=== PATIENT | female | born 1975 | race Caucasian/White ===

== ENCOUNTER → 2020-07-08 10:23 | Outpatient (BNVA) | payer OTHER, SELFPAY | PROVIDERS: PCP Internal Medicine; Referring Provider Internal Medicine; Visit Provider Surgery | DX: E66.9 Obesity, unspecified (principal); Z68.39 Body mass index [BMI] 39.0-39.9, adult; Z71.3 Dietary counseling and surveillance | CPT/HCPCS: 99214 ==

== ENCOUNTER → 2020-08-16 10:55 | Outpatient (BNVA) | payer OTHER, SELFPAY | PROVIDERS: PCP Internal Medicine; Visit Provider Physician Assistant | DX: Z01.818 Encounter for other preprocedural examination (principal); E66.9 Obesity, unspecified; Z68.39 Body mass index [BMI] 39.0-39.9, adult | CPT/HCPCS: 99212 ==

== ENCOUNTER 2020-08-18 09:33 | Outpatient (REF) | payer OTHER, SELFPAY ==
--- NOTE | 2020-08-18 09:50 | ECG_ITS ---
Test Reason : SOB Blood Pressure : / mmHG Vent. Rate : 066 BPM Atrial Rate : 066 BPM P-R Int : 156 ms QRS Dur : 100 ms QT Int : 414 ms P-R-T Axes : 039 039 028 degrees QTc Int : 434 ms Normal sinus rhythm Normal ECG When compared with ECG of 29-JAN-2020 11:52, No significant change was found Referred By: Rose Craven Electronically Signed By:PIPPA ARREOLA MD
[2020-08-18 11:17] LABS: Albumin Level 3.7 g/dL (3.5-5.0); Anion Gap 12 (12-20); Blood Urea Nitrogen 13 mg/dL (9-16); Calcium 8.4 mg/dL (8.4-10.2); Carbon Dioxide 19 mmol/L (22-29); Chloride 112 mmol/L (96-108); Estimated Glomerular Filt Rate > 60; Glucose Random 107 mg/dL (60-115); Potassium 4.4 mmol/l (3.3-5.1); Sodium 139 mmol/L (135-145)
[2020-08-18 12:18] LABS: Glucose Urine UA NEG (NEG); Leukocyte Esterase Urine NEG (NEG); Nitrite Urine NEG (NEG); PH 5.5 (5.0-8.0); Specific Gravity - Urine >= 1.030 (1.005-1.025); Urine Blood NEG (NEG); Urine Ketones NEG (NEG); Urine Protein NEG (NEG-TRACE)
[2020-08-18 12:19] LABS: Appearance Urine HAZY; Color Urine YELLOW
== END 2020-08-18 09:34 | disposition home or self-care (01) ==
LOC: HO.LAB 09:33
PROVIDERS: PCP Internal Medicine; Visit Provider Surgery
DX: Z01.818 Encounter for other preprocedural examination (principal); R06.02 Shortness of breath
CPT/HCPCS: 80048; 81003; 82040; 93005

== ENCOUNTER 2020-08-20 12:43 | Outpatient (REF) | payer OTHER, SELFPAY ==
[2020-08-20 14:18] LABS: MANUAL DIFF FLAG NO
[2020-08-20 14:24] LABS: Basophils Percent Auto 0.5 % (0-2); Eosinophils Absolute Auto 0.3 X10*3/uL (0.0-0.4); Eosinophils Percent Auto 3.5 % (0-4); Hematocrit 42.7 % (37-47); Hemoglobin 14.2 g/dl (12.0-16.0); Imm Gran Abs Auto 0.02 X10*3/uL (0.00-0.03); Imm Gran Pct Auto 0.3 % (0.0-0.4); Lymphocytes Absolute Auto 2.3 X10*3/uL (1.2-4.9); Lymphocytes Percent Auto 29.1 % (20-40); Mean Corpuscular HGB Conc 33.3 g/dl (31.0-35.0); Mean Corpuscular Volume 96.2 fL (80-98); Mean Platelet Volume 10.5 fL (9.4-12.3); Monocytes Absolute Auto 0.8 X10*3/uL (0.1-1.2); Monocytes Percent Auto 9.5 % (2-11); Neutrophils Absolute Auto 4.5 X10*3/uL (2.0-8.3); Neutrophils Percent Auto 57.1 % (45-73); Platelet Count 246 X10*3/uL (160-400); Red Blood Count 4.44 X10*6/uL (4.20-5.50); Red Cell Distribution Width 12.2 % (11.0-16.0)
== END 2020-08-20 12:44 | disposition home or self-care (01) ==
LOC: HO.LAB 12:43
PROVIDERS: Absent Provider Surgery; PCP Internal Medicine; Visit Provider Physician Assistant
DX: Z01.818 Encounter for other preprocedural examination (principal); Z90.3 Acquired absence of stomach [part of]
CPT/HCPCS: 36415; 85025

== ENCOUNTER 2020-08-25 16:39 | Inpatient (IN) | payer OTHER, SELFPAY ==
[2020-08-19 09:57] VITALS: BMI 39.8
--- NOTE | 2020-08-20 13:49 | HO.ANESPROP2 ---
Documented by User: Laura Dawn 08/24/20 13:16 HPI - Anesthesia Eval Consult details Narrative: 45yo F for Gastrectomy Sleeve s/p c-spine fusion PMFSH Past Medical History Medical History (Updated 08/19/20 @ 10:07 by Raquel Soares) Anxiety Chronic back pain Crohn's disease DDD (degenerative disc disease) Depression Hypothyroidism Lab test negative for COVID-19 virus Obesity (BMI 30-39.9) Obstructive sleep apnea Type II diabetes mellitus Wears partial dentures Family History Family History Father No problems noted. Mother Diabetes mellitus Brother No problems noted. Brother No problems noted. Brother No problems noted. Brother No problems noted. Brother No problems noted. Sister Type I diabetes mellitus Sister No problems noted. Son No problems noted. Son No problems noted. Son No problems noted. Daughter No problems noted. Daughter No problems noted. Surgical History Surgical History (Updated 08/19/20 @ 10:02 by Raquel Soares) History of Achilles tendon repair History of bilateral tubal ligation History of section History of fusion of cervical spine History of laparoscopic cholecystectomy Other specified postprocedural states Social History Social History (Updated 08/19/20 @ 10:06 by Raquel Soares) Alcohol intake: never Smoking Status: Never smoker Meds Allergies Allergy/AdvReac Type Severity Reaction Status Date / Time codeine [CODEINE] Allergy Intermediate HIVES, rash Verified 08/19/20 10:08 hydrocodone [From VICODIN] Allergy Intermediate HIVES Verified 08/19/20 10:08 Home Medications Medication Instructions Recorded Confirmed Type buspirone 5 mg tablet 5 mg PO BID tab 07/08/20 08/19/20 History calcium carbonate 600 mg calcium 600 mg PO BID tab 07/08/20 07/08/20 History (1,500 mg) tablet clonazepam 1 mg tablet 1 mg PO BID tab 07/08/20 08/19/20 History infliximab 100 mg intravenous IV Q8W ea 07/08/20 07/08/20 History solution levothyroxine 75 mcg tablet 75 mcg PO DAILY 07/08/20 08/19/20 History trazodone 100 mg tablet 100 mg PO BEDTIME 08/16/20 08/19/20 History Exam Exam Date and Time: August 20, 2020 1349 Height,Weight and Vital Signs: Height 5 ft 4 in Weight 105.233 kg Pertinent Lab Results Pertinent Lab Results: Laboratory Tests 08/18/20 09:49 Blood Type A Positive Antibody Screen NEGATIVE Laboratory Tests 08/18/20 09:49 Sodium 139 Potassium 4.4 Chloride 112 H Carbon Dioxide 19 L BUN 13 Creatinine 0.71 Calcium 8.4 Albumin 3.7 Laboratory Tests 08/20/20 13:05 WBC 8.0 Hgb 14.2 Hct 42.7 Plt Count 246 Narrative Narrative: EKG 08/2020: NSR Assessment and Plan Assessment Anesthesia Assessment: Chart Reviewed Documented by User: Jazlyn Anti 08/25/20 13:25 PMF Past Medical History Medical History (Updated 08/19/20 @ 10:07 by Raquel Soares) Anxiety Chronic back pain Crohn's disease DDD (degenerative disc disease) Depression Hypothyroidism Lab test negative for COVID-19 virus Obesity (BMI 30-39.9) Obstructive sleep apnea Type II diabetes mellitus Wears partial dentures Family History Family History Father No problems noted. Mother Diabetes mellitus Brother No problems noted. Brother No problems noted. Brother No problems noted. Brother No problems noted. Brother No problems noted. Sister Type I diabetes mellitus Sister No problems noted. Son No problems noted. Son No problems noted. Son No problems noted. Daughter No problems noted. Daughter No problems noted. Surgical History Surgical History (Updated 08/19/20 @ 10:02 by Raquel Soares) History of Achilles tendon repair History of bilateral tubal ligation History of section History of fusion of cervical spine History of laparoscopic cholecystectomy Other specified postprocedural states Social History Social History (Updated 08/19/20 @ 10:06 by Raquel Soares) Alcohol intake: never Smoking Status: Never smoker Meds Allergies Allergy/AdvReac Type Severity Reaction Status Date / Time codeine [CODEINE] Allergy Intermediate HIVES, rash Verified 08/19/20 10:08 hydrocodone [From VICODIN] Allergy Intermediate HIVES Verified 08/19/20 10:08 Home Medications Medication Instructions Recorded Confirmed Type buspirone 5 mg tablet 5 mg PO BID tab 07/08/20 08/19/20 History calcium carbonate 600 mg calcium 600 mg PO BID tab 07/08/20 07/08/20 History (1,500 mg) tablet clonazepam 1 mg tablet 1 mg PO BID tab 07/08/20 08/19/20 History infliximab 100 mg intravenous IV Q8W ea 07/08/20 07/08/20 History solution levothyroxine 75 mcg tablet 75 mcg PO DAILY 07/08/20 08/19/20 History trazodone 100 mg tablet 100 mg PO BEDTIME 08/16/20 08/19/20 History Exam Airway Mallampati Class: I TM Dist: >3cm Neck ROM: Full Partial: Upper Loose/Missing/Broken Teeth: Yes, Upper and Lower Heart: RRR Lungs: CTA Assessment and Plan Assessment Anesthesia Assessment: Anesthesia Plan Discussed and Chart Reviewed Final Anesthetic Review NPO: Yes ASA Class: II Final Preanesthetic Review: Meds/Allgs Chart Reviewed, Consent Obtained/Reviewed and Anes Risks/Benef Reviewed Patient Risk: Low Procedure Risk: Intermediate Anesthetic Plan Anesthetic Plan: GA Disposition: Standard PACU
--- NOTE | 2020-08-24 17:24 | MHC.SHP ---
Pre-Procedural Eval Section B Chief Complaint: obesity Allergies: Allergies Allergy/AdvReac Type Severity Reaction Status Date / Time codeine [CODEINE] Allergy Intermediate HIVES, rash Verified 08/19/20 10:08 hydrocodone [From VICODIN] Allergy Intermediate HIVES Verified 08/19/20 10:08 Plan Patient has been examined and remains a candidate for the planned procedure
[2020-08-25] VITALS (13 sets, daily range): BP systolic 107–173; BP diastolic 69–89; PULSE 58–91; RESP 12–18; TEMP 36–36.8; O2SAT 86–100
[2020-08-25 10:54] LABS: COVID-19 Test Negative (Negative); IDNOW Serial# 9DD0AD1C
[2020-08-25] MEDS: Lactated Ringers 1,000 ML 125 ML IVCONT ×2 (11:02→19:52)
--- NOTE | 2020-08-25 13:32 | HO.ANESPROP2 ---
FORMERLY [facility] Past Medical History Medical History (Updated 08/19/20 @ 10:07 by Raquel Soares) Anxiety Chronic back pain Crohn's disease DDD (degenerative disc disease) Depression Hypothyroidism Lab test negative for COVID-19 virus Obesity (BMI 30-39.9) Obstructive sleep apnea Type II diabetes mellitus Wears partial dentures Family History Family History Father No problems noted. Mother Diabetes mellitus Brother No problems noted. Brother No problems noted. Brother No problems noted. Brother No problems noted. Brother No problems noted. Sister Type I diabetes mellitus Sister No problems noted. Son No problems noted. Son No problems noted. Son No problems noted. Daughter No problems noted. Daughter No problems noted. Surgical History Surgical History (Updated 08/19/20 @ 10:02 by Raquel Soares) History of Achilles tendon repair History of bilateral tubal ligation History of section History of fusion of cervical spine History of laparoscopic cholecystectomy Other specified postprocedural states Social History Social History (Updated 08/19/20 @ 10:06 by Raquel Soares) Alcohol intake: never Smoking Status: Never smoker Meds Allergies Allergy/AdvReac Type Severity Reaction Status Date / Time codeine [CODEINE] Allergy Intermediate HIVES, rash Verified 08/19/20 10:08 hydrocodone [From VICODIN] Allergy Intermediate HIVES Verified 08/19/20 10:08 Home Medications Medication Instructions Recorded Confirmed Type buspirone 5 mg tablet 5 mg PO BID tab 07/08/20 08/19/20 History calcium carbonate 600 mg calcium 600 mg PO BID tab 07/08/20 07/08/20 History (1,500 mg) tablet clonazepam 1 mg tablet 1 mg PO BID tab 07/08/20 08/19/20 History infliximab 100 mg intravenous IV Q8W ea 07/08/20 07/08/20 History solution levothyroxine 75 mcg tablet 75 mcg PO DAILY 07/08/20 08/19/20 History trazodone 100 mg tablet 100 mg PO BEDTIME 08/16/20 08/19/20 History Exam Exam Date and Time: August 25, 2020 1332 Height,Weight and Vital Signs: Height 5 ft 4 in Weight 105.233 kg Last Vital Signs Temp 97.9 F 08/25/20 10:42 Pulse 68 08/25/20 10:42 Resp 16 08/25/20 10:42 BP 107/70 08/25/20 10:42 Pulse Ox 95 08/25/20 10:42 Pertinent Lab Results Pertinent Lab Results: Laboratory Tests 08/18/20 08/25/20 09:49 10:30 COVID-19 (ADONAY) Negative COVID-19 Clin Com See Note Blood Type A Positive Antibody Screen NEGATIVE Assessment and Plan Assessment Anesthesia Assessment: Anesthesia Plan Discussed and Chart Reviewed Final Anesthetic Review NPO: Yes ASA Class: II Final Preanesthetic Review: No Changes in Pt Med Stat
--- NOTE | 2020-08-25 16:35 | W.PM.OPN ---
Operative Note Operative Note Date of Service: 08/25/20 Narrative: Patient was brought into the operating room and placed on the operating room table in the supine position. General anesthesia was induced. Normal DVT prophylaxis was instituted and the patient received 2 grams of cefotetan preoperatively. The abdomen was then prepped and draped in the normal sterile fashion. A safety time-out was performed. A mixture of 1% lidocaine with epinephrine and ??% Marcaine plain was used to anesthetize the planned incision site in the left upper quadrant. A #11 scalpel was used to make a 5 mm left upper quadrant transverse incision through which a veress needle was placed. Three pops were heard going through the fascia. A saline drop test was used to confirm that the veress needle was intraabdominal. An optiview technique was then used to place a 5mm port in the left upper quadrant. A 5 mm 30 degree laproscope was then placed through this port and the abdominal cavity was surveyed and was normal With the exception of some omental adhesions to the central abdominal wall. The patient was placed in reverse Trendelenburg positioning. A sarah liver retractor was then placed in the subxyphoid position and it was used to hold up the left lobe of the liver to the abdominal wall. This was secured to the bed using the liver retractor camacho. A NINI block was then performed for pain control on the right side of the abdomen. A 5 mm port was placed in the right upper quadrant near the falciform ligament. A 12 mm port was then placed in the mid epigastrium. One additional 5 mm port was placed in the left upper quadrant just to the left of the placement of the first port. I then performed a NINI block on the left side of the abdomen. I then removed the epigastric fat pad; there was no evidence of hiatal hernia. I then opened up the angle of His. We then gained entry into the lesser sac about 4-5 cm from the pylorus. I had anesthesia place a 34 Portuguese orogastric tube into the distal antrum to use as a sizing tool for gastric pouch size. I divided the short gastric vessels up to the angle of His. We then started the creation of the gastric pouch by firing a 60 mm purple load endostapler up the stomach about 4-5 cm from the pylorus. We completed the creation of the gastric pouch using a total of 4 firings of a 60 mm purple load stapler. We had anesthesia remove the orogastric tube, then we clamped across the distal antrum using a fired 60 mm endostapler. We flattened the patient and then instilled normal saline surrounding the newly created staple line. I then performed an on-table endoscopy. I passed the gastroscopy into the posterior oropharynx and down the esophagus evaluating the esophageal mucosa which was normal. There was no evidence of hiatal hernia. I passed the gastroscope into the gastric pouch and insufflated the gastric pouch. There was healthy pink mucosa and no evidence of active bleeding. There was no evidence of leak on laparoscopy. I desufflated the gastric pouch and removed the endoscope. I removed the endostapler from the abdomen and suctioned the fluid from the left upper quadrant. I then removed the partial gastrectomy specimen through the epigastric 12 mm port site. I reapproximated the 12 mm port using a 0 maxon suture with a laparoscopic suture passer. I instilled local anesthetic into the fascial closure site and tied the suture down at a pressure of 8-10 mm of Hg. There was no residual fascial defect. We removed the liver retractor and the left upper quadrant 5 mm ports under direct visualization. There was no evidence of any active bleeding. I desufflated the abdomen through the last remaining port and removed the laparoscope an d 5 mm port. We reapproximated all incisions with a 4-0 monocryl subcuticular stitch. We cleaned and dried the abdominal skin and applied dermabond skin glue. All count were correct at the end of the case. The patient was awake and in stable condition prior to extubation and transfer to the recovery room.
--- NOTE | 2020-08-25 16:36 | PM.OP ---
Brief Operative Note Date of Service: 08/25/20 Pre-op diagnosis: obesity BMI 39.6, sleep apnea, type 2 diabetes mellitus Post-op diagnosis: same Procedure: laparoscopic sleeve gastrectomy, brittny block, and intraoperative endoscopy Implants: none Surgeon: Rose Craven MD Anesthesia: GETA Fire Alarm Technician: Jeannie German Estimated blood loss (mL): 10 Pathology: other ( partial gastrectomy) Condition: stable Disposition: PACU
[2020-08-25 17:15] LABS: Glucose, Whole Blood 152 mg/dL (60-115)
[2020-08-25] MEDS: fentaNYL citrate/PF 100 MCG/2 ML VIAL 25 MCG IVPUSH ×2 (17:18→17:40)
[2020-08-25] MEDS: ondansetron HCL 4 MG/2 ML VIAL IVPUSH (17:26)
[2020-08-25] MEDS: oxyCODONE HCl Immed Release 5 MG TABLET 10 MG PO (18:58)
[2020-08-25] MEDS: Metoclopramide HCl 10 MG/2 ML VIAL IVPUSH (19:51)
[2020-08-25] MEDS: busPIRone HCl 5 MG TABLET PO (21:02)
[2020-08-25] MEDS: traZODone HCL 100 MG TABLET PO (21:02)
[2020-08-25] MEDS: clonazePAM 1 MG TABLET PO (21:02)
[2020-08-25] MEDS: Famotidine/PF 20 MG/2 ML VIAL IVPUSH (21:29)
[2020-08-26] MEDS: ondansetron HCL 4 MG/2 ML VIAL IVPUSH ×2 (00:48→08:52)
[2020-08-26] MEDS: 0.9 % Sodium Chloride Flush 3 ML SYRINGE IVFLUSH (00:48)
[2020-08-26 03:07] VITALS: BP 142/67; PULSE 65; RESP 16; TEMP 36.9; O2SAT 100
[2020-08-26] MEDS: HYDROmorphone HCl 0.5 MG/0.5 ML SYRINGE 0.25 MG IVPUSH ×2 (03:58→08:49)
[2020-08-26 04:25] LABS: Basophils Percent Auto 0.1 % (0-2); Eosinophils Percent Auto 0.1 % (0-4); Hematocrit 39.2 % (37-47); Hemoglobin 13.2 g/dl (12.0-16.0); Imm Gran Abs Auto 0.04 X10*3/uL (0.00-0.03); Imm Gran Pct Auto 0.3 % (0.0-0.4); Lymphocytes Absolute Auto 0.9 X10*3/uL (1.2-4.9); MANUAL DIFF FLAG NO; Mean Corpuscular HGB Conc 33.7 g/dl (31.0-35.0); Mean Corpuscular Volume 95.1 fL (80-98); Mean Platelet Volume 9.9 fL (9.4-12.3); Monocytes Absolute Auto 0.6 X10*3/uL (0.1-1.2); Neutrophils Absolute Auto 10.8 X10*3/uL (2.0-8.3); Neutrophils Percent Auto 87.5 % (45-73); Platelet Count 206 X10*3/uL (160-400); Red Blood Count 4.12 X10*6/uL (4.20-5.50); Red Cell Distribution Width 11.9 % (11.0-16.0); White Blood Count 12.3 X10*3/uL (4.8-10.8)
[2020-08-26 04:46] LABS: Anion Gap 14 (12-20); Blood Urea Nitrogen 8 mg/dL (9-16); Carbon Dioxide 20 mmol/L (22-29); Chloride 103 mmol/L (96-108); Estimated Glomerular Filt Rate > 60; Glucose Random 126 mg/dL (60-115); Potassium 4.1 mmol/l (3.3-5.1); Sodium 133 mmol/L (135-145)
[2020-08-26] MEDS: Lactated Ringers 1,000 ML 125 ML IVCONT (05:09)
[2020-08-26] MEDS: Levothyroxine Sodium 75 MCG TABLET PO (06:21)
[2020-08-26 07:59] VITALS: BP 124/65; PULSE 75; RESP 16; TEMP 37; O2SAT 100
[2020-08-26] MEDS: clonazePAM 1 MG TABLET PO (08:51)
[2020-08-26] MEDS: busPIRone HCl 5 MG TABLET PO (08:51)
[2020-08-26] MEDS: Famotidine/PF 20 MG/2 ML VIAL IVPUSH (08:52)
--- NOTE | 2020-08-26 09:50 | HO.POSTANES ---
Post Anesthesia Evaluation Post Anesthesia Evaluation Vital Signs: Vital Signs Temp Pulse Resp BP Pulse Ox 08/26/20 07:59 98.6 F 75 16 124/65 100 08/26/20 03:07 98.5 F 65 16 142/67 H 100 08/25/20 23:52 98.2 F 91 18 136/85 100 Anesthesia: General Endotracheal-GETA Mental Status: Awake Pain Control: Satisfactory Nausea/Vomiting: None Hydration: Adequate Anesthesia-Related Issues: No Anes. Related Issues
--- NOTE | 2020-08-26 10:23 | PM.PNGS ---
Subjective Subjective Date of Service: 08/26/20 Interval history: Pod #1 s/p lap sleeve gastrectomy. Doing well. Tolerating stage 3 diet, ambulating in hallway. Pain well controlled. Denies nausea or vomiting. Vitals and labs reviewed and are within limit for post op day 1. On exam, patient is well appearing, abdomen is soft, nd, mild appropriate incisional tenderness. Incisions c/d/I with dermabond in place. Plan: d/c home today. Follow up with me in 2 weeks. Physical Exam Vital Signs: Vital Signs: Last Vital Signs Temp 98.6 F 08/26/20 07:59 Pulse 75 08/26/20 07:59 Resp 16 08/26/20 07:59 BP 124/65 08/26/20 07:59 Pulse Ox 100 08/26/20 07:59 Body Mass Index 39.8 Const: General: cooperative, healthy appearing, comfortable, no acute distress and awake GI: Inspection: Yes incision (Clean dry intact with Dermabond in place) and Yes obesity Palpation (GI): Soft to palpation and Tenderness to palpation present (GI) (Mild appropriate incisional tenderness) Extrem: General: Yes normal to inspection, Yes no pedal edema and Yes no calf tenderness Progress Note: A&P Assessment and plan (1) History of sleeve gastrectomy: Status: Acute Assessment and Plan: Postoperative day 1. Status post laparoscopic sleeve gastrectomy doing well. Patient is tolerating stage III diet. She will be discharged home to follow up with me in 2 weeks time frame. Fall Risk Details Current Medications: Current Medications Generic Name Dose Route Start Last Admin Trade Name Freq PRN Reason Stop Dose Admin Albuterol Sulfate 2.5 mg 08/25/20 13:34 Albuterol Sulfate (0.083%) 2.5 Mg/3 Ml Vial.Neb INHALE ONCE PRN Wheezing Buspirone HCl 5 mg 08/25/20 21:00 08/26/20 08:51 Buspirone Hcl 5 Mg Tablet PO 5 mg BID NITA Administration Clonazepam 1 mg 08/25/20 21:00 08/26/20 08:51 Clonazepam 1 Mg Tablet PO 1 mg BID NITA Administration Famotidine 20 mg 08/25/20 21:00 08/26/20 08:52 Famotidine/Pf 20 Mg/2 Ml Vial IVPUSH 20 mg BID NITA Administration Hydromorphone HCl 0.25 mg 08/25/20 16:39 08/26/20 08:49 Hydromorphone Hcl 0.5 Mg/0.5 Ml Syringe IVPUSH 0.25 mg Q4H PRN Administration Pain, Moderate (Pain Scale 4-6 Lactated Ringer's 1,000 mls @ 125 mls/hr 08/25/20 10:30 08/26/20 05:09 Lr IVCONT 125 mls/hr .Q8H NITA Administration Acetaminophen 1,000 mg in 100 mls @ 16.7 mls/hr 08/25/20 21:00 08/26/20 08:51 Ofirmev IV 16.7 mls/hr .Q6H NITA Administration Levothyroxine Sodium 75 mcg 08/26/20 06:00 08/26/20 06:21 Levothyroxine Sodium 75 Mcg Tablet PO 75 mcg DAILY NITA Administration Metoclopramide HCl 10 mg 08/25/20 16:39 08/25/20 19:51 Metoclopramide Hcl 10 Mg/2 Ml Vial IVPUSH 10 mg Q6H PRN Administration Nausea Ondansetron HCl 4 mg 08/26/20 00:00 08/26/20 08:52 Ondansetron Hcl 4 Mg/2 Ml Vial IVPUSH 4 mg Q8H NITA Administration Sodium Chloride 3 ml 08/26/20 00:00 08/26/20 08:52 0.9 % Sodium Chloride Flush 3 Ml Syringe IVFLUSH Not Given QSHIFT NITA Trazodone HCl 100 mg 08/25/20 21:00 08/25/20 21:02 Trazodone Hcl 100 Mg Tablet PO 100 mg BEDTIME NITA Administration Time Spent With Patient Time: Total time spent is greater than 50% in coordination of care (as documented) at patient's floor/unit and/or counseling patient: Time with patient: less than 15 minutes
--- NOTE | 2020-08-26 10:45 | MHC.CM.PN ---
PT ADMITTED S/P GASTRIC SLEEVE, PLAN TO DISCHARGE HOME W/NO SERVICES, TO TRANSPORT.
--- NOTE | 2020-08-26 10:46 | MHC.CM.PN ---
WILL ASK CM OFFICE TO UPDATE PCP
[2020-08-26 12:00] VITALS: BP 134/80; PULSE 65; RESP 16; TEMP 36.3; O2SAT 100
--- NOTE | 2020-08-26 12:04 | MHC.CM.PN ---
DISCHARGE NOTE: PT TO DISCHARGE HOME/SELF CARE TODAY, RN AWARE
--- NOTE | 2020-09-08 15:59 | PM.DS ---
DS: Providers Provider Date of admission: 08/25/20 16:39 Primary care physician: Bryanna Ulloa MD DS: Diagnosis Discharge Diagnosis (1) History of sleeve gastrectomy: Status: Acute DS: Medications Discharge Medications Home Medications: Home Medications Medication Instructions Recorded Confirmed buspirone 5 mg tablet 5 mg PO BID tab 07/08/20 09/07/20 clonazepam 1 mg tablet 1 mg PO BID tab 07/08/20 09/07/20 infliximab 100 mg intravenous IV Q8W ea 07/08/20 09/07/20 solution levothyroxine 75 mcg tablet 75 mcg PO DAILY 07/08/20 09/07/20 oxycodone 10 mg PO BID PRN 08/25/20 09/07/20 pregabalin 50 mg PO TID 08/25/20 09/07/20 topiramate 50 mg PO BID 08/25/20 09/07/20 trazodone 150 mg PO BEDTIME 08/25/20 09/07/20 Previous Rx's Medication Instructions Recorded acetaminophen 500 mg tablet 1,000 mg PO Q6H PRN #30 tab 08/16/20 docusate sodium 100 mg capsule 100 mg PO BID #30 cap 08/16/20 famotidine 20 mg tablet 20 mg PO DAILY #30 tab 08/16/20 promethazine 12.5 mg tablet 12.5 mg PO BID PRN #14 tab 09/06/20 DS: Summary Time Spent with Patient Time attestation: Total time spent providing and/or coordinating discharge services: Physical Exam Vital Signs: Vital Signs: Last Vital Signs Temp 97.3 F 08/26/20 12:00 Pulse 65 08/26/20 12:00 Resp 16 08/26/20 12:00 BP 134/80 08/26/20 12:00 Pulse Ox 100 08/26/20 12:00 Body Mass Index 39.8 DS: Data Data Completed and Pending Completed studies during hospitalization [Text1]: Pending at discharge 08/25/20 16:22 Surgical [PTH] Routine Procedures Excision of Stomach, Percutaneous Endoscopic Approach, Vertical (08/25/20) Labs on day of discharge: 08/18/20 09:49 Type and Screen Routine 08/25/20 Breakfast NPO Diet 08/25/20 10:19 Acetaminophen [Ofirmev] 1,000 mg in 100 ml IV PREOP 08/25/20 10:20 cefoTEtan disod/Dextrose,Iso [Cefotan] 2 gm in 50 ml IV PREOP 08/25/20 10:30 COVID-19 ID NOW ([place]) Stat Lactated Ringers [Lr] 1,000 ml IVCONT 125 mls/hr 08/25/20 10:50 Acetaminophen [Ofirmev] 1,000 mg in 100 ml IV As directed cefoTEtan disodium [Cefotan] 2 gm .ROUTE .STK-MED ONE 08/25/20 13:34 Continuous pulse oximetry CONT Oxygen administration Simple Mask 6 lpm Vital Signs Q1H Vital Signs Q5MIN Albuterol Sulfate (0.083%) [Ventolin (0.083%)] 2.5 mg INHALE ONCE PRN fentaNYL citrate/PF [Sublimaze] 25 mcg IVPUSH Q5M PRN fentaNYL citrate/PF [Sublimaze] 50 mcg IVPUSH Q5M PRN oxyCODONE HCl Immed Release [Roxicodone] 10 mg PO ONCE PRN oxyCODONE HCl Immed Release [Roxicodone] 5 mg PO ONCE PRN 08/25/20 14:09 Ketamine HCl/NS 50 mg IVPUSH .STK-MED ONE Midazolam HCl/PF [Versed] 2 mg .ROUTE .STK-MED ONE fentaNYL citrate/PF [Sublimaze] 50 mcg .ROUTE .STK-MED ONE 08/25/20 14:10 Lidocaine HCl 2 % MPF [Xylocaine 2 % MPF] 5 ml .ROUTE .STK-MED ONE Rocuronium [place] [Zemuron] 100 mg IV .STK-MED ONE dexAMETHasone sod phosphate [Decadron] 4 mg .ROUTE .STK-MED ONE ondansetron HCL [Zofran] 4 mg .ROUTE .STK-MED ONE 08/25/20 14:29 Bupivacaine MPF 0.25 % [Sensorcaine-MPF 0.25% 10 ML] 10 ml .ROUTE .STK-MED ONE Lidocaine HCl 1%/Epi 1:100,000 [Xylocaine 1 %-Epi 1:100,000] 20 ml .ROUTE .STK-MED ONE 08/25/20 15:10 Transfer Order Routine 08/25/20 16:03 HYDROmorphone HCl [Dilaudid] 2 mg .ROUTE .STK-MED ONE 08/25/20 16:05 Sugammadex Sodium [Bridion] 200 mg IVPUSH .STK-MED ONE 08/25/20 16:22 Surgical [PTH] Routine 08/25/20 16:39 Ambulate Q4H WHILE AWAKE Compression Therapy QSHIFT Head of bed elevation DIRECTED Incentive Spirometry Q1HR WHILE AWAKE Intake and Output Q4HR Up ad mark anthony .Continous Code Status Routine HYDROmorphone HCl [Dilaudid] 0.25 mg IVPUSH Q4H PRN Metoclopramide HCl [Reglan] 10 mg IVPUSH Q6H PRN 08/25/20 16:40 Vital Signs Q4H 08/25/20 17:01 Glucose, Whole Blood Routine 08/25/20 17:08 fentaNYL citrate/PF [Sublimaze] 100 mcg .ROUTE .STK-MED ONE 08/25/20 17:15 ondansetron HCL [Zofran] 4 mg .ROUTE .STK-MED ONE 08/25/20 17:23 ondansetron HCL [Zofran] 4 mg IVPUSH ONCE ONE 08/25/20 17:24 ondansetron HCL [Zofran] 4 mg IVPUSH ONCE ONE 08/25/20 18:00 ondansetron HCL [Zofran] 4 mg IVPUSH Q8H 08/25/20 Dinner Bariatric Phase 2 Diet 08/25/20 21:00 Acetaminophen [Ofirmev] 1,000 mg in 100 ml IV 16.7 mls/hr Famotidine/PF [Pepcid/PF] 20 mg IVPUSH BID busPIRone HCl [BuSpar] 5 mg PO BID clonazePAM [KlonoPIN] 1 mg PO BID traZODone HCL [Desyrel] 100 mg PO BEDTIME 08/26/20 00:00 0.9 % Sodium Chloride Flush [NS Flush] 3 ml IVFLUSH QSHIFT ondansetron HCL [Zofran] 4 mg IVPUSH Q8H 08/26/20 03:00 cefoTEtan disodium [Cefotan] 2 gm 0.9 % Sodium Chloride [Ns] 100 ml IV POSTOP@0300 08/26/20 03:04 cefoTEtan disodium [Cefotan] 2 gm .ROUTE .STK-MED ONE 08/26/20 04:12 Basic Metabolic Panel DAILY@0500 08/26/20 04:13 Complete Blood Count Auto Diff DAILY@05008/26/20 06:00 Levothyroxine Sodium [Synthroid] 75 mcg PO DAILY Laboratory Last Values WBC 12.3 X10*3/uL (4.8-10.8) H 08/26/20 04:13 RBC 4.12 X10*6/uL (4.20-5.50) L 08/26/20 04:13 Hgb 13.2 g/dl (12.0-16.0) 08/26/20 04:13 Hct 39.2 % (37-47) 08/26/20 04:13 MCV 95.1 fL (80-98) 08/26/20 04:13 MCH 32.0 pg (27.0-33.0) 08/26/20 04:13 MCHC 33.7 g/dl (31.0-35.0) 08/26/20 04:13 RDW 11.9 % (11.0-16.0) 08/26/20 04:13 Plt Count 206 X10*3/uL (160-400) 08/26/20 04:13 MPV 9.9 fL (9.4-12.3) 08/26/20 04:13 Immature Gran % (Auto) 0.3 % (0.0-0.4) 08/26/20 04:13 Neut % (Auto) 87.5 % (45-73) H 08/26/20 04:13 Lymph % (Auto) 7.0 % (20-40) L 08/26/20 04:13 [place] % (Auto) 5.0 % (2-11) 08/26/20 04:13 Eos % (Auto) 0.1 % (0-4) 08/26/20 04:13 Baso % (Auto) 0.1 % (0-2) 08/26/20 04:13 Lymph # (Auto) 0.9 X10*3/uL (1.2-4.9) L 08/26/20 04:13 [place] # (Auto) 0.6 X10*3/uL (0.1-1.2) 08/26/20 04:13 Eos # (Auto) 0.0 X10*3/uL (0.0-0.4) 08/26/20 04:13 Baso # (Auto) 0.0 X10*3/uL (0.0-0.2) 08/26/20 04:13 Abs Immat Gran (auto) 0.04 X10*3/uL (0.00-0.03) H 08/26/20 04:13 Absolute Neuts (auto) 10.8 X10*3/uL (2.0-8.3) H 08/26/20 04:13 Absolute Nucleated RBC 0.000 X10*3/uL (0.0-0.012) 08/26/20 04:13 Nucleated RBC % (auto) 0.0 /100WBC (0.0-0.2) 08/26/20 04:13 Sodium 133 mmol/L (135-145) L 08/26/20 04:12 Potassium 4.1 mmol/l (3.3-5.1) 08/26/20 04:12 Chloride 103 mmol/L (96-108) 08/26/20 04:12 Carbon Dioxide 20 mmol/L (22-29) L 08/26/20 04:12 Anion Gap 14 (-20) 08/26/20 04:12 BUN 8 mg/dL (9-16) L 08/26/20 04:12 Creatinine 0.80 mg/dL (0.5-1.4) 08/26/20 04:12 Estim Creat Clear Calc 105.0 08/26/20 04:12 Estimated GFR > 60 08/26/20 04:12 POC Glucose 152 mg/dL (60-115) H 08/25/20 17:01 Random Glucose 126 mg/dL (60-115) H 08/26/20 04:12 Calcium 8.0 mg/dL (8.4-10.2) L 08/26/20 04:12 COVID-19 ([facility]ONAY) Negative (Negative) 08/25/20 10:30 COVID-19 Clin Com See Note 08/25/20 10:30 Blood Type A Positive 08/18/20 09:49 Antibody Screen NEGATIVE 08/18/20 09:49 Discharge Plan Discharge Anticipated Discharge Date/Time: 08/26/20 11:11 Patient Disposition: Home, Self-Care Referrals: Beauzile,Thevenin C, MD [Primary Care Provider] - Discharge Medications: Continued trazodone 100 mg tablet 150 mg PO BEDTIME RF: 0 topiramate 50 mg tablet 50 mg PO BID RF: 0 pregabalin 50 mg capsule 50 mg PO TID RF: 0 oxycodone 10 mg tablet 10 mg PO BID PRN (Reason: pain) RF: 0 levothyroxine 75 mcg tablet 75 mcg PO DAILY RF: 0 buspirone 5 mg tablet 5 mg PO BID RF: 0 clonazepam 1 mg tablet 1 mg PO BID RF: 0 acetaminophen [Tylenol Extra Strength] 500 mg tablet 1,000 mg PO Q6H PRN (Reason: pain) Qty: 30 RF: 1 famotidine [Pepcid AC] 20 mg tablet 20 mg PO DAILY Qty: 30 RF: 1 docusate sodium [Colace] 100 mg capsule 100 mg PO BID Qty: 30 RF: 1 Held Remicade 100 mg recon soln IV Q8W RF: 0 Hold Instructions: Resume on 09/22/20. Discuss timing of first dose with Dr Craven Discontinued calcium carbonate [Calcium 600] 600 mg calcium (1,500 mg) tablet 600 mg PO BID RF: 0 No Action promethazine 12.5 mg tablet 12.5 mg PO BID PRN (Reason: nausea and vomiting) Qty: 14 RF: 0 Discharge Orders: Discharge Order (Routine); Ordered 08/26/20 Ordered By: Rose Craven Activity on Discharge: No heavy lifting Discharge Date/Time: 08/26/20 14:23 Activity Restrictions/Additional Instructions: No tub baths, sex or returning to work until discussed at first post op appointment. No exercise, alcohol, tobacco or illegal drug use. Continue to use incentive spirometer hourly while awake. Walk in home for 5- 10 minutes every 2 hours during the first week. Continue phase 3 diet until first post op appointment. Follow all instructions in the bariatric handbook and call with any questions.Discharge Instructions 1. Please call your doctor or come back to the emergency room should any new symptoms arise. 2. You will receive a courtesy call from [facility] 24-48 hours after discharge. 3. Activity: abstain from alcohol, practice limited stair climbing, no bending, no driving, no exercise, no illicit substances, no lifting, no sex, no tub bath, no work. 4. Diet: continue stage 3 protein shakes until your [address] Craven. 5. Dressing Change/Wound Care: Your incision is covered by surgical glue. If the area is tender, you may apply an ice pack for short intervals (no more than 20 minutes on, followed by at least 20 minutes off). Do not apply heat. Do not use creams, lotions, or topical antibiotics unless instructed to do so by your surgeon. These can cause infection or allergic reaction. 6. Call your doctor if: - Your temperature exceeds 101.5 F - You experience excessive pain or swelling - You have an unexpected reaction to medication - You have excessive bleeding - You experience continued vomiting/nausea - Your incision begins to separate - Your incision shows signs of infection such as increased redness, swelling, excessive pain, heat, or drainage (light blood or clear fluid is normal) 7. General instructions: No lifting greater than 5 lbs for the next 4 [address] within 24 hours of taking narcotic pain medications. If you do not move your bowels in the next 2 days, please take milk of magnesia over the counter. Please follow the post op diet and do not advance your diet until you are seen in the office in about 2 weeks. Please walk around your home every hour or two to prevent blood clots from forming in your legs. You do not need to wake from sleeping to walk. Please sleep in a bed or couch to prevent kinking at the hips and knees. Please take your incentive spirometer (your lung voltage tester) home with you and use it for the next few days to prevent pneumonias. You may shower, no hot tubs, baths or swimming pools. Please call the office with any questions or concerns such as increasing abdominal pain, fever, chills, shortness of breath, chest pain, leg pain or swelling, or redness or drainage from your incisions. Please stay on stage 3 diet which includes sugar free clear liquids such as ice pops and jello and broth and crystal light. Avoid all carbonation. Please drink 3 protein shakes with at least 25-30 grams of protein daily or 3 of the Celebrate 4:1 shakes which can be purchased in our office. The Celebrate shakes have all of the bariatric vitamins you need if you consume these shakes. If you are drinking other protein shakes, you will need to purchase the Celebrate multivitamins and calcium that we provide in the office (they will provide all the vitamins you need). Please make sure you are consuming at least 40-60 ounces of water in addition to your 3 protein shakes daily. Do not hesitate to contact the office with any questions at . DATE OF SERVICE: August 25, 2020 ADMITTING DIAGNOSES:obesity DISCHARGE DIAGNOSES: same, s/p sleeve gastrectomy PROCEDURE PERFORMED: laparoscopic sleeve gastectomy DISCHARGE MEDICATIONS: 1. Simethicone 80mg q4h prn gas 2. Ondansetron 4mg po tid prn nausea 3. Famotidine 20mg po bid 4. Docusate sodium 100mg po bid DISCHARGE INSTRUCTIONS: The patient should continue on the stage III bariatric diet, which includes 3 protein shakes of at least 20- 30g of protein on a daily basis. The patient was encouraged to avoid drinking liquids with her protein shakes. She should wait 30-45 minutes in between her meals and drinking water. She should drink at least 40-60 ounces of water on a daily basis. She should ambulate while at home to avoid any blood clots in her lower extremities. She should call with any questions or concerns such as increase in abdominal pain, persistent nausea, vomiting, redness and drainage from her incisions, fever, chills, shortness of breast, or chest pain beyond what is normal for her. The patient should avoid all heavy lifting greater than 5 pounds for the next 4 weeks. The patient is already scheduled to follow up with me in 2 weeks' time, but should call the office with any questions prior to that follow up appointment. The patient should not advance her diet until she is seen in the office for the 2 week appointment. HOSPITAL COURSE: The patient was admitted after undergoing laparoscopic sleeve gastrectomy. She was started on stage II diet and was tolerating well without nausea or vomiting. Her pain was controlled on IV Dilaudid. All labs were within normal limits. On post-operative day #2 she was feeling better, nausea and epigastric pain improved and she was tolerating stage III bariatric diet well. She was discharged home. DISCHARGE DISPOSITION: Home. Visit Report Forms: Patient Portal Discharge page Care Plan Goals: weight loss Health Concerns: obesity Plan of Treatment: see discharge instructions
--- NOTE | 2020-09-14 11:12 | PM.DS ---
DS: Providers Provider Date of admission: 08/25/20 16:39 Primary care physician: Bryanna Ulloa MD DS: Diagnosis Discharge Diagnosis (1) History of sleeve gastrectomy: Status: Acute DS: Medications Discharge Medications Home Medications: Home Medications Medication Instructions Recorded Confirmed buspirone 5 mg tablet 5 mg PO BID tab 07/08/20 09/09/20 clonazepam 1 mg tablet 1 mg PO BID tab 07/08/20 09/09/20 infliximab 100 mg intravenous IV Q8W ea 07/08/20 09/09/20 solution levothyroxine 75 mcg tablet 75 mcg PO DAILY 07/08/20 09/09/20 oxycodone 10 mg PO BID PRN 08/25/20 09/09/20 pregabalin 50 mg PO TID 08/25/20 09/09/20 topiramate 50 mg PO BID 08/25/20 09/09/20 trazodone 150 mg PO BEDTIME 08/25/20 09/09/20 Previous Rx's Medication Instructions Recorded acetaminophen 500 mg tablet 1,000 mg PO Q6H PRN #30 tab 08/16/20 docusate sodium 100 mg capsule 100 mg PO BID #30 cap 08/16/20 famotidine 20 mg tablet 20 mg PO DAILY #30 tab 08/16/20 promethazine 12.5 mg tablet 12.5 mg PO BID PRN #14 tab 09/06/20 DS: Summary Time Spent with Patient Time attestation: DATE OF SERVICE: August 25, 2020 ADMITTING DIAGNOSES: morbid obesity DISCHARGE DIAGNOSES: same, s/p sleeve gastrectomy PROCEDURE PERFORMED:laparoscopic sleeve gastrectomy DISCHARGE MEDICATIONS: 1. Simethicone 80mg q4h prn gas 2. Ondansetron 4mg po tid prn nausea 3. Famotidine 20mg po bid 4. Docusate sodium 100mg po bid DISCHARGE INSTRUCTIONS: The patient should continue on the stage III bariatric diet, which includes 3 protein shakes of at least 20- 30g of protein on a daily basis. The patient was encouraged to avoid drinking liquids with her protein shakes. She should wait 30-45 minutes in between her meals and drinking water. She should drink at least 40-60 ounces of water on a daily basis. She should ambulate while at home to avoid any blood clots in her lower extremities. She should call with any questions or concerns such as increase in abdominal pain, persistent nausea, vomiting, redness and drainage from her incisions, fever, chills, shortness of breast, or chest pain beyond what is normal for her. The patient should avoid all heavy lifting greater than 5 pounds for the next 4 weeks. The patient is already scheduled to follow up with me in 2 weeks' time, but should call the office with any questions prior to that follow up appointment. The patient should not advance her diet until she is seen in the office for the 2 week appointment. HOSPITAL COURSE: The patient was admitted after undergoing laparoscopic sleeve gastrectomy. She was started on stage II diet and was tolerating well without nausea or vomiting. Her pain was controlled on IV Dilaudid. All labs were within normal limits. On post-operative day #2 she was feeling better, nausea and epigastric pain improved and she was tolerating stage III bariatric diet well. She was discharged home. DISCHARGE DISPOSITION: Home.Total time spent providing and/or coordinating discharge services:30 minutes Physical Exam Vital Signs: Vital Signs: Last Vital Signs Temp 97.3 F 08/26/20 12:00 Pulse 65 08/26/20 12:00 Resp 16 08/26/20 12:00 BP 134/80 08/26/20 12:00 Pulse Ox 100 08/26/20 12:00 Body Mass Index 39.8 DS: Data Data Completed and Pending Completed studies during hospitalization [Text1]: Pending at discharge 08/25/20 16:22 Surgical [PTH] Routine Procedures Excision of Stomach, Percutaneous Endoscopic Approach, Vertical (08/25/20) Labs on day of discharge: 08/18/20 09:49 Type and Screen Routine 08/25/20 Breakfast NPO Diet 08/25/20 10:19 Acetaminophen [Ofirmev] 1,000 mg in 100 ml IV PREOP 08/25/20 10:20 cefoTEtan disod/Dextrose,Iso [Cefotan] 2 gm in 50 ml IV PREOP 08/25/20 10:30 COVID-19 ID NOW ([place]) Stat Lactated Ringers [Lr] 1,000 ml IVCONT 125 mls/hr 08/25/20 10:50 Acetaminophen [Ofirmev] 1,000 mg in 100 ml IV As directed cefoTEtan disodium [Cefotan] 2 gm .ROUTE .RUST-MED ONE 08/25/20 13:34 Continuous pulse oximetry CONT Oxygen administration Simple Mask 6 lpm Vital Signs Q1H Vital Signs Q5MIN Albuterol Sulfate (0.083%) [Ventolin (0.083%)] 2.5 mg INHALE ONCE PRN fentaNYL citrate/PF [Sublimaze] 25 mcg IVPUSH Q5M PRN fentaNYL citrate/PF [Sublimaze] 50 mcg IVPUSH Q5M PRN oxyCODONE HCl Immed Release [Roxicodone] 10 mg PO ONCE PRN oxyCODONE HCl Immed Release [Roxicodone] 5 mg PO ONCE PRN 08/25/20 14:09 Ketamine HCl/NS 50 mg IVPUSH .STK-MED ONE Midazolam HCl/PF [Versed] 2 mg .ROUTE .STK-MED ONE fentaNYL citrate/PF [Sublimaze] 50 mcg .ROUTE .STK-MED ONE 08/25/20 14:10 Lidocaine HCl 2 % MPF [Xylocaine 2 % MPF] 5 ml .ROUTE .STK-MED ONE Rocuronium [place] [Zemuron] 100 mg IV .STK-MED ONE dexAMETHasone sod phosphate [Decadron] 4 mg .ROUTE .STK-MED ONE ondansetron HCL [Zofran] 4 mg .ROUTE .STK-MED ONE 08/25/20 14:29 Bupivacaine MPF 0.25 % [Sensorcaine-MPF 0.25% 10 ML] 10 ml .ROUTE .STK-MED ONE Lidocaine HCl 1%/Epi 1:100,000 [Xylocaine 1 %-Epi 1:100,000] 20 ml .ROUTE .STK-MED ONE 08/25/20 15:10 Transfer Order Routine 08/25/20 16:03 HYDROmorphone HCl [Dilaudid] 2 mg .ROUTE .STK-MED ONE 08/25/20 16:05 Sugammadex Sodium [Bridion] 200 mg IVPUSH .STK-MED ONE 08/25/20 16:22 Surgical [PTH] Routine 08/25/20 16:39 Ambulate Q4H WHILE AWAKE Compression Therapy QSHIFT Head of bed elevation DIRECTED Incentive Spirometry Q1HR WHILE AWAKE Intake and Output Q4HR Up ad mark anthony .Continous Code Status Routine HYDROmorphone HCl [Dilaudid] 0.25 mg IVPUSH Q4H PRN Metoclopramide HCl [Reglan] 10 mg IVPUSH Q6H PRN 08/25/20 16:40 Vital Signs Q4H 08/25/20 17:01 Glucose, Whole Blood Routine 08/25/20 17:08 fentaNYL citrate/PF [Sublimaze] 100 mcg .ROUTE .STK-MED ONE 08/25/20 17:15 ondansetron HCL [Zofran] 4 mg .ROUTE .STK-MED ONE 08/25/20 17:23 ondansetron HCL [Zofran] 4 mg IVPUSH ONCE ONE 08/25/20 17:24 ondansetron HCL [Zofran] 4 mg IVPUSH ONCE ONE 08/25/20 18:00 ondansetron HCL [Zofran] 4 mg IVPUSH Q8H 08/25/20 Dinner Bariatric Phase 2 Diet 08/25/20 21:00 Acetaminophen [Ofirmev] 1,000 mg in 100 ml IV 16.7 mls/hr Famotidine/PF [Pepcid/PF] 20 mg IVPUSH BID busPIRone HCl [BuSpar] 5 mg PO BID clonazePAM [KlonoPIN] 1 mg PO BID traZODone HCL [Desyrel] 100 mg PO BEDTIME 08/26/20 00:00 0.9 % Sodium Chloride Flush [NS Flush] 3 ml IVFLUSH QSHIFT ondansetron HCL [Zofran] 4 mg IVPUSH Q8H 08/26/20 03:00 cefoTEtan disodium [Cefotan] 2 gm 0.9 % Sodium Chloride [Ns] 100 ml IV POSTOP@0300 08/26/20 03:04 cefoTEtan disodium [Cefotan] 2 gm .ROUTE .STK-MED ONE 08/26/20 04:12 Basic Metabolic Panel DAILY@0500 08/26/20 04:13 Complete Blood Count Auto Diff DAILY@0500 08/26/20 06:00 Levothyroxine Sodium [Synthroid] 75 mcg PO DAILY Laboratory Last Values WBC 12.3 X10*3/uL (4.8-10.8) H 08/26/20 04:13 RBC 4.12 X10*6/uL (4.20-5.50) L 08/26/20 04:13 Hgb 13.2 g/dl (12.0-16.0) 08/26/20 04:13 Hct 39.2 % (37-47) 08/26/20 04:13 MCV 95.1 fL (80-98) 08/26/20 04:13 MCH 32.0 pg (27.0-33.0) 08/26/20 04:13 MCHC 33.7 g/dl (31.0-35.0) 08/26/20 04:13 RDW 11.9 % (11.0-16.0) 08/26/20 04:13 Plt Count 206 X10*3/uL (160-400) 08/26/20 04:13 MPV 9.9 fL (9.4-12.3) 08/26/20 04:13 Immature Gran % (Auto) 0.3 % (0.0-0.4) 08/26/20 04:13 Neut % (Auto) 87.5 % (45-73) H 08/26/20 04:13 Lymph % (Auto) 7.0 % (20-40) L 08/26/20 04:13 [place] % (Auto) 5.0 % (2-11) 08/26/20 04:13 Eos % (Auto) 0.1 % (0-4) 08/26/20 04:13 Baso % (Auto) 0.1 % (0-2) 08/26/20 04:13 Lymph # (Auto) 0.9 X10*3/uL (1.2-4.9) L 08/26/20 04:13 [place] # (Auto) 0.6 X10*3/uL (0.1-1.2) 08/26/20 04:13 Eos # (Auto) 0.0 X10*3/uL (0.0-0.4) 08/26/20 04:13 Baso # (Auto) 0.0 X10*3/uL (0.0-0.2) 08/26/20 04:13 Abs Immat Gran (auto) 0.04 X10*3/uL (0.00-0.03) H 08/26/20 04:13 Absolute Neuts (auto) 10.8 X10*3/uL (2.0-8.3) H 08/26/20 04:13 Absolute Nucleated RBC 0.000 X10*3/uL (0.0-0.012) 08/26/20 04:13 Nucleated RBC % (auto) 0.0 /100WBC (0.0-0.2) 08/26/20 04:13 Sodium 133 mmol/L (135-145) L 08/26/20 04:12 Potassium 4.1 mmol/l (3.3-5.1) 08/26/20 04:12 Chloride 103 mmol/L (96-108) 08/26/20 04:12 Carbon Dioxide 20 mmol/L (22-29) L 08/26/20 04:12 Anion Gap 14 (-20) 08/26/20 04:12 BUN 8 mg/dL (9-16) L 08/26/20 04:12 Creatinine 0.80 mg/dL (0.5-1.4) 08/26/20 04:12 Estim Creat Clear Calc 105.0 08/26/20 04:12 Estimated GFR > 60 08/26/20 04:12 POC Glucose 152 mg/dL (60-115) H 08/25/20 17:01 Random Glucose 126 mg/dL (60-115) H 08/26/20 04:12 Calcium 8.0 mg/dL (8.4-10.2) L 08/26/20 04:12 COVID-19 ([facility]) Negative (Negative) 08/25/20 10:30 COVID-19 Clin Com See Note 08/25/20 10:30 Blood Type A Positive 08/18/20 09:49 Antibody Screen NEGATIVE 08/18/20 09:49 Discharge Plan Discharge Anticipated Discharge Date/Time: 08/26/20 11:11 Patient Disposition: Home, Self-Care Referrals: Bryanna Ulloa MD [Primary Care Provider] - Discharge Medications: Continued trazodone 100 mg tablet 150 mg PO BEDTIME RF: 0 topiramate 50 mg tablet 50 mg PO BID RF: 0 pregabalin 50 mg capsule 50 mg PO TID RF: 0 oxycodone 10 mg tablet 10 mg PO BID PRN (Reason: pain) RF: 0 levothyroxine 75 mcg tablet 75 mcg PO DAILY RF: 0 buspirone 5 mg tablet 5 mg PO BID RF: 0 clonazepam 1 mg tablet 1 mg PO BID RF: 0 acetaminophen [Tylenol Extra Strength] 500 mg tablet 1,000 mg PO Q6H PRN (Reason: pain) Qty: 30 RF: 1 famotidine [Pepcid AC] 20 mg tablet 20 mg PO DAILY Qty: 30 RF: 1 docusate sodium [Colace] 100 mg capsule 100 mg PO BID Qty: 30 RF: 1 Held Remicade 100 mg recon soln IV Q8W RF: 0 Hold Instructions: Resume on 09/22/20. Discuss timing of first dose with Dr Craven Discontinued calcium carbonate [Calcium 600] 600 mg calcium (1,500 mg) tablet 600 mg PO BID RF: 0 No Action promethazine 12.5 mg tablet 12.5 mg PO BID PRN (Reason: nausea and vomiting) Qty: 14 RF: 0 Discharge Orders: Discharge Order (Routine); Ordered 08/26/20 Ordered By: Rose Craven Activity on Discharge: No heavy lifting Discharge Date/Time: 08/26/20 14:23 Activity Restrictions/Additional Instructions: No tub baths, sex or returning to work until discussed at first post op appointment. No exercise, alcohol, tobacco or illegal drug use. Continue to use incentive spirometer hourly while awake. Walk in home for 5- 10 minutes every 2 hours during the first week. Continue phase 3 diet until first post op appointment. Follow all instructions in the bariatric handbook and call with any questions.Discharge Instructions 1. Please call your doctor or come back to the emergency room should any new symptoms arise. 2. You will receive a courtesy call from [facility] 24-48 hours after discharge. 3. Activity: abstain from alcohol, practice limited stair climbing, no bending, no driving, no exercise, no illicit substances, no lifting, no sex, no tub bath, no work. 4. Diet: continue stage 3 protein shakes until your [address] Craven. 5. Dressing Change/Wound Care: Your incision is covered by surgical glue. If the area is tender, you may apply an ice pack for short intervals (no more than 20 minutes on, followed by at least 20 minutes off). Do not apply heat. Do not use creams, lotions, or topical antibiotics unless instructed to do so by your surgeon. These can cause infection or allergic reaction. 6. Call your doctor if: - Your temperature exceeds 101.5 F - You experience excessive pain or swelling - You have an unexpected reaction to medication - You have excessive bleeding - You experience continued vomiting/nausea - Your incision begins to separate - Your incision shows signs of infection such as increased redness, swelling, excessive pain, heat, or drainage (light blood or clear fluid is normal) 7. General instructions: No lifting greater than 5 lbs for the next 4 [address] within 24 hours of taking narcotic pain medications. If you do not move your bowels in the next 2 days, please take milk of magnesia over the counter. Please follow the post op diet and do not advance your diet until you are seen in the office in about 2 weeks. Please walk around your home every hour or two to prevent blood clots from forming in your legs. You do not need to wake from sleeping to walk. Please sleep in a bed or couch to prevent kinking at the hips and knees. Please take your incentive spirometer (your lung nurse staff industrial) home with you and use it for the next few days to prevent pneumonias. You may shower, no hot tubs, baths or swimming pools. Please call the office with any questions or concerns such as increasing abdominal pain, fever, chills, shortness of breath, chest pain, leg pain or swelling, or redness or drainage from your incisions. Please stay on stage 3 diet which includes sugar free clear liquids such as ice pops and jello and broth and crystal light. Avoid all carbonation. Please drink 3 protein shakes with at least 25-30 grams of protein daily or 3 of the Celebrate 4:1 shakes which can be purchased in our office. The Celebrate shakes have all of the bariatric vitamins you need if you consume these shakes. If you are drinking other protein shakes, you will need to purchase the Celebrate multivitamins and calcium that we provide in the office (they will provide all the vitamins you need). Please make sure you are consuming at least 40-60 ounces of water in addition to your 3 protein shakes daily. Do not hesitate to contact the office with any questions at . DATE OF SERVICE: August 25, 2020 ADMITTING DIAGNOSES:obesity DISCHARGE DIAGNOSES: same, s/p sleeve gastrectomy PROCEDURE PERFORMED: laparoscopic sleeve gastectomy DISCHARGE MEDICATIONS: 1. Simethicone 80mg q4h prn gas 2. Ondansetron 4mg po tid prn nausea 3. Famotidine 20mg po bid 4. Docusate sodium 100mg po bid DISCHARGE INSTRUCTIONS: The patient should continue on the stage III bariatric diet, which includes 3 protein shakes of at least 20- 30g of protein on a daily basis. The patient was encouraged to avoid drinking liquids with her protein shakes. She should wait 30-45 minutes in between her meals and drinking water. She should drink at least 40-60 ounces of water on a daily basis. She should ambulate while at home to avoid any blood clots in her lower extremities. She should call with any questions or concerns such as increase in abdominal pain, persistent nausea, vomiting, redness and drainage from her incisions, fever, chills, shortness of breast, or chest pain beyond what is normal for her. The patient should avoid all heavy lifting greater than 5 pounds for the next 4 weeks. The patient is already scheduled to follow up with me in 2 weeks' time, but should call the office with any questions prior to that follow up appointment. The patient should not advance her diet until she is seen in the office for the 2 week appointment. HOSPITAL COURSE: The patient was admitted after undergoing laparoscopic sleeve gastrectomy. She was started on stage II diet and was tolerating well without nausea or vomiting. Her pain was controlled on IV Dilaudid. All labs were within normal limits. On post-operative day #2 she was feeling better, nausea and epigastric pain improved and she was tolerating stage III bariatric diet well. She was discharged home. DISCHARGE DISPOSITION: Home. Visit Report Forms: Patient Portal Discharge page Care Plan Goals: weight loss Health Concerns: obesity Plan of Treatment: see discharge instructions
== END 2020-08-26 14:23 | disposition home or self-care (01) | DRG 403 ==
PROVIDERS: Nurse Practitioner; Physician Assistant; Admitting Provider Surgery; PCP Internal Medicine; Visit Provider Surgery
PROC: 0DB64Z3 Excision of Stomach, Percutaneous Endoscopic Approach, Vertical (ICD-10-PCS; CPT 43845; principal; 2020-08-25 11:40)
DX: E66.9 Obesity, unspecified (principal); E03.9 Hypothyroidism, unspecified; E11.9 Type 2 diabetes mellitus without complications; Z20.828 Contact with and (suspected) exposure to other viral communicable diseases; Z68.39 Body mass index [BMI] 39.0-39.9, adult; Z88.6 Allergy status to analgesic agent; Z79.899 Other long term (current) drug therapy
CPT/HCPCS: 36415; 80048; 82947; 85025; 86850; 86900; 86901; 87635; 88307; 88342; 99024; C1776; J0131; J1100; J1170; J2250; J2405; J2765; J3010

== ENCOUNTER → 2020-09-07 09:35 | Outpatient (BNVA) | payer OTHER, SELFPAY | PROVIDERS: PCP Internal Medicine; Visit Provider Physician Assistant | DX: E66.9 Obesity, unspecified (principal); Z68.36 Body mass index [BMI] 36.0-36.9, adult; K91.2 Postsurgical malabsorption, not elsewhere classified; Z98.84 Bariatric surgery status | CPT/HCPCS: 99212 ==

== ENCOUNTER → 2020-09-09 10:09 | Outpatient (BNVA) | payer OTHER, SELFPAY | PROVIDERS: PCP Internal Medicine; Visit Provider Surgery | DX: E66.9 Obesity, unspecified (principal); Z68.36 Body mass index [BMI] 36.0-36.9, adult; Z90.3 Acquired absence of stomach [part of] | CPT/HCPCS: 99212 ==

== ENCOUNTER → 2020-09-14 08:24 | Outpatient (BNVA) | payer OTHER, SELFPAY | PROVIDERS: PCP Internal Medicine; Visit Provider Physician Assistant | DX: E66.9 Obesity, unspecified (principal); Z68.36 Body mass index [BMI] 36.0-36.9, adult; Z90.3 Acquired absence of stomach [part of] | CPT/HCPCS: 99212 ==

== ENCOUNTER → 2020-09-16 08:24 | Outpatient (BNVA) | payer OTHER, SELFPAY | PROVIDERS: PCP Internal Medicine; Visit Provider Dietitian, Registered | DX: Z76.89 Persons encountering health services in other specified circumstances (principal) ==

== ENCOUNTER → 2020-09-23 10:52 | Outpatient (BNVA) | payer OTHER, SELFPAY | PROVIDERS: PCP Internal Medicine; Visit Provider Physician Assistant | DX: E66.9 Obesity, unspecified (principal); Z90.3 Acquired absence of stomach [part of]; Z68.36 Body mass index [BMI] 36.0-36.9, adult | CPT/HCPCS: 99212 ==

== ENCOUNTER → 2020-10-28 10:54 | Outpatient (BNVA) | payer OTHER, SELFPAY | PROVIDERS: PCP Internal Medicine; Visit Provider Dietitian, Registered ==

== ENCOUNTER → 2020-11-18 13:54 | Outpatient (BNVA) | payer OTHER, SELFPAY | PROVIDERS: PCP Internal Medicine; Visit Provider Surgery | DX: E66.9 Obesity, unspecified (principal); Z68.33 Body mass index [BMI] 33.0-33.9, adult | CPT/HCPCS: 99212 ==

== ENCOUNTER 2020-12-13 13:18 | Outpatient (REF) | payer OTHER, SELFPAY ==
[2020-12-13 14:22] LABS: MANUAL DIFF FLAG NO
[2020-12-13 14:27] LABS: Basophils Percent Auto 0.7 % (0-2); Eosinophils Absolute Auto 0.3 X10*3/uL (0.0-0.4); Eosinophils Percent Auto 4.7 % (0-4); Hematocrit 41.2 % (37-47); Hemoglobin 13.5 g/dl (12.0-16.0); Imm Gran Abs Auto 0.01 X10*3/uL (0.00-0.03); Imm Gran Pct Auto 0.2 % (0.0-0.4); Lymphocytes Absolute Auto 2.6 X10*3/uL (1.2-4.9); Lymphocytes Percent Auto 46.8 % (20-40); Mean Corpuscular HGB Conc 32.8 g/dl (31.0-35.0); Mean Corpuscular Hemoglobin 31.2 pg (27.0-33.0); Mean Corpuscular Volume 95.2 fL (80-98); Monocytes Absolute Auto 0.5 X10*3/uL (0.1-1.2); Monocytes Percent Auto 8.3 % (2-11); Neutrophils Absolute Auto 2.2 X10*3/uL (2.0-8.3); Neutrophils Percent Auto 39.3 % (45-73); Platelet Count 198 X10*3/uL (160-400); Red Blood Count 4.33 X10*6/uL (4.20-5.50); Red Cell Distribution Width 11.7 % (11.0-16.0); White Blood Count 5.5 X10*3/uL (4.8-10.8)
[2020-12-13 14:47] LABS: Alanine Aminotransferase 46 U/L (0-31); Albumin Level 4.1 g/dL (3.5-5.0); Alkaline Phosphatase 83 U/L (39-117); Anion Gap 16 (12-20); Aspartate Amino Transferase 50 U/L (5-31); Bilirubin Total 0.7 mg/dL (0.0-1.0); Blood Urea Nitrogen 14 mg/dL (9-16); C Reactive Protein 0.05 mg/dL (< or = 0.50); Calcium 9.2 mg/dL (8.4-10.2); Carbon Dioxide 22 mmol/L (22-29); Chloride 107 mmol/L (96-108); Cholesterol 187 mg/dL; Estimated Glomerular Filt Rate > 60; Glucose Random 81 mg/dL (60-115); HDL Cholesterol 53 mg/dL; LDL Cholesterol Calculated 113 mg/dl; Potassium 3.8 mmol/L (3.3-5.1); Sodium 141 mmol/L (135-145); Triglycerides 107 mg/dL
[2020-12-13 15:04] LABS: Estimated Average Glucose 85 mg/dL; Hemoglobin A1c % 4.6 %
[2020-12-13 15:08] LABS: Ferritin 159 ng/mL (10-250); TSH reflex Free T4 0.76 uIU/mL (0.32-4.0); Vitamin D 25-OH Total 23.3 ng/mL (>30)
[2020-12-13 15:23] LABS: Folate 13.2 ng/mL (> or = 4.0); Vitamin B12 745 pg/mL (200-900)
[2020-12-14 17:37] LABS: Calcium (PTHI) 9.3 mg/dL (8.6-10.2); PTHI 49 pg/mL (14-64)
[2020-12-15 00:47] LABS: Insulin Level Total 1.4 uIU/mL
[2020-12-16 01:01] LABS: Zinc 81 mcg/dL (60-130)
[2020-12-17 07:02] LABS: Vitamin B1 24 nmol/L (8-30)
[2020-12-17 14:41] LABS: Vitamin A 25 mcg/dL (38-98)
== END 2020-12-13 13:19 | disposition home or self-care (01) ==
LOC: HO.LAB 13:18
PROVIDERS: PCP Internal Medicine; Visit Provider Physician Assistant
DX: R20.2 Paresthesia of skin (principal); Z90.3 Acquired absence of stomach [part of]
CPT/HCPCS: 36415; 80053; 80061; 82306; 82607; 82728; 82746; 83036; 83525; 83970; 84425; 84443; 84590; 84630; 85025; 86140

== ENCOUNTER → 2020-12-16 10:58 | Outpatient (BNVA) | payer OTHER, SELFPAY | PROVIDERS: PCP Internal Medicine; Visit Provider Physician Assistant ==

== ENCOUNTER 2020-12-16 11:48 | Emergency (ER) | payer OTHER, SELFPAY ==
--- NOTE | ~2020-12-16 | CT_ITS ---
EXAMINATION: CT HEAD WITHOUT CONTRAST CLINICAL INFORMATION: Feeling off balance, headaches, confusion, paresthesias. COMPARISON: None. TECHNIQUE: Contiguous axial imaging was performed from the skull base to vertex without intravenous contrast. This CT examination was performed using dose optimization techniques as appropriate, variously including the following: * Automated exposure control * Adjustment of mA and/or kV according to patient size (this includes techniques or standardized protocols for targeted exams where dose is matched to indication/reason for exam; i.e. extremities or head) Use of iterative reconstruction technique DLP: 624 mGy-cm. FINDINGS: There is no evidence of acute intracranial hemorrhage or territorial infarction. No abnormal mass effect or midline shift is seen. Ulna to white matter differentiation is well preserved. No extra-axial fluid collections are identified. No hydrocephalus. No significant volume loss. There is no abnormal attenuation within the brain parenchyma. The osseous structures and soft tissues are normal. Moderate opacification of the right maxillary sinus with air-fluid level and aerosolized secretions. Minimal opacification of the right sphenoid sinus. The mastoid air cells and visualized portions of the paranasal sinuses are otherwise well aerated. CT/CT head/brain wo con IMPRESSION: No acute intracranial pathology. Paranasal opacification as above.
--- NOTE | ~2020-12-16 | XR_ITS ---
EXAMINATION: XR CHEST CLINICAL INFORMATION: Feeling off balance. Headache, confusion, paresthesias. COMPARISON: 01/29/2020 TECHNIQUE: 2 views of the chest were obtained. FINDINGS: Spinal stimulator wiring noted. Partially visualized cervical hardware. The lungs are well expanded. There is no focal consolidation, edema, or effusion. No pneumothorax. The cardiomediastinal silhouette is within normal limits. No acute osseous abnormality. XR/XR chest 2V IMPRESSION: Clear lungs.
[2020-12-16 11:52] VITALS: BP 130/80; PULSE 62; RESP 18; TEMP 36.8; O2SAT 99; BMI 32.5
--- NOTE | 2020-12-16 11:59 | PC.NURSE ---
unable to update med/surg history because provider from bariatric dept where patient was prior to coming to the ED is in the account.
--- NOTE | 2020-12-16 13:44 | ECG_ITS ---
Test Reason : GENERAL Blood Pressure : / mmHG Vent. Rate : 054 BPM Atrial Rate : 054 BPM P-R Int : 152 ms QRS Dur : 108 ms QT Int : 452 ms P-R-T Axes : 027 013 029 degrees QTc Int : 428 ms Sinus bradycardia Otherwise normal ECG When compared with ECG of 18-AUG-2020 10:04, No significant change was found Referred By: Aleja Khalil Electronically Signed By:PIPPA ARREOLA MD
[2020-12-16 14:35] LABS: MANUAL DIFF FLAG NO
[2020-12-16 14:40] LABS: Glucose Urine UA NEG (NEG); Leukocyte Esterase Urine TRACE (NEG); Nitrite Urine NEG (NEG); PH 5.5 (5.0-8.0); Specific Gravity - Urine >= 1.030 (1.005-1.025); UACC Culture Trigger YES; Urine Blood NEG (NEG); Urine Ketones 5 MG/DL (NEG); Urine Protein NEG (NEG-TRACE)
[2020-12-16 14:42] LABS: INTERNATIONAL NORM RATIO 1.1 (0.9-1.1); Prothrombin Time 13.4 SEC (10.8-13.0)
[2020-12-16 14:44] LABS: Basophils Percent Auto 0.7 % (0-2); Eosinophils Absolute Auto 0.3 X10*3/uL (0.0-0.4); Eosinophils Percent Auto 4.5 % (0-4); Hematocrit 41.8 % (37-47); Hemoglobin 13.8 g/dl (12.0-16.0); Imm Gran Abs Auto 0.01 X10*3/uL (0.00-0.03); Imm Gran Pct Auto 0.2 % (0.0-0.4); Lymphocytes Absolute Auto 2.3 X10*3/uL (1.2-4.9); Mean Corpuscular Hemoglobin 31.4 pg (27.0-33.0); Mean Corpuscular Volume 95.2 fL (80-98); Mean Platelet Volume 10.8 fL (9.4-12.3); Monocytes Absolute Auto 0.6 X10*3/uL (0.1-1.2); Monocytes Percent Auto 9.9 % (2-11); Neutrophils Absolute Auto 2.4 X10*3/uL (2.0-8.3); Neutrophils Percent Auto 42.7 % (45-73); Platelet Count 186 X10*3/uL (160-400); Red Blood Count 4.39 X10*6/uL (4.20-5.50); Red Cell Distribution Width 11.8 % (11.0-16.0); White Blood Count 5.5 X10*3/uL (4.8-10.8)
[2020-12-16 14:46] LABS: Appearance Urine CLOUDY; Color Urine YELLOW
[2020-12-16 14:57] LABS: Bacteria Urine TRACE /LPF; Mucus Urine 1+ /LPF; RBC Urine 0-2 /HPF (0); Squamous Epithelial Cell Urine 2+ /LPF
[2020-12-16 15:04] LABS: Alanine Aminotransferase 42 U/L (0-31); Albumin Level 4.1 g/dL (3.5-5.0); Alkaline Phosphatase 83 U/L (39-117); Anion Gap 11 (12-20); Aspartate Amino Transferase 41 U/L (5-31); Bilirubin Direct 0.3 mg/dL (0.0-0.5); Bilirubin Total 0.8 mg/dL (0.0-1.0); Blood Urea Nitrogen 15 mg/dL (9-16); C Reactive Protein 0.06 mg/dL (< or = 0.50); Calcium 9.2 mg/dL (8.4-10.2); Carbon Dioxide 27 mmol/L (22-29); Chloride 108 mmol/L (96-108); Creatinine Clr Calc Pharmacy 106.3; Estimated Glomerular Filt Rate > 60; Glucose Random 79 mg/dL (60-115); Magnesium 2.3 mg/dL (1.6-2.6); Potassium 4.2 mmol/L (3.3-5.1); Sodium 142 mmol/L (135-145)
[2020-12-16 15:09] LABS: Troponin-I High Sensitivity < 3.5 ng/L (<3.5-17.0)
[2020-12-16 15:25] LABS: HCG Quantitative < 2 mIU/mL; Thyroid Stimulating Hormone 0.83 uIU/mL (0.32-4.0)
--- NOTE | 2020-12-16 15:49 | ED.GENADULT ---
HPI - General Adult General Chief complaint: General Medical Stated complaint: neurological symptoms Time Seen by Provider: 12/16/20 12:23 Source: patient Mode of arrival: ambulatory Limitations: no limitations History of Present Illness HPI narrative: 45-year-old female with a past medical history of obesity status post sleeve gastrectomy on August 2020, and a pain stimulator to her back presenting to the ED with multiple complaints which include feeling off balance, headaches, confusion, forgetfulness, blurry vision, nausea, low-grade fevers 99.6-99.9 and bilateral hand and feet tingling over the past week. Reports she just followed up with her bariatric surgeon and they ordered tubes of blood and they reported that everything came back normal therefore they instructed her to come here for further evaluation treatment. Patient denies any other symptoms complaints or concerns at this time. Related Data Home Medications Medication Instructions Recorded Confirmed buspirone 5 mg tablet 5 mg PO BID tab 07/08/20 11/18/20 clonazepam 1 mg tablet 1 mg PO BID tab 07/08/20 11/18/20 infliximab 100 mg intravenous IV Q8W ea 07/08/20 11/18/20 solution levothyroxine 75 mcg tablet 75 mcg PO DAILY 07/08/20 11/18/20 oxycodone 10 mg PO BID PRN 08/25/20 11/18/20 calcium citrate 1,000 mg tablet 1,000 mg PO DAILY 11/18/20 11/18/20 [id number] 45 mg-folic cap PO DAILY cap 11/18/20 11/18/20 acid 800 mcg-vit K 120 mcg capsule trazodone 100 mg tablet 150 mg PO BEDTIME PRN 11/18/20 11/18/20 Previous Rx's Medication Instructions Recorded cholecalciferol (vitamin D3) 50 50 mcg PO DAILY #30 cap 12/15/20 mcg (2,000 unit) capsule Allergies Allergy/AdvReac Type Severity Reaction Status Date / Time codeine [CODEINE] Allergy Intermediate HIVES, rash Verified 12/16/20 11:21 hydrocodone [From VICODIN] Allergy Intermediate HIVES Verified 12/16/20 11:21 shellfish derived Allergy Intermediate swollen Verified 12/16/20 11:21 Review of Systems Review of Systems: Constitutional : + Fever, No Chills, No Night Sweats, No Fatigue, No Malaise ENT/Mouth : No Ear Pain, No Nasal Congestion, No Sinus Pain, No sore throat, No Rhinorrhea Eyes: No Eye Pain, No Swelling, No Redness, No Foreign Body, No Discharge, + Vision Changes Cardiovascular : No Chest Pain, No SOB, No Dyspnea on Exertion, No Orthopnea, No Palpitations Respiratory : No Cough, No Sputum, No Wheezing, No Dyspnea Gastrointestinal : + Nausea, No Vomiting, No Diarrhea, No Constipation, No abdominal Pain, No Hematochezia, No Melena Genitourinary : No Dysuria, No Urinary Frequency, No Urinary Incontinence, No Urgency, No Flank Pain Musculoskeletal : No joint pain, No Myalgias Skin : No lacerations Neuro : No Focal weakness, No Numbness, + Paresthesias, No Loss of Consciousness, No Dizziness, + Headache Yes all other systems are reviewed and are negative [facility] Past Medical History Attestation statement: The following information was validated with the patient. Medical History Anxiety Chronic back pain Crohn's disease DDD (degenerative disc disease) Depression Hypothyroidism Intestinal malabsorption following gastrectomy Lab test negative for COVID-19 virus Obesity (BMI 30-39.9) Obstructive sleep apnea Shortness of breath Type II diabetes mellitus Wears partial dentures Surgical History History of Achilles tendon repair History of bilateral tubal ligation History of section History of fusion of cervical spine History of laparoscopic cholecystectomy History of sleeve gastrectomy Other specified postprocedural states Family History Family History Father No problems noted. Mother Diabetes mellitus Brother No problems noted. Brother No problems noted. Brother No problems noted. Brother No problems noted. Brother No problems noted. Sister Type I diabetes mellitus Sister No problems noted. Son No problems noted. Son No problems noted. Son No problems noted. Daughter No problems noted. Daughter No problems noted. Social History Social History Household Members: Spouse and Family Housing: Apartment Alcohol intake: never Smoking Status: Never smoker Use of substances other than those prescribed or required for medical reasons: No Advance Directives: No Advance Directives Information Provided: No service: No Current occupational status: employed Physical Exam Vital Signs: Vital Signs: Last Vital Signs Temp 98.3 F 12/16/20 11:52 Pulse 62 12/16/20 11:52 Resp 18 12/16/20 11:52 BP 130/80 12/16/20 11:52 Pulse Ox 99 12/16/20 11:52 Body Mass Index 32.5 Vital signs have been reviewed as normal and appeared to be correct. Blood pressure normal. Heart rate normal. Respiration rate normal. Temperature normal. Oxygen saturation normal. Appearance: Alert. Oriented X3. No acute distress. Head: Normal external exam. Normocephalic. Atraumatic. Able to rotate head bilaterally. Eyes: PERRLA. EOMI. No nystagmus noted. Conjunctiva and sclera normal. Eyelids normal. Corneal reflex normal. ENT: EAC normal. TM's Normal. Hearing normal. Pharynx normal. Uvula midline. tongue midline. Moist mucous membranes. No trismus noted. No drooling noted. No muffled voice noted. No nystagmus noted. Neck: Normal inspection. Neck supple. FROM. No adenopathy. Trachea midline. Thyroid Normal. No meningeal signs. No neck mass noted. CVS: Normal heart rate and rhythm. Heart sound normal. No murmurs noted. Pulses normal throughout. Respiratory: No respiratory distress. Painless inspiration. Breath sounds normal. No wheezes/rales/rhonchi noted. Chest nontender. No accessory muscle usage noted or decreased air movement noted. Abdomen: Soft and nontender. Bowel sounds normal in all 4 quadrants. No distention noted. No organomegaly noted. No visible injury noted. Back: No CVA tenderness. Full range of motion noted. Skin: Skin warm and dry. Normal skin color. Normal skin turgor. No rashes/lesions/lacerations noted. Extremities: No lower extremity edema. Extremities exhibit normal range of motion. Extremities nontender. Able to shrug shoulders bilaterally and keep up against resistance. Neuro: Oriented X 3. No motor deficit. No sensory deficit. Reflexes normal. Moving all extremities. No focal motor deficits. Cranial nerves II-XI intact bilaterally. Facial strength normal. Normal cognition. Speech normal. Gait normal. Strength 5/5 throughout. No pronator drift. No tremor noted. No fasciculations noted. No rigidity noted. Muscle tone normal throughout. No asterixis noted. [id number] test normal. Heel to peterson test normal. Tandem gait normal. Does not sway with eyes open. Romberg test negative. Rapid alternating movement upper extremity normal. Rapid alternating movement lower extremity normal. Hand drop from overhead Misses face. NIHSS score 0. Course Course Course Narrative: 45-year-old female presenting with multiple complaints. No focal neuro deficits are noted. Patient is neuro intact. Normal steady gait. - labs obtained and all within normal limits. UA within normal limits no evidence of UTI. CT scan of brain within normal limits no acute processes noted. Chest x-ray within normal limits no acute processes noted. EKG is sinus bradycardia with ventricular rate of 54 with a normal AR interval normal QRS duration normal QT/QTC interval. No acute ischemic changes are noted. - I have no explanation for all the patient's multiple complaints. I explained this to the patient and I explained to her that she needs to follow up with her primary care provider and I will refer her to a neurologist along with instructions to return if any new or worsening symptoms to follow up with primary care provider as well and to continue taking her medications as prescribed. Patient understands agrees with this plan. Medical Decision Making Medical Records Medical records reviewed: Yes I reviewed the patient's medical records. Lab Data Lab results reviewed: Yes I reviewed the patient's lab results. Result diagrams: 12/16/20 14:26 12/16/20 14:26 Labs: Lab Results 12/16/20 12/16/20 12/16/20 Range/Units 14:26 14:26 14:26 WBC 5.5 (4.8-10.8) X10*3/uL RBC 4.39 (4.20-5.50) X10*6/uL Hgb 13.8 (12.0-16.0) g/dl Hct 41.8 (37-47) % MCV 95.2 (80-98) fL MCH 31.4 (27.0-33.0) pg MCHC 33.0 (31.0-35.0) g/dl RDW 11.8 (11.0-16.0) % Plt Count 186 (160-400) X10*3/uL MPV 10.8 (9.4-12.3) fL Immature Gran % (Auto) 0.2 (0.0-0.4) % Neut % (Auto) 42.7 L (45-73) % Lymph % (Auto) 42.0 H (20-40) % [place] % (Auto) 9.9 (2-11) % Eos % (Auto) 4.5 H (0-4) % Baso % (Auto) 0.7 (0-2) % Lymph # (Auto) 2.3 (1.2-4.9) X10*3/uL [place] # (Auto) 0.6 (0.1-1.2) X10*3/uL Eos # (Auto) 0.3 (0.0-0.4) X10*3/uL Baso # (Auto) 0.0 (0.0-0.2) X10*3/uL Abs Immat Gran (auto) 0.01 (0.00-0.03) X10*3/uL Absolute Neuts (auto) 2.4 (2.0-8.3) X10*3/uL Absolute Nucleated RBC 0.000 (0.0-0.012) X10*3/uL Nucleated RBC % (auto) 0.0 (0.0-0.2) /100WBC PT 13.4 H (10.8-13.0) SEC INR 1.1 (0.9-1.1) Sodium 142 (135-145) mmol/L Potassium 4.2 (3.3-5.1) mmol/L Chloride 108 (96-108) mmol/L Carbon Dioxide 27 (22-29) mmol/L Anion Gap 11 L (12-20) BUN 15 (9-16) mg/dL Creatinine 0.71 (0.5-1.4) mg/dL Estim Creat Clear Calc 106.3 Estimated GFR > 60 Random Glucose 79 (60-115) mg/dL Calcium 9.2 (8.4-10.2) mg/dL Magnesium 2.3 (1.6-2.6) mg/dL Total Bilirubin 0.8 (0.0-1.0) mg/dL Direct Bilirubin 0.3 (0.0-0.5) mg/dL AST 41 H (5-31) U/L ALT 42 H (0-31) U/L Alkaline Phosphatase 83 (39-117) U/L Troponin I High Sens (<3.5-17.0) ng/L C-Reactive Protein 0.06 (< or = 0.50) mg/dL Total Protein 7.0 (6.5-8.0) g/dL Albumin 4.1 (3.5-5.0) g/dL TSH (0.32-4.0) uIU/mL Beta HCG, Quant mIU/mL Urine Color Urine Appearance Urine pH (5.0-8.0) Ur Specific [place] (1.005-1.025) Urine Protein (NEG-TRACE) MG/DL Urine Glucose (UA) (NEG) MG/DL Urine Ketones (NEG) MG/DL Urine Blood (NEG) Urine Nitrite (NEG) Ur Leukocyte Esterase (NEG) Urine RBC (0) /HPF Urine WBC (0-4) /HPF Ur Squamous Epith Cells /LPF Urine Bacteria /LPF Urine Mucus /LPF 12/16/20 12/16/20 12/16/20 Range/Units 14:26 14:26 14:26 WBC (4.8-10.8) X10*3/uL RBC (4.20-5.50) X10*6/uL Hgb (12.0-16.0) g/dl Hct (37-47) % MCV (80-98) fL MCH (27.0-33.0) pg MCHC (31.0-35.0) g/dl RDW (11.0-16.0) % Plt Count (160-400) X10*3/uL MPV (9.4-12.3) fL Immature Gran % (Auto) (0.0-0.4) % Neut % (Auto) (45-73) % Lymph % (Auto) (20-40) % [place] % (Auto) (2-11) % Eos % (Auto) (0-4) % Baso % (Auto) (0-2) % Lymph # (Auto) (1.2-4.9) X10*3/uL [place] # (Auto) (0.1-1.2) X10*3/uL Eos # (Auto) (0.0-0.4) X10*3/uL Baso # (Auto) (0.0-0.2) X10*3/uL Abs Immat Gran (auto) (0.00-0.03) X10*3/uL Absolute Neuts (auto) (2.0-8.3) X10*3/uL Absolute Nucleated RBC (0.0-0.012) X10*3/uL Nucleated RBC % (auto) (0.0-0.2) /100WBC PT (10.8-13.0) SEC INR (0.9-1.1) Sodium (135-145) mmol/L Potassium (3.3-5.1) mmol/L Chloride (96-108) mmol/L Carbon Dioxide (22-29) mmol/L Anion Gap (12-20) BUN (9-16) mg/dL Creatinine (0.5-1.4) mg/dL Estim Creat Clear Calc Estimated GFR Random Glucose (60-115) mg/dL Calcium (8.4-10.2) mg/dL Magnesium (1.6-2.6) mg/dL Total Bilirubin (0.0-1.0) mg/dL Direct Bilirubin (0.0-0.5) mg/dL AST (5-31) U/L ALT (0-31) U/L Alkaline Phosphatase (39-117) U/L Troponin I High Sens < 3.5 (<3.5-17.0) ng/L C-Reactive Protein (< or = 0.50) mg/dL Total Protein (6.5-8.0) g/dL Albumin (3.5-5.0) g/dL TSH 0.83 (0.32-4.0) uIU/mL Beta HCG, Quant < 2 mIU/mL Urine Color YELLOW Urine Appearance CLOUDY Urine pH 5.5 (5.0-8.0) Ur Specific [place] >= 1.030 H (1.005-1.025) Urine Protein NEG (NEG-TRACE) MG/DL Urine Glucose (UA) NEG (NEG) MG/DL Urine Ketones 5 (NEG) MG/DL Urine Blood NEG (NEG) Urine Nitrite NEG (NEG) Ur Leukocyte Esterase TRACE H (NEG) Urine RBC 0-2 (0) /HPF Urine WBC 1-4 (0-4) /HPF Ur Squamous Epith Cells 2+ /LPF Urine Bacteria TRACE /LPF Urine Mucus 1+ /LPF Imaging Data Chest x-ray: Attestation: I personally reviewed and interpreted this imaging study as follows: Radiologist's impression: FINDINGS: Spinal stimulator wiring noted. Partially visualized cervical hardware. The lungs are well expanded. There is no focal consolidation, edema, or effusion. No pneumothorax. The cardiomediastinal silhouette is within normal limits. No acute osseous abnormality. XR/XR chest 2V IMPRESSION: Clear lungs. CT scan - head: Attestation: I personally reviewed and interpreted this imaging study as follows: Radiologist's impression: FINDINGS: There is no evidence of acute intracranial hemorrhage or territorial infarction. No abnormal mass effect or midline shift is seen. [place] to white matter differentiation is well preserved. No extra-axial fluid collections are identified. No hydrocephalus. No significant volume loss. There is no abnormal attenuation within the brain parenchyma. The osseous structures and soft tissues are normal. Moderate opacification of the right maxillary sinus with air-fluid level and aerosolized secretions. Minimal opacification of the right sphenoid sinus. The mastoid air cells and visualized portions of the paranasal sinuses are otherwise well aerated. CT/CT head/brain wo con IMPRESSION: No acute intracranial pathology. Paranasal opacification as above. ECG Data Attestation: I personally reviewed and interpreted this ECG as follows: Interpretation: EKG is sinus bradycardia with ventricular rate of 54 with a normal AR interval normal QRS duration normal QT/QTC interval. No acute ischemic changes are noted. 08/18/2020 Discharge Plan Discharge Clinical Impression: Tingling in extremities, Frequent headaches, Imbalance Patient Disposition: Home, Self-Care Instructions: Paresthesia (ED), General Headache (ED) Prescriptions: No Action cholecalciferol (vitamin D3) 50 mcg (2,000 unit) capsule 50 mcg PO DAILY Qty: 30 RF: 5 oxycodone 10 mg tablet 10 mg PO BID PRN (Reason: pain) RF: 0 trazodone 100 mg tablet 150 mg PO BEDTIME PRNRF: 0 levothyroxine 75 mcg tablet 75 mcg PO DAILY RF: 0 buspirone 5 mg tablet 5 mg PO BID RF: 0 clonazepam 1 mg tablet 1 mg PO BID RF: 0 Remicade 100 mg recon soln IV Q8W RF: 0 Hold Instructions: Resume on 09/22/20. Discuss timing of first dose with Dr Craven calcium citrate 1,000 mg tablet 1,000 mg PO DAILY RF: 0 Bariatric Multivitamins 45 mg iron- 800 mcg-120 mcg capsule PO DAILY RF: 0 Referrals: Krystina Boswell MD [Physician] - 1 week Print Language: Spanish
[2020-12-16 16:02] LABS: Erythrocyte Sedimentation Rate 6 MM/HR (0-20)
[2020-12-16 17:35] LABS: UPreg QC Valid YES; Urine Pregnancy NEGATIVE (NEGATIVE)
== END 2020-12-16 16:03 | disposition home or self-care (01) ==
PROVIDERS: Physician Assistant Medical; Emergency Provider Emergency Medicine Emergency Medical Services; PCP Internal Medicine
DX: R20.2 Paresthesia of skin (principal); R51.9 Headache, unspecified; R26.89 Other abnormalities of gait and mobility; E11.9 Type 2 diabetes mellitus without complications
CPT/HCPCS: 36415; 70450; 71046; 80048; 80076; 81001; 81003; 81025; 83735; 84443; 84484; 84702; 85025; 85610; 85652; 86140; 87086; 93005; 99212; 99284

== ENCOUNTER → 2021-02-23 13:09 | Outpatient (BNVA) | payer OTHER, SELFPAY | PROVIDERS: PCP Internal Medicine; Referring Provider Internal Medicine; Visit Provider Surgery | DX: E55.9 Vitamin D deficiency, unspecified (principal); Z68.31 Body mass index [BMI] 31.0-31.9, adult | CPT/HCPCS: 99212 ==

== ENCOUNTER → 2021-04-22 10:56 | Outpatient (BNVA) | payer OTHER, SELFPAY | PROVIDERS: PCP Internal Medicine; Visit Provider Dietitian, Registered | DX: E66.9 Obesity, unspecified (principal); Z68.30 Body mass index [BMI] 30.0-30.9, adult | CPT/HCPCS: 97803 ==

== ENCOUNTER → 2021-05-26 08:53 | Outpatient (BNVA) | payer OTHER, SELFPAY | PROVIDERS: PCP Internal Medicine; Visit Provider Surgery | DX: E66.9 Obesity, unspecified (principal); Z90.3 Acquired absence of stomach [part of]; Z68.30 Body mass index [BMI] 30.0-30.9, adult | CPT/HCPCS: 99212 ==

== ENCOUNTER → 2021-08-16 15:44 | Outpatient (BNVA) | payer OTHER, SELFPAY | PROVIDERS: PCP Internal Medicine; Visit Provider Physician Assistant Surgical | DX: E66.9 Obesity, unspecified (principal); E50.9 Vitamin A deficiency, unspecified; K91.2 Postsurgical malabsorption, not elsewhere classified; L98.7 Excessive and redundant skin and subcutaneous tissue; Z90.3 Acquired absence of stomach [part of]; Z68.30 Body mass index [BMI] 30.0-30.9, adult | CPT/HCPCS: 99212 ==

== ENCOUNTER → 2021-09-07 08:06 | Outpatient (BNVA) | payer OTHER, SELFPAY | PROVIDERS: PCP Internal Medicine; Visit Provider Dietitian, Registered | DX: E66.9 Obesity, unspecified (principal); Z68.30 Body mass index [BMI] 30.0-30.9, adult | CPT/HCPCS: 97803 ==

== ENCOUNTER 2021-09-26 15:39 | Outpatient (REF) | payer OTHER, SELFPAY ==
[2021-09-26 16:02] LABS: MANUAL DIFF FLAG NO
[2021-09-26 16:21] LABS: Basophils Percent Auto 0.3 % (0-2); Eosinophils Absolute Auto 0.3 X10*3/uL (0.0-0.4); Eosinophils Percent Auto 4.4 % (0-4); Hematocrit 41.9 % (37.0-47.0); Hemoglobin 13.7 g/dl (12.0-16.0); Imm Gran Abs Auto 0.02 X10*3/uL (0.00-0.03); Imm Gran Pct Auto 0.3 % (0.0-0.4); Lymphocytes Percent Auto 32.6 % (20-40); Mean Corpuscular HGB Conc 32.7 g/dl (31.0-35.0); Mean Corpuscular Hemoglobin 31.9 pg (27.0-33.0); Mean Corpuscular Volume 97.4 fL (80.0-98.0); Mean Platelet Volume 10.2 fL (9.4-12.3); Monocytes Absolute Auto 0.6 X10*3/uL (0.1-1.2); Monocytes Percent Auto 9.7 % (2-11); Neutrophils Absolute Auto 3.2 x10*3/uL (2.0-8.3); Neutrophils Percent Auto 52.7 % (45-73); Platelet Count 222 X10*3/uL (160-400); Red Cell Distribution Width 11.9 % (11.0-16.0); White Blood Count 6.2 X10*3/uL (4.8-10.8)
[2021-09-26 16:29] LABS: Estimated Average Glucose 85 mg/dL; Hemoglobin A1c % 4.6 %
[2021-09-26 16:43] LABS: Anion Gap 10 (12-20); Blood Urea Nitrogen 17 mg/dL (9-16); C Reactive Protein 0.12 mg/dL (< or = 0.50); Calcium 9.6 mg/dL (8.4-10.2); Carbon Dioxide 26 mmol/L (22-29); Chloride 106 mmol/L (96-108); Cholesterol 213 mg/dL; Estimated Glomerular Filt Rate > 60; Glucose Random 84 mg/dL (60-115); HDL Cholesterol 65 mg/dL; Iron 96 mcg/dL (30-160); LDL Cholesterol Calculated 129 mg/dl; Percent Iron Saturation 27 % (15-50); Sodium 138 mmol/L (135-145); Total Iron Binding Capacity 355 mcg/dL (228-428); Triglycerides 96 mg/dL; Unsaturated Iron Binding 259 ug/dL
[2021-09-26 17:06] LABS: Ferritin 149 ng/mL (10-250); TSH reflex Free T4 0.86 uIU/mL (0.32-4.0); Vitamin D 25-OH Total 18.2 ng/mL (>30)
[2021-09-26 17:16] LABS: Folate 18.3 ng/mL (> or = 4.0); Vitamin B12 888 pg/mL (200-900)
[2021-09-30 03:07] LABS: Zinc 69 mcg/dL (60-130)
[2021-09-30 10:12] LABS: Vitamin B1 24 nmol/L (8-30)
[2021-09-30 12:47] LABS: Vitamin A 33 mcg/dL (38-98)
== END 2021-09-26 15:40 | disposition home or self-care (01) ==
LOC: HO.LAB 15:39
PROVIDERS: Visit Provider Physician Assistant Surgical
DX: E50.9 Vitamin A deficiency, unspecified (principal); K91.2 Postsurgical malabsorption, not elsewhere classified; E66.9 Obesity, unspecified; Z68.30 Body mass index [BMI] 30.0-30.9, adult; Z90.3 Acquired absence of stomach [part of]
CPT/HCPCS: 36415; 80048; 80061; 82306; 82607; 82728; 82746; 83036; 83540; 84425; 84443; 84590; 84630; 85025; 86140

== ENCOUNTER → 2021-09-29 08:17 | Outpatient (BNVA) | payer OTHER, SELFPAY | PROVIDERS: PCP Internal Medicine; Visit Provider Physician Assistant Surgical | DX: Z68.30 Body mass index [BMI] 30.0-30.9, adult (principal); E66.9 Obesity, unspecified; E50.9 Vitamin A deficiency, unspecified; K91.2 Postsurgical malabsorption, not elsewhere classified; Z90.3 Acquired absence of stomach [part of] ==

== ENCOUNTER → 2021-12-08 08:44 | Outpatient (BNVA) | payer OTHER, SELFPAY | PROVIDERS: PCP Internal Medicine; Visit Provider Physician Assistant Surgical | DX: E66.3 Overweight (principal); L98.7 Excessive and redundant skin and subcutaneous tissue; Z68.29 Body mass index [BMI] 29.0-29.9, adult | CPT/HCPCS: 99212 ==

== ENCOUNTER → 2022-01-24 09:50 | Outpatient (BNVA) | payer OTHER, SELFPAY | PROVIDERS: PCP Internal Medicine; Referring Provider Internal Medicine; Visit Provider Physician Assistant Surgical | DX: E66.3 Overweight (principal); Z68.29 Body mass index [BMI] 29.0-29.9, adult | CPT/HCPCS: 99212 ==

== ENCOUNTER → 2022-04-20 15:31 | Outpatient (BNVA) | payer OTHER, SELFPAY | PROVIDERS: PCP Internal Medicine; Referring Provider Physician Assistant Surgical; Visit Provider Physician Assistant Surgical | DX: E66.3 Overweight (principal); L98.7 Excessive and redundant skin and subcutaneous tissue; Z90.3 Acquired absence of stomach [part of] | CPT/HCPCS: 99212 ==

== ENCOUNTER → 2022-06-29 09:23 | Outpatient (BNVA) | payer OTHER, SELFPAY | PROVIDERS: PCP Internal Medicine; Visit Provider Physician Assistant Surgical | DX: E66.3 Overweight (principal); L98.7 Excessive and redundant skin and subcutaneous tissue; Z90.3 Acquired absence of stomach [part of] | CPT/HCPCS: 99212 ==

== ENCOUNTER → 2022-08-29 08:55 | Outpatient (BNVA) | payer OTHER, SELFPAY | PROVIDERS: PCP Internal Medicine; Visit Provider Physician Assistant Surgical | DX: E66.3 Overweight (principal); L98.7 Excessive and redundant skin and subcutaneous tissue; Z90.3 Acquired absence of stomach [part of]; Z68.29 Body mass index [BMI] 29.0-29.9, adult | CPT/HCPCS: 99212 ==

== ENCOUNTER 2022-09-13 16:04 | Outpatient (REF) | payer OTHER, SELFPAY ==
[2022-09-13 17:17] LABS: Estimated Average Glucose 82 mg/dL; Hemoglobin A1c % 4.5 %
[2022-09-13 17:44] LABS: Alanine Aminotransferase 28 U/L (0-31); Albumin Level 3.7 g/dL (3.5-5.0); Alkaline Phosphatase 58 U/L (39-117); Anion Gap 11 (12-20); Aspartate Amino Transferase 30 U/L (5-31); Bilirubin Total 0.3 mg/dL (0.0-1.0); Blood Urea Nitrogen 21 mg/dL (9-16); Calcium 9.2 mg/dL (8.4-10.2); Carbon Dioxide 24 mmol/L (22-29); Chloride 107 mmol/L (96-108); Cholesterol 163 mg/dL; Estimated Glomerular Filt Rate > 60; Ferritin 32 ng/mL (10-250); Glucose Random 88 mg/dL (60-115); HDL Cholesterol 53 mg/dL; Insulin 12 uU/mL (2-29); LDL Cholesterol Calculated 93 mg/dl; Sodium 138 mmol/L (135-145); Total Protein 6.5 g/dL (6.5-8.0); Triglycerides 87 mg/dL; Vitamin D 25-OH Total 20.9 ng/mL (>30)
[2022-09-14 17:53] LABS: Calcium (PTHI) 9.3 mg/dL (8.6-10.2); PTHI 29 pg/mL (16-77)
[2022-09-16 10:38] LABS: Vitamin B1 24 nmol/L (8-30)
[2022-09-16 19:24] LABS: Zinc 56 mcg/dL (60-130)
[2022-09-18 17:17] LABS: Vitamin A 35 mcg/dL (38-98)
== END 2022-09-13 16:05 | disposition home or self-care (01) ==
LOC: HO.LAB 16:04
PROVIDERS: Visit Provider Physician Assistant Surgical
DX: Z90.3 Acquired absence of stomach [part of] (principal)
CPT/HCPCS: 36415; 80053; 80061; 82306; 82728; 83036; 83525; 83970; 84425; 84439; 84443; 84590; 84630

== ENCOUNTER → 2022-10-31 10:44 | Outpatient (BNVA) | payer OTHER, SELFPAY | PROVIDERS: PCP Internal Medicine; Visit Provider Physician Assistant Surgical | DX: E66.3 Overweight (principal); L98.7 Excessive and redundant skin and subcutaneous tissue; Z90.3 Acquired absence of stomach [part of]; Z68.28 Body mass index [BMI] 28.0-28.9, adult | CPT/HCPCS: 99212 ==

== ENCOUNTER → 2022-11-24 15:44 | Outpatient (BNVA) | payer OTHER, SELFPAY | PROVIDERS: PCP Internal Medicine; Visit Provider Physician Assistant ==

== ENCOUNTER → 2022-11-27 09:57 | Outpatient (BNVA) | payer OTHER, SELFPAY | PROVIDERS: PCP Internal Medicine; Visit Provider Surgery | DX: L03.90 Cellulitis, unspecified (principal); K91.2 Postsurgical malabsorption, not elsewhere classified; Z90.3 Acquired absence of stomach [part of] ==

== ENCOUNTER → 2022-11-29 15:21 | Outpatient (BNVA) | payer OTHER, SELFPAY | PROVIDERS: PCP Internal Medicine; Visit Provider Physician Assistant Surgical ==

== ENCOUNTER 2022-12-05 09:03 | Outpatient (REF) | payer OTHER, SELFPAY ==
[2022-12-05 09:30] LABS: MANUAL DIFF FLAG NO
[2022-12-05 09:38] LABS: Basophils Absolute Auto 0.1 X10*3/uL (0.0-0.2); Basophils Percent Auto 0.9 % (0-2); Eosinophils Absolute Auto 0.3 X10*3/uL (0.0-0.4); Eosinophils Percent Auto 6.2 % (0-4); Hematocrit 41.8 % (37.0-47.0); Lymphocytes Absolute Auto 2.2 X10*3/uL (1.2-4.9); Lymphocytes Percent Auto 40.7 % (20-40); Mean Corpuscular HGB Conc 33.5 g/dl (31.0-35.0); Mean Corpuscular Hemoglobin 31.9 pg (27.0-33.0); Mean Corpuscular Volume 95.2 fL (80.0-98.0); Monocytes Absolute Auto 0.5 X10*3/uL (0.1-1.2); Monocytes Percent Auto 9.6 % (2-11); Neutrophils Absolute Auto 2.3 x10*3/uL (2.0-8.3); Neutrophils Percent Auto 42.6 % (45-73); Platelet Count 188 X10*3/uL (160-400); Red Blood Count 4.39 X10*6/uL (4.20-5.50); Red Cell Distribution Width 11.9 % (11.0-16.0); White Blood Count 5.5 X10*3/uL (4.8-10.8)
[2022-12-05 09:43] LABS: INTERNATIONAL NORM RATIO 1.1 (0.9-1.1); Prothrombin Time 12.5 SEC (10.0-13.1)
[2022-12-05 10:34] LABS: Alanine Aminotransferase 20 U/L (0-31); Albumin Level 3.5 g/dL (3.5-5.0); Alkaline Phosphatase 58 U/L (39-117); Anion Gap 9 (12-20); Aspartate Amino Transferase 25 U/L (5-31); Bilirubin Total 0.9 mg/dL (0.0-1.0); Blood Urea Nitrogen 15 mg/dL (9-16); Carbon Dioxide 22 mmol/L (22-29); Chloride 112 mmol/L (96-108); Estimated Glomerular Filt Rate > 60; Glucose Random 78 mg/dL (60-115); Potassium 4.4 mmol/L (3.3-5.1); Sodium 139 mmol/L (135-145); Total Protein 6.5 g/dL (6.5-8.0)
== END 2022-12-05 09:04 | disposition home or self-care (01) ==
LOC: HO.LAB 09:03
PROVIDERS: PCP Internal Medicine; Visit Provider Surgery
DX: K91.2 Postsurgical malabsorption, not elsewhere classified (principal); Z90.3 Acquired absence of stomach [part of]
CPT/HCPCS: 36415; 80053; 85025; 85610; 85730; 86850; 86900; 86901

== ENCOUNTER 2022-12-12 08:04 | Day surgery (SDC) | payer OTHER, SELFPAY ==
[2022-11-30 12:33] VITALS: BMI 28.8
--- NOTE | 2022-12-08 18:28 | MHC.SHP ---
Pre-Procedural Eval Section A Date of Service: 12/08/22 The patient is an INPATIENT: No The History & Physical has been completed within 30 days and I have reviewed it.: Yes Section B Chief Complaint: Excessive and redundant skin and subcutaneous tiss Relevant Family History (Specify if Yes): No Relevant Social History: None Present Medications: None Medical History: No relevant PMH History of Previous Operations: Relevant previous surgery/procedure and date(s) (laparoscopic sleeve gastrectomy) Allergies: Allergies Allergy/AdvReac Type Severity Reaction Status Date / Time codeine [CODEINE] Allergy Intermediate HIVES, rash Verified 11/27/22 14:41 hydrocodone [From VICODIN] Allergy Intermediate HIVES Verified 11/27/22 14:41 shellfish derived Allergy Intermediate swollen Verified 11/27/22 14:41 Review of Systems Sugical H&P ROS: Negative: Constitution, Cardiovascular, Respiratory, Neurological, Psychiatric, Hem-Onc, Allergic/Immunologic, Gastrointestinal, Genitourinary, Musculoskeletal, Integumentary, Endocrine and Eyes/Ears/Nose/Throat Exam Surgical H&P Exam: Normal: HEENT, Normal: Heart, Normal: Lungs, Normal: Extremities, Normal: Abdomen, Normal: Skin and Normal: Neurological Plan Diagnosis/Plan: Unchanged I have reviewed the history and physical and performed a pertinent physical examination on my patient. No changes have occurred unless specified. Time Spent With Patient Time: Total time managing care of this patient today ____ minutes.
--- NOTE | 2022-12-11 10:46 | HO.ANESPROP2 ---
Documented by User: Laura Dawn NP 12/11/22 10:57 HPI - Anesthesia Eval Consult details Narrative: 47yo F for Panniculectomy s/p gastric sleeve 2020 with GA-ETT 7 s/p c-spine fusion spinal stim in situ PMFSH Active Problems Active Problems: All Active Problems (Updated 11/30/22 @ 12:40 by Radha Alvarado, RN) Preoperative examination (Acute) Body mass index (BMI) of 36.0 to 36.9 in adult (Acute) BMI 33.0-33.9,adult (Acute) Obesity (Acute) Tingling in extremities (Acute) Vitamin D deficiency (Acute) Vitamin A deficiency (Acute) BMI 31.0-31.9,adult (Acute) BMI 30.0-30.9,adult (Acute) Excess skin (Acute) Overweight (Acute) Intestinal malabsorption following gastrectomy (Acute) History of sleeve gastrectomy (Acute) Past Medical History Medical History Anxiety Chronic back pain Crohn's disease DDD (degenerative disc disease) Depression Hypothyroidism Intestinal malabsorption following gastrectomy Lab test negative for COVID-19 virus Obesity (BMI 30-39.9) Obstructive sleep apnea Shortness of breath Type II diabetes mellitus Wears partial dentures Family History Family History Father No problems noted. Mother Diabetes mellitus Brother No problems noted. Brother No problems noted. Brother No problems noted. Brother No problems noted. Brother No problems noted. Sister Type I diabetes mellitus Sister No problems noted. Son No problems noted. Son No problems noted. Son No problems noted. Daughter No problems noted. Daughter No problems noted. Surgical History Surgical History History of Achilles tendon repair History of bilateral tubal ligation History of section History of fusion of cervical spine History of laparoscopic cholecystectomy History of sleeve gastrectomy Other specified postprocedural states S/P placement of nerve stimulator Social History Social History (Updated 11/30/22 @ 12:41 by Radha Alvaardo, RN) Household Members: Significant Other Housing: House Are you a primary resident caregiver to a significant other at home: No Do you presently have visiting nurse or other home services: No Alcohol intake: never Patient Tobacco Use Status: Never used Tobacco Use of substances other than those prescribed or required for medical reasons: No Have you been hit, kicked, punched, or otherwise hurt by someone within the past year? If so, by whom?: No Are you DNR?: No Advance Directives: Yes Advance Directives Information Provided: No Advance Directives on File: Yes Advance Directives Date on File: 08/15/16 Recently lost weight without trying: No Nutrition Risks: Gastrointestinal Malabsorption Patient : No FDLMP: 11/06/2022 : No Poor oral hygiene: No service: No Current occupational status: employed Meds Allergies Allergy/AdvReac Type Severity Reaction Status Date / Time codeine [CODEINE] Allergy Intermediate HIVES, rash Verified 12/12/22 08:36 hydrocodone [From VICODIN] Allergy Intermediate HIVES Verified 12/12/22 08:36 shellfish derived Allergy Intermediate swollen Verified 12/12/22 08:36 Home Medications Medication Instructions Recorded Confirmed Last Taken Type buspirone 5 mg tablet 5 mg PO BID 07/08/20 11/30/22 Unknown History clonazepam 1 mg tablet 1 mg PO BID 07/08/20 11/30/22 Unknown History infliximab 100 mg intravenous IV Q8W 07/08/20 11/27/22 Unknown History solution (Remicade) levothyroxine 75 mcg tablet 75 mcg PO DAILY 07/08/20 11/30/22 Unknown History oxycodone 10 mg tablet 10 mg PO BID PRN pain 08/25/20 11/30/22 Unknown History zhlkhezf-qnjxrakp-mcey 45 mg-folic 1 cap PO DAILY 11/18/20 11/27/22 Unknown History acid 800 mcg-vit K 120 mcg capsule (Bariatric Multivitamins) clotrimazole 1 % topical cream 1 appl topical BID PRN Rash 11/30/22 11/30/22 Unknown History (Antifungal (clotrimazole)) trazodone 100 mg tablet 1 tab PO BEDTIME 11/30/22 11/30/22 Unknown History Exam Exam Date and Time: December 11, 2022 1046 Height,Weight and Vital Signs: Height 5 ft 4 in Weight 76.204 kg Pertinent Lab Results Pertinent Lab Results: Laboratory Tests 12/05/22 09:17 Blood Type A Positive Antibody Screen NEGATIVE Laboratory Tests 12/05/22 12/05/22 09:28 09:28 WBC 5.5 Hgb 14.0 Hct 41.8 Plt Count 188 Sodium 139 Potassium 4.4 Chloride 112 H Carbon Dioxide 22 BUN 15 Creatinine 0.68 Assessment and Plan Assessment Anesthesia Assessment: Chart Reviewed Documented by User: Drake Carl MD 12/12/22 16:45 [facility] Past Medical History Medical History Anxiety Chronic back pain Crohn's disease DDD (degenerative disc disease) Depression Hypothyroidism Intestinal malabsorption following gastrectomy Lab test negative for COVID-19 virus Obesity (BMI 30-39.9) Obstructive sleep apnea Shortness of breath Type II diabetes mellitus Wears partial dentures Functional capacity: independent ambulation Family History Family History Father No problems noted. Mother Diabetes mellitus Brother No problems noted. Brother No problems noted. Brother No problems noted. Brother No problems noted. Brother No problems noted. Sister Type I diabetes mellitus Sister No problems noted. Son No problems noted. Son No problems noted. Son No problems noted. Daughter No problems noted. Daughter No problems noted. Family history of problems with anesthesia: No Surgical History Surgical History History of Achilles tendon repair History of bilateral tubal ligation History of section History of fusion of cervical spine History of laparoscopic cholecystectomy History of sleeve gastrectomy Other specified postprocedural states S/P placement of nerve stimulator History of Problems with Anesthesia: No Social History Social History (Updated 11/30/22 @ 12:41 by Radha Alvarado RN) Household Members: Significant Other Housing: House Are you a primary resident caregiver to a significant other at home: No Do you presently have visiting nurse or other home services: No Alcohol intake: never Patient Tobacco Use Status: Never used Tobacco Use of substances other than those prescribed or required for medical reasons: No Have you been hit, kicked, punched, or otherwise hurt by someone within the past year? If so, by whom?: No Are you DNR?: No Advance Directives: Yes Advance Directives Information Provided: No Advance Directives on File: Yes Advance Directives Date on File: 08/15/16 Recently lost weight without trying: No Nutrition Risks: Gastrointestinal Malabsorption Patient : No FDLMP: 11/06/2022 : No Poor oral hygiene: No service: No Current occupational status: employed Meds Allergies Allergy/AdvReac Type Severity Reaction Status Date / Time codeine [CODEINE] Allergy Intermediate HIVES, rash Verified 12/12/22 08:36 hydrocodone [From VICODIN] Allergy Intermediate HIVES Verified 12/12/22 08:36 shellfish derived Allergy Intermediate swollen Verified 12/12/22 08:36 Home Medications Medication Instructions Recorded Confirmed Last Taken Type buspirone 5 mg tablet 5 mg PO BID 07/08/20 11/30/22 Unknown History clonazepam 1 mg tablet 1 mg PO BID 07/08/20 11/30/22 Unknown History infliximab 100 mg intravenous IV Q8W 07/08/20 11/27/22 Unknown History solution (Remicade) levothyroxine 75 mcg tablet 75 mcg PO DAILY 07/08/20 11/30/22 Unknown History oxycodone 10 mg tablet 10 mg PO BID PRN pain 08/25/20 11/30/22 Unknown History aurhaacj-upccqufx-wvpq 45 mg-folic 1 cap PO DAILY 11/18/20 11/27/22 Unknown History acid 800 mcg-vit K 120 mcg capsule (Bariatric Multivitamins) clotrimazole 1 % topical cream 1 appl topical BID PRN Rash 11/30/22 11/30/22 Unknown History (Antifungal (clotrimazole)) trazodone 100 mg tablet 1 tab PO BEDTIME 11/30/22 11/30/22 Unknown History Exam Airway Mallampati Class: III TM Dist: >3cm Neck ROM: Full Partial: Upper Loose/Missing/Broken Teeth: Yes (prtial ) Heart: S1,S2 Lungs: b/l breath sounds Assessment and Plan Assessment Anesthesia Assessment: Anesthesia Plan Discussed Final Anesthetic Review Family History of Problems with Anesthesia: No History of Problems with Anesthesia: No NPO: Yes ASA Class: II Final Preanesthetic Review: Meds/Allgs Chart Reviewed, Consent Obtained/Reviewed and Anes Risks/Benef Reviewed Patient Risk: Intermediate Procedure Risk: Intermediate Assessment/Block/Sedation in SS: Assess/Block/Sedation-SS Anesthetic Plan Anesthetic Plan: GA and Agree w/ Assess. and Plan Disposition: Standard PACU
[2022-12-11 13:08] LABS: IDNOW Serial# 08D9AD1C
[2022-12-11 13:09] LABS: COVID-19 Test Negative (Negative)
[2022-12-12] VITALS (12 sets, daily range): BP systolic 100–115; BP diastolic 54–69; PULSE 50–63; RESP 14–23; TEMP 36.5–36.6; O2SAT 98–100
[2022-12-12] MEDS: Lactated Ringers 1,000 ML 100 ML IVCONT (09:12)
--- NOTE | 2022-12-12 10:26 | P.BOP_ITS ---
Brief Operative Note Date of Service: 12/12/22 Pre-op diagnosis: Excess skin Post-op diagnosis: same Procedure: PROCEDURE: Panniculectomy with umbilical transposition and bilateral subcutaneous fat flaps INDICATION: This a 47 year old female who underwent laparoscopic sleeve gastrectomy on 08/25/2020. She had an excellent result achieving a BMI of 28.9 kg/m2 with a total weight loss of 82.6lbs, or 33% of her TBWL. As a result, she has developed panniculitis which has not resolved despite continuous use of clotrimazole ointment as well as skin irritation. On exam she has extreme skin laxity due to massive weight loss, with the abdominal pannus completely hanging 4cm below the pubis. Panniculectomy was recommended. We discussed the two options for the panniculectomy of using a combined vertical and horizontal incisions or just a horizontal (bikini) incision. It was my recommendation to do only horizontal incision based on her body habitus and skin laxity. The patient agreed with this. Risks and complications were discussed with the patient including bleeding, infection, umbilical loss, flap necrosis, asymmetry, dehiscence, seroma, VTE. The patient understood the risks and was in agreement to proceed with surgery. PROCEDURE: The incisions were appropriately marked at the preop area with the patient standing and laying down. After induction of general anesthesia a Rivero catheter and pneumatic compression devices were placed. The patient was prepped and draped in the usual sterile manner and the incisions were marked again and confirmed. The skin was infiltrated with lidocaine and epinephrine. The #10 blade scalpel was used for the large incisions and the #15 blade scalpel for the umbilicus. Cautery was used to divide the subcutaneous tissues until the fascia was identified. Then I used the Thunderbeat (Olympus) to separate the pannus from the fascia. The inferior incision was made initially and I mobilized the flap for a several centimeters cephalad to the umbilicus. The umbilicus was incised circumferentially and detached from the surrounding tissues all the way to the fascia while its stalk was preserved. With the patient in reflex position I confirmed that the skin flaps were appropriate and would allow for the tissues to come together with reasonable tension. At that point a horizontal incision was made 4 cm above the umbilicus. #10 blade was used for the skin, cautery for the dermis and the Thunderbeat for the remaining tissues. A subcutaneous fat flap was raised from the upper skin flap in order to fill the space under the skin and support the closure of the two flaps. In addition the inferior flap was mobilized caudally for a few centimeters to create a space for the subcutaneous fat flap as well as relieve tension from the closure. A circumferential incision was made at the area where the umbilicus would be re-implanted. The umbilicus was appropriately oriented and was delivered through the defect and was secured in place with a Linwood. No bleeding was noted anywhere. One SUZIE drain was placed from the left corner of the horizontal incision across the wound and was secured in place with a silk suture. A total of 14ml of Zynrelef was applied on top of the fascia and under the lopez bcutaneous fat flaps. The subcutaneous fat flap was secured under the inferior flap with several interrupted 3.0 Monocryl sutures. The two flaps were brought together and were attached at the midline of the horizontal incision with a #3.0 Monocryl suture. At that point the umbilicus was properly oriented and was re-approximated to the skin with 8 interrupted 3.0 Monocryl sutures. In a similar fashion the skin flaps were re-approximated with multiple 3.0 Monocryl sutures. The skin was closed in all incisions and umbilicus with 4.0 Monocryl sutures. Steri-strips, xeroform gauzes and gauzes were used to cover the incisions. An abdominal binder was also placed. The was awaken and was transferred to the recover room in a stable condition. I was present and performed the entire procedure. Ms. German was the customer assistant. Pillo Philippe MD, PhD, FACS Surgeon: Mynor Philippe MD Surgeon: Mynor Philippe MD Anesthesia: GETA, local and other (& 14ml Zynrelef) Was an Rougher Merchant Mill used for this Procedure?: Yes Rougher Merchant Mill: Jeannie German Estimated blood loss (mL): 10 IV fluids (mL): 2,600 Urine output (mL): 0 (No Rivero to record output) Pathology: other (Abdominal pannus) Condition: stable Disposition: PACU
--- NOTE | 2022-12-12 10:43 | P.F2F_ITS ---
Service Date Service Date: 12/12/22 Encounter Date of encounter: 12/12/22 Reasons for Services Signs and symptoms assessed: S/p panniculecotmy with kelsie drain Reason for assisted: wound care (daily dressing changes for 2 weeks.) and other (KELSIE drain care for 2 weeks) Homebound: Leaving the home is medically contraindicated at this time without the asist of a device and/or another person due th the listed conditions above and below. Reason homebound: bedbound/chairbound Certification: Based on the above findings, I certify that this patient is confined to the home and needs intermittent assisted care, physical therapy and/or speech therapy, or continues to need occupational therapy. The patient is under my care, and I have initiated the establishment of the plan of care. The patient will be followed by a physician who will periodically review the plan of care. Time Spent With Patient Time: Total time managing care of this patient today 15 minutes.
[2022-12-12] MEDS: fentaNYL citrate/PF 100 MCG/2 ML VIAL 25 MCG IVPUSH ×2 (16:25→16:35)
== END 2022-12-12 18:19 | disposition home or self-care (01) ==
PROVIDERS: Physician Assistant Surgical; PCP Internal Medicine; Visit Provider Surgery
PROC: 0JB80ZZ Excision of Abdomen Subcutaneous Tissue and Fascia, Open Approach (ICD-10-PCS; CPT 15830; principal; 2022-12-12 10:10)
DX: L98.7 Excessive and redundant skin and subcutaneous tissue (principal); K91.2 Postsurgical malabsorption, not elsewhere classified; Z98.84 Bariatric surgery status; Z90.3 Acquired absence of stomach [part of]; G47.33 Obstructive sleep apnea (adult) (pediatric); F41.1 Generalized anxiety disorder; F32.A Depression, unspecified; K50.90 Crohn's disease, unspecified, without complications; E11.9 Type 2 diabetes mellitus without complications; Z79.4 Long term (current) use of insulin; Z79.899 Other long term (current) drug therapy; Z88.8 Allergy status to other drugs, medicaments and biological substances; Z90.49 Acquired absence of other specified parts of digestive tract; Z98.51 Tubal ligation status; Z20.822 Contact with and (suspected) exposure to COVID-19; K43.0 Incisional hernia with obstruction, without gangrene
CPT/HCPCS: 15830; 15847; 49594; 86850; 86900; 86901; 87635; 88302; 88304; C9088; J0131; J0690; J1170; J2250; J2370; J2405; J3010; J3370

== ENCOUNTER 2022-12-13 12:41 | Outpatient (REF) | payer OTHER, SELFPAY ==
[2022-12-13 13:07] VITALS: BP 118/75; PULSE 65; RESP 16; TEMP 36.6; O2SAT 98
[2022-12-13 13:09] VITALS: BMI 28.8
--- NOTE | 2022-12-13 14:19 | P.BOP_ITS ---
Brief Operative Note Date of Service: 12/13/22 Pre-op diagnosis: Wound dehiscence (umbilicus) Post-op diagnosis: same Procedure: Under local anesthesia with 2% lidocaine and 1% epinephrine the umbilicus was closed in two layers. A dermal layer with 12 interrupted 3.0 Monocryl sutures and the skin was closed with 4.0 Monocryl subcuticlar suture in a running fashion. Steri strips, xeroform gauze and dressings were all replaced. Patient tolerated the procedure well and willbe discharged home. Surgeon: Mynor Philippe MD Anesthesia: local Was an Lidar Analyst used for this Procedure?: No Estimated blood loss (mL): 0 IV fluids (mL): 0 Urine output (mL): 0 Pathology: none sent Condition: stable Disposition: same day
[2022-12-13 14:20] VITALS: BP 130/62; PULSE 65; RESP 16; O2SAT 100
== END 2022-12-13 12:42 | disposition home or self-care (01) ==
LOC: HO.MS 12:41
PROVIDERS: PCP Internal Medicine; Visit Provider Surgery
PROC: (CPT 17999; principal; 2022-12-13 13:00)
DX: T81.31XA Disruption of external operation (surgical) wound, not elsewhere classified, initial encounter (principal); Y83.8 Other surgical procedures as the cause of abnormal reaction of the patient, or of later complication, without mention of misadventure at the time of the procedure; Y92.9 Unspecified place or not applicable
CPT/HCPCS: 17999

== ENCOUNTER → 2022-12-15 08:57 | Outpatient (BNVA) | payer OTHER, SELFPAY | PROVIDERS: PCP Internal Medicine; Visit Provider Physician Assistant Surgical | DX: Z98.890 Other specified postprocedural states (principal) | CPT/HCPCS: 99212 ==

== ENCOUNTER → 2022-12-22 10:54 | Outpatient (BNVA) | payer OTHER, SELFPAY | PROVIDERS: PCP Internal Medicine; Visit Provider Physician Assistant Surgical | DX: Z48.89 Encounter for other specified surgical aftercare (principal) | CPT/HCPCS: 99212 ==

== ENCOUNTER → 2022-12-29 09:27 | Outpatient (BNVA) | payer OTHER, SELFPAY | PROVIDERS: PCP Internal Medicine; Visit Provider Physician Assistant Surgical | DX: Z48.89 Encounter for other specified surgical aftercare (principal) | CPT/HCPCS: 99212 ==

== ENCOUNTER → 2023-01-05 11:30 | Outpatient (BNVA) | payer OTHER, SELFPAY | PROVIDERS: PCP Internal Medicine; Visit Provider Physician Assistant Surgical | DX: R50.9 Fever, unspecified (principal); R10.32 Left lower quadrant pain; E66.9 Obesity, unspecified; K90.49 Malabsorption due to intolerance, not elsewhere classified; Z68.28 Body mass index [BMI] 28.0-28.9, adult; Z98.890 Other specified postprocedural states; Z90.49 Acquired absence of other specified parts of digestive tract; Z90.3 Acquired absence of stomach [part of]; Z79.891 Long term (current) use of opiate analgesic; Z79.899 Other long term (current) drug therapy | CPT/HCPCS: 99212 ==

== ENCOUNTER 2023-01-05 12:56 | Outpatient (REF) | payer OTHER, SELFPAY ==
--- NOTE | ~2023-01-05 | CT_ITS ---
EXAMINATION: CT ABDOMEN AND PELVIS WITHOUT CONTRAST CLINICAL INFORMATION: Fever COMPARISON: Previous CT of the abdomen and pelvis October 2017 TECHNIQUE: Multidetector volumetric imaging was performed from the superior aspect of the liver through the pubic symphysis. Sagittal and coronal reformatted images were obtained on the technologist's workstation. This CT examination was performed using dose optimization techniques as appropriate, variously including the following: *Automated exposure control *Adjustment of mA and/or kV according to patient size (this includes techniques or standardized protocols for targeted exams where dose is matched to indication/reason for exam; i.e. extremities or head) *Use of iterative reconstruction technique DLP: 499 mGy-cm FINDINGS: LUNG BASES: The visualized lung bases are unremarkable. LIVER, GALLBLADDER, AND BILIARY TREE: The liver is normal in size, shape, and attenuation. No focal hepatic lesion or biliary ductal dilatation is present. The gallbladder has been removed. PANCREAS: Unremarkable. SPLEEN: Unremarkable. ADRENAL GLANDS: Unremarkable. KIDNEYS AND URETERS: The kidneys are normal in size, shape, and attenuation. No hydronephrosis, hydroureter, or calculi seen. No perinephric stranding. BLADDER: Not optimally distended but appears unremarkable. GASTROINTESTINAL TRACT: The small and large bowel are unremarkable. The appendix is unremarkable. Postsurgical changes following gastric sleeve. ABDOMINAL WALL: There is a drain adjacent to the lower anterior abdominal wall. No appreciable fluid collection. There is diffuse skin thickening and stranding of the subcutaneous fat of the lower anterior abdominal wall. There are postsurgical changes to the anterior abdominal wall. No hernia. LYMPH NODES: Normal. VASCULAR: Unremarkable. PELVIC VISCERA: Unremarkable. OSSEOUS STRUCTURES: 2 leads in the lower thoracic spinal canal. Mild CT/CT abdomen pelvis wo IV con degenerative changes of the spine. IMPRESSION: Surgical drain adjacent to the lower anterior abdominal wall. Skin thickening and stranding of the subcutaneous fat. No focal fluid collection or hernia. Fleischner guidelines were followed.
[2023-01-05 13:27] LABS: MANUAL DIFF FLAG NO
[2023-01-05 13:58] LABS: Basophils Absolute Auto 0.1 X10*3/uL (0.0-0.2); Basophils Percent Auto 0.6 % (0-2); Eosinophils Absolute Auto 0.5 X10*3/uL (0.0-0.4); Eosinophils Percent Auto 5.4 % (0-4); Hematocrit 36.9 % (37.0-47.0); Hemoglobin 12.2 g/dl (12.0-16.0); Imm Gran Abs Auto 0.03 X10*3/uL (0.00-0.03); Imm Gran Pct Auto 0.3 % (0.0-0.4); Lymphocytes Absolute Auto 2.4 X10*3/uL (1.2-4.9); Mean Corpuscular HGB Conc 33.1 g/dl (31.0-35.0); Mean Corpuscular Hemoglobin 31.4 pg (27.0-33.0); Mean Corpuscular Volume 95.1 fL (80.0-98.0); Mean Platelet Volume 10.2 fL (9.4-12.3); Monocytes Absolute Auto 0.9 X10*3/uL (0.1-1.2); Monocytes Percent Auto 10.5 % (2-11); Neutrophils Absolute Auto 4.8 x10*3/uL (2.0-8.3); Neutrophils Percent Auto 55.2 % (45-73); Platelet Count 222 X10*3/uL (160-400); Red Blood Count 3.88 X10*6/uL (4.20-5.50); Red Cell Distribution Width 11.9 % (11.0-16.0); White Blood Count 8.7 X10*3/uL (4.8-10.8)
[2023-01-05 14:08] LABS: Anion Gap 10 (12-20); Blood Urea Nitrogen 16 mg/dL (9-16); Calcium 8.7 mg/dL (8.4-10.2); Carbon Dioxide 27 mmol/L (22-29); Chloride 110 mmol/L (96-108); Estimated Glomerular Filt Rate > 60; Glucose Random 78 mg/dL (60-115); Potassium 4.6 mmol/L (3.3-5.1); Sodium 142 mmol/L (135-145)
== END 2023-01-05 12:57 | disposition home or self-care (01) ==
LOC: HO.CT 12:56
PROVIDERS: PCP Internal Medicine; Visit Provider Physician Assistant Surgical
DX: R10.32 Left lower quadrant pain (principal); R50.9 Fever, unspecified; Z98.890 Other specified postprocedural states
CPT/HCPCS: 36415; 74176; 80048; 85025; 99212

== ENCOUNTER → 2023-01-10 08:46 | Outpatient (BNVA) | payer OTHER, SELFPAY | PROVIDERS: PCP Internal Medicine; Visit Provider Physician Assistant Surgical | DX: T81.31XA Disruption of external operation (surgical) wound, not elsewhere classified, initial encounter (principal) | CPT/HCPCS: 99212 ==

== ENCOUNTER 2023-01-11 14:18 | Day surgery (SDC) | payer OTHER, SELFPAY ==
--- NOTE | 2023-01-10 20:06 | MHC.SHP ---
Pre-Procedural Eval Section A Date of Service: 01/10/23 The patient is an INPATIENT: No The History & Physical has been completed within 30 days and I have reviewed it.: Yes Section B Chief Complaint: Disruption of external operation (surgical) wound, Relevant Family History (Specify if Yes): No Relevant Social History: None Present Medications: None Medical History: No relevant PMH History of Previous Operations: Relevant previous surgery/procedure and date(s) (Panniculectomy) Allergies: Allergies Allergy/AdvReac Type Severity Reaction Status Date / Time codeine [CODEINE] Allergy Intermediate HIVES, rash Verified 01/10/23 08:51 hydrocodone [From VICODIN] Allergy Intermediate HIVES Verified 01/10/23 08:51 shellfish derived Allergy Intermediate swollen Verified 01/10/23 08:51 Review of Systems Sugical H&P ROS: Negative: Constitution, Cardiovascular, Respiratory, Neurological, Psychiatric, Hem-Onc, Allergic/Immunologic, Genitourinary, Musculoskeletal, Integumentary, Endocrine and Eyes/Ears/Nose/Throat and Yes, Specify: Gastrointestinal (umbilical dehiscence ) Exam Surgical H&P Exam: Normal: HEENT, Normal: Heart, Normal: Lungs, Normal: Extremities, Normal: Skin and Normal: Neurological and Significant Findings: Abdomen (umbilical dehiscence) Plan Diagnosis/Plan: Unchanged (We discussed the possibility of removing the umbilicus completely and close the skin or try to re-suture the umbilicus with more permanent sutures. Possibility of infection and wound breakdown was discussed. The patient is in agreement with the plan.) I have reviewed the history and physical and performed a pertinent physical examination on my patient. No changes have occurred unless specified. Time Spent With Patient Time: Total time managing care of this patient today ____ minutes.
[2023-01-11] VITALS (11 sets, daily range): BP systolic 104–125; BP diastolic 41–64; PULSE 55–72; RESP 12–18; TEMP 36.1–36.6; O2SAT 99–100; BMI 28.5
[2023-01-11] MEDS: Lactated Ringers 1,000 ML 80 ML IVCONT (14:33)
--- NOTE | 2023-01-11 16:01 | P.BOP_ITS ---
Brief Operative Note Date of Service: 01/11/23 Pre-op diagnosis: Umbilical dehiscence Post-op diagnosis: same Procedure: This patient underwent a panniculectomy on 01/12/23. The patient developed umbilical dehiscence the first postoperative day on 12/13/22 and underwent under local anesthesia re-suturing of the umbilicus with absorbable sutures. The patient did well for 23 days but last Sunday developed a minor dehiscence at the 6pm position which over the weekend evolved to a complete dehiscence of the umbilicus which was confirned at her office appointment yesterday. The patient returns to the OR today for either re-suturing of the umbilicus with permanent sutures if it is viable and without significant tension, or excision of the umbilicus with skin closure. The patient is in agreement with the plan. The possibility of recurrence of the umbilical dehiscence, if preserved, was explained to the patient as well as the possibility of infection. Under LMA and local anesthesia with 2% 10ml lidocaine and 10 ml Ropivacaine the umbilicus was easily identified. The skin was completely viable and it could be easily deliver to the skin without tension. There was no evidence of infection and the skin edges of the umbilicus and the superior flap defect (where the umbilicus was reimplanted) were viable without ischemia or necrosis. There was no need for any debridement. The drain that was placed at the original operation was identifed and repositioned around the umbilicus. After we made sure that the umbilical stalk was not twisted, the skin edges were approximated with several interrupted 3.0 Nylon sutures in a vertical mattress fashion. At that point we made sure that the drain was functioning and could hold negative pressure. Once this was confirmed, Xeroform gauze and dressings were all replaced. Patient tolerated the procedure well and willbe discharged home. Mynor Philippe MD Surgeon: Mynor Philippe MD Anesthesia: GLMA Was an Computational Biologist used for this Procedure?: No Computational Biologist: Velasquez Raymond Estimated blood loss (mL): 0 IV fluids (mL): 700 Urine output (mL): 0 (No fuentes to record output) Pathology: none sent Condition: stable Disposition: PACU
--- NOTE | 2023-01-11 16:09 | HO.ANESPROP2 ---
HPI - Anesthesia Eval Consult details Narrative: 47yo F for wound closure , patient with umblical wound dehiscence s/p r Panniculectomy s/p gastric sleeve 2020 with GA-ETT 7 s/p c-spine fusion spinal stim in situ PMFSH Active Problems Active Problems: All Active Problems (Updated 01/10/23 @ 09:32 by TYLER Rogers) External incisional dehiscence (Acute) LLQ abdominal pain (Acute) Fever (Acute) S/P panniculectomy (Acute) Preoperative examination (Acute) Body mass index (BMI) of 36.0 to 36.9 in adult (Acute) BMI 33.0-33.9,adult (Acute) Obesity (Acute) Tingling in extremities (Acute) Vitamin D deficiency (Acute) Vitamin A deficiency (Acute) BMI 31.0-31.9,adult (Acute) BMI 30.0-30.9,adult (Acute) Excess skin (Acute) Overweight (Acute) Intestinal malabsorption following gastrectomy (Acute) History of sleeve gastrectomy (Acute) Past Medical History Medical History Anxiety Chronic back pain Crohn's disease DDD (degenerative disc disease) Depression Hypothyroidism Intestinal malabsorption following gastrectomy Lab test negative for COVID-19 virus Obesity (BMI 30-39.9) Obstructive sleep apnea Shortness of breath Type II diabetes mellitus Wears partial dentures Functional capacity: independent ambulation Family History Family History Father No problems noted. Mother Diabetes mellitus Brother No problems noted. Brother No problems noted. Brother No problems noted. Brother No problems noted. Brother No problems noted. Sister Type I diabetes mellitus Sister No problems noted. Son No problems noted. Son No problems noted. Son No problems noted. Daughter No problems noted. Daughter No problems noted. Family history of problems with anesthesia: No Surgical History Surgical History History of Achilles tendon repair History of bilateral tubal ligation History of section History of fusion of cervical spine History of laparoscopic cholecystectomy History of sleeve gastrectomy Other specified postprocedural states S/P placement of nerve stimulator History of Problems with Anesthesia: No Social History Social History Household Members: Significant Other Housing: House Are you a primary continuum of care manager to a significant other at home: No Do you presently have visiting nurse or other home services: No Alcohol intake: never Patient Tobacco Use Status: Never used Tobacco Advance Directives Date on File: 08/15/16 service: No Current occupational status: employed Meds Allergies Allergy/AdvReac Type Severity Reaction Status Date / Time codeine [CODEINE] Allergy Intermediate HIVES, rash Verified 01/11/23 14:09 hydrocodone [From VICODIN] Allergy Intermediate HIVES Verified 01/11/23 14:09 shellfish derived Allergy Intermediate swollen Verified 01/11/23 14:09 Active Medications: Current Medications Lactated Ringer's (Lr) 1,000 mls @ 80 mls/hr IVCONT .[id number] NITA Last Admin: 01/11/23 14:33 Dose: 80 mls/hr Home Medications Medication Instructions Recorded Confirmed Last Taken Type buspirone 5 mg tablet 5 mg PO BID 07/08/20 01/11/23 Unknown History clonazepam 1 mg tablet 1 mg PO BID 07/08/20 01/11/23 01/11/23 History infliximab 100 mg intravenous IV Q8W 07/08/20 01/05/23 Unknown History solution (Remicade) levothyroxine 75 mcg tablet 75 mcg PO DAILY 07/08/20 01/11/23 Unknown History oxycodone 10 mg tablet 10 mg PO BID PRN pain 08/25/20 01/11/23 Unknown History ovqhavvo-mchadcwp-wzpa 45 mg-folic 1 cap PO DAILY 11/18/20 01/11/23 Unknown History acid 800 mcg-vit K 120 mcg capsule (Bariatric Multivitamins) clotrimazole 1 % topical cream 1 appl topical BID PRN Rash 11/30/22 01/11/23 Unknown History (Antifungal (clotrimazole)) trazodone 100 mg tablet 1 tab PO BEDTIME 11/30/22 01/11/23 Unknown History Exam Exam Date and Time: January 11, 2023 1609 Height,Weight and Vital Signs: Height 5 ft 4 in Weight 75.296 kg Last Vital Signs Temp 97.8 F 01/11/23 14:39 Pulse 72 01/11/23 14:39 Resp 18 01/11/23 14:39 BP 104/64 01/11/23 14:39 Pulse Ox 99 01/11/23 14:39 O2 Del Method Room Air 01/11/23 14:39 Airway Mallampati Class: IV TM Dist: >3cm Neck ROM: Full Partial: Upper Loose/Missing/Broken Teeth: Yes (Upper partial glued in ) Assessment and Plan Assessment Anesthesia Assessment: Anesthesia Plan Discussed and Chart Reviewed Final Anesthetic Review Family History of Problems with Anesthesia: No History of Problems with Anesthesia: No NPO: Yes Final Preanesthetic Review: Meds/Allgs Chart Reviewed, Consent Obtained/Reviewed and Anes Risks/Benef Reviewed Patient Risk: Intermediate Procedure Risk: Intermediate Anesthetic Plan Anesthetic Plan: GA Disposition: Standard PACU
[2023-01-11] MEDS: Acetaminophen 1,000 MG/100 ML PIGGYBACK 400 MG IV (17:53)
[2023-01-11] MEDS: fentaNYL citrate/PF 100 MCG/2 ML VIAL 25 MCG IVPUSH ×2 (17:54→18:06)
[2023-01-11] MEDS: Ketorolac Tromethamine 15 MG/ML VIAL IVPUSH (19:28)
== END 2023-01-11 19:30 | disposition home or self-care (01) ==
PROVIDERS: PCP Internal Medicine; Visit Provider Surgery
PROC: (CPT 12020; principal; 2023-01-11 15:30)
DX: T81.31XA Disruption of external operation (surgical) wound, not elsewhere classified, initial encounter (principal); L76.82 Other postprocedural complications of skin and subcutaneous tissue; Z98.84 Bariatric surgery status; Y83.8 Other surgical procedures as the cause of abnormal reaction of the patient, or of later complication, without mention of misadventure at the time of the procedure; Y82.8 Other medical devices associated with adverse incidents; Y92.9 Unspecified place or not applicable; Z88.8 Allergy status to other drugs, medicaments and biological substances
CPT/HCPCS: 12020; J0131; J0690; J1885; J2250; J2405; J2795; J3010

== ENCOUNTER → 2023-01-12 11:40 | Outpatient (BNVA) | payer OTHER, SELFPAY | PROVIDERS: PCP Internal Medicine; Visit Provider Physician Assistant Surgical | DX: T81.31XA Disruption of external operation (surgical) wound, not elsewhere classified, initial encounter (principal) | CPT/HCPCS: 99212 ==

== ENCOUNTER → 2023-01-15 12:28 | Outpatient (BNVA) | payer OTHER, SELFPAY | PROVIDERS: PCP Internal Medicine; Visit Provider Physician Assistant Surgical | DX: T81.31XA Disruption of external operation (surgical) wound, not elsewhere classified, initial encounter (principal) | CPT/HCPCS: 99212 ==

== ENCOUNTER → 2023-01-19 10:29 | Outpatient (BNVA) | payer OTHER, SELFPAY | PROVIDERS: PCP Internal Medicine; Visit Provider Surgery | DX: Z48.89 Encounter for other specified surgical aftercare (principal) | CPT/HCPCS: 99212 ==

== ENCOUNTER → 2023-01-26 10:33 | Outpatient (BNVA) | payer OTHER, SELFPAY | PROVIDERS: PCP Internal Medicine; Visit Provider Physician Assistant Surgical | DX: Z48.89 Encounter for other specified surgical aftercare (principal) | CPT/HCPCS: 99212 ==

== ENCOUNTER → 2023-02-05 09:04 | Outpatient (BNVA) | payer OTHER, SELFPAY | PROVIDERS: PCP Internal Medicine; Visit Provider Surgery | DX: Z48.89 Encounter for other specified surgical aftercare (principal) | CPT/HCPCS: 99212 ==

== ENCOUNTER → 2023-02-13 11:19 | Outpatient (BNVA) | payer OTHER, SELFPAY | PROVIDERS: PCP Internal Medicine; Visit Provider Physician Assistant Surgical | DX: Z48.89 Encounter for other specified surgical aftercare (principal) | CPT/HCPCS: 99212 ==

== ENCOUNTER → 2023-02-22 10:58 | Outpatient (BNVA) | payer OTHER, SELFPAY | PROVIDERS: PCP Internal Medicine; Visit Provider Physician Assistant Surgical | DX: Z98.890 Other specified postprocedural states (principal) | CPT/HCPCS: 99212 ==

== ENCOUNTER 2023-04-06 15:28 | Outpatient (AMB) | payer OTHER, SELFPAY ==
--- NOTE | 2023-04-06 15:35 | A.OFFVIS_ITS ---
Intake VS Expanded 04/06/23 15:39 Height 5 ft 4 in Weight 174 lb 12.8 oz BMI 30.0 BP 121/73 Blood Pressure Location Rt brachial Blood Pressure Position Sitting Pulse 70 Pulse Source Pulse Oximeter Temp 97.4 F Temperature Source Temporal Artery Scan Pulse Oximetry 98 Oxygen Delivery Method Room Air Body Fat 57.6 Body Fat Percentage 33.0 Free Fat Mass 117.0 Muscle Mass 111.2 Visceral Mass 7.0 Water Mass 83.4 BMR 1,580 Intake Visit Reasons: OV PO Panniculectomy 12/12/22 Rehabilitation Therapist Required: No Allergies codeine [CODEINE] Allergy (Intermediate, Verified 04/06/23 15:41) HIVES, rash hydrocodone [From VICODIN] Allergy (Intermediate, Verified 04/06/23 15:41) HIVES shellfish derived Allergy (Intermediate, Verified 04/06/23 15:41) swollen Medication List - Last Reconciled 04/06/23 by TYLER Rogers buspirone 5 mg PO BID clonazepam 1 mg PO BID clotrimazole 1% (Antifungal (clotrimazole)) 1 appl topical BID PRN docusate sodium (Colace) 100 mg PO BID infliximab (Remicade) IV Q8W inulin 2 grams PO DAILY levothyroxine 75 mcg PO DAILY mirtazapine (Remeron) 15 mg PO BEDTIME PRN rtktchbxsrix-wsz-omjd-FA-vit K 45 mg iron- 800 mcg-120 mcg (Bariatric Multivitamins) 1 cap PO DAILY oxycodone 10 mg PO BID PRN HPI HPI Comments History of Present Illness Details 47 yo female s/p panniculectomy on 12/12/22. She c/o constipation. last BM 5 days ago. C/O cramping. No nausea. Pos flatus. Meal, plan: slim fast RTD or GNC or quest bar 1/2-3/4 c tuna and veg 1/2 c cottage cheese 4 forks protein and 7 forks veg drinking 48 oz daily exercise plan treadmill 1/2 hr, squats PFS Medical History Anxiety Chronic back pain Crohn's disease DDD (degenerative disc disease) Depression Hypothyroidism Intestinal malabsorption following gastrectomy Lab test negative for COVID-19 virus Obesity (BMI 30-39.9) Obstructive sleep apnea Shortness of breath Type II diabetes mellitus Wears partial dentures Surgical History History of Achilles tendon repair History of bilateral tubal ligation History of section History of fusion of cervical spine History of laparoscopic cholecystectomy History of sleeve gastrectomy Other specified postprocedural states S/P placement of nerve stimulator Family History Father No problems noted. Mother Diabetes mellitus Brother No problems noted. Brother No problems noted. Brother No problems noted. Brother No problems noted. Brother No problems noted. Sister Type I diabetes mellitus Sister No problems noted. Son No problems noted. Son No problems noted. Son No problems noted. Daughter No problems noted. Daughter No problems noted. Social History Household Members: Significant Other Housing: House Are you a primary director of career resources to a significant other at home: No Do you presently have visiting nurse or other home services: No Alcohol intake: never Patient Tobacco Use Status: Never used Tobacco Advance Directives Date on File: 08/15/16 service: No Current occupational status: employed Physical Exam Vital Signs: Last Vital Signs Temp 97.4 F 04/06/23 15:39 Pulse 70 04/06/23 15:39 BP 121/73 04/06/23 15:39 Pulse Ox 98 04/06/23 15:39 Oxygen Delivery Method Room Air 04/06/23 15:39 BMI result Body Mass Index 30.0 GI Other: well healed incisions transverse abdomen, umbilicus Palpation (GI): Soft to palpation and nontender Assessment & Plan Assessment & Plan (1) Constipation: Code(s): K59.00 - Constipation, unspecified Plan: add dulcolax, additional water, senna fiber gummies once normal BMs (2) S/P panniculectomy: Code(s): Z98.890 - Other specified postprocedural states Plan: well healed no restrictions on exercie Medications: New sennosides (senna) 17.2 mg (2 x 8.6 mg) PO BEDTIME 90 days PRN 180 tabs 0RF constipation bisacodyl (Dulcolax (bisacodyl)) 10 mg [place] DAILY PRN 12 ea 0RF constipation Coding Level of Care Code Tele Est Pt Level 3 (35350) Diagnoses Constipation K59.00 S/P panniculectomy Z98.890
[2023-04-06 15:39] VITALS: BP 121/73; PULSE 70; TEMP 36.3; O2SAT 98
== END 2023-04-06 16:20 | disposition home or self-care (01) ==
PROVIDERS: PCP Internal Medicine; Visit Provider Physician Assistant Surgical
DX: K59.00 Constipation, unspecified (principal); Z98.890 Other specified postprocedural states
CPT/HCPCS: 99213

== ENCOUNTER → 2023-04-06 15:28 | Outpatient (BNVA) | payer OTHER, SELFPAY | PROVIDERS: PCP Internal Medicine; Visit Provider Physician Assistant Surgical | DX: K59.00 Constipation, unspecified (principal); Z98.890 Other specified postprocedural states | CPT/HCPCS: 99212 ==

== ENCOUNTER 2023-09-07 15:41 | Outpatient (AMB) | payer OTHER, SELFPAY ==
--- NOTE | 2023-09-07 08:23 | MHC.OFFVISWM ---
Intake VS Expanded 09/07/23 08:24 Height 5 ft 4 in Weight 184 lb 4 oz BMI 31.6 Intake Visit Reasons: tv PO Panniculectomy 12/12/22 Director Of Psychiatry Required: No Allergies codeine [CODEINE] Allergy (Intermediate, Verified 04/06/23 15:41) HIVES, rash hydrocodone [From VICODIN] Allergy (Intermediate, Verified 04/06/23 15:41) HIVES shellfish derived Allergy (Intermediate, Verified 04/06/23 15:41) swollen Medication List - Last Reconciled 09/07/23 by TYLER Rogers bisacodyl (Dulcolax (bisacodyl)) 10 mg [place] DAILY PRN buspirone 5 mg PO BID clonazepam 1 mg PO BID clotrimazole 1% (Antifungal (clotrimazole)) 1 appl topical BID PRN docusate sodium (Colace) 100 mg PO .prn infliximab (Remicade) IV Q8W inulin 2 grams PO DAILY levothyroxine 75 mcg PO DAILY mirtazapine (Remeron) 15 mg PO BEDTIME PRN cdahkaxbario-xcf-obnw-FA-vit K 45 mg iron- 800 mcg-120 mcg (Bariatric Multivitamins) 1 cap PO DAILY oxycodone 10 mg PO BID PRN sennosides (senna) 17.2 mg (2 x 8.6 mg) PO BEDTIME PRN 90 days HPI HPI Comments History of Present Illness Details Patient is a pleasant 48-year-old female who returns to the office today in follow-up. She is status post panniculectomy on 12/12/2022 and sleeve gastrectomy on 08/25/2020. The panniculectomy was performed by Dr. Philippe and the sleeve gastrectomy was performed by Dr. Freeman. She states that her weight today is 184.4 lb corresponding to a BMI of 31.6. Doing bariatric fusion multi vitamin Also complaining of excess skin of bilateral thighs, causing rubbing and discomfort with clothing. She has had intermittent rash in the groin that improves with clotrimazole cream although she is now out of it however recurs. Scheduled for laminoplasty surgery 10/26/23- spine surgery - dr geovanni TIER[place], Any post op complications: none MUNA: dx but never got the machine. DM: resolved HTN: never Hyperlipidemia: never GERD:?0-5 scale ??0 = no symptoms ??1 = symptoms noticeable but not bothersome 2 =symptoms bothersome but not daily ? 3 = symptoms bothersome and daily 4 = symptoms affect daily activities 5 = symptoms are incapacitating, unable to do daily activities ? How bad is the heartburn: 0 ? Heartburn while lying down: 0 ? Heartburn when standing up: 0 ? Heartburn after meals: 0 ? Does heartburn change your diet: 0 ? Does heartburn wake you up from sleep: 0 ? Do you have difficulty swallowin ? Do you have pain with swallowin ? If you take medicine for your reflux, does this affect your daily life: 0 Satisfaction with present condition - satisfied or not satisfied: not satisifed-gained 10 pounds in last 5 months Meal plan: (previously doing premier protein RTD 30 gm/ GNC 25 gm) herbalife protein coffee -15 gm 2 built puff bar-17 gm protein meal not measuring protein or salad, rare pasta 2 x per week cake Drinking 50 oz of water daily. Exercise plan: no gym in the last month [facility] Medical History Intestinal malabsorption following gastrectomy Wears partial dentures Lab test negative for COVID-19 virus Shortness of breath Obesity (BMI 30-39.9) Obstructive sleep apnea Chronic back pain DDD (degenerative disc disease) Hypothyroidism Depression Anxiety Crohn's disease Type II diabetes mellitus Surgical History S/P placement of nerve stimulator History of sleeve gastrectomy History of bilateral tubal ligation History of fusion of cervical spine Other specified postprocedural states History of Achilles tendon repair History of section History of laparoscopic cholecystectomy Family History Father No problems noted. Mother Diabetes mellitus Brother No problems noted. Brother No problems noted. Brother No problems noted. Brother No problems noted. Brother No problems noted. Sister Type I diabetes mellitus Sister No problems noted. Son No problems noted. Son No problems noted. Son No problems noted. Daughter No problems noted. Daughter No problems noted. Social History Household Members: Significant Other Housing: House Are you a primary childcare worker to a significant other at home: No Do you presently have visiting nurse or other home services: No Alcohol intake: never Comment: sleeping Patient Tobacco Use Status: Never used Tobacco Advance Directives Date on File: 08/15/16 service: No Current occupational status: employed Assessment & Plan Assessment & Plan (1) Obesity: Code(s): E66.9 - Obesity, unspecified Plan: She states that she is in need of further plans and guidance Meal plan: Using Premier protein ready to drink shakes, 7-9 half the pre mere protein shake mixed with 6 oz of unsweetened almond milk 11-1 built bar 2-4 the other half of the shake 6pm, meal with 6 for S of protein in 6 for excess of vegetables. She will call her orthopedic surgeon to determine what she is allowed to do for exercise and text me with the answers. She has additionally been encouraged to get a body composition scale and text me her weight weekly. (2) Excess skin: Code(s): L98.7 - Excessive and redundant skin and subcutaneous tissue Plan: Discussion for thigh plasty however she certainly needs to achieve a healthy weight and maintain it for 6 months prior to consideration. I will renew the clotrimazole prescription (3) History of sleeve gastrectomy: Code(s): Z90.3 - Acquired absence of stomach [part of] Plan: As above Additionally check 3 year follow-up labs Orders: Orders Hemoglobin A1c Today E50.9 - Vitamin A deficiency, unspecified, E55.9 - Vitamin D deficiency, unspecified, E66.9 - Obesity, unspecified, Z90.3 - Acquired absence of stomach [part of] Comprehensive Met. Panel Today E50.9 - Vitamin A deficiency, unspecified, E55.9 - Vitamin D deficiency, unspecified, E66.9 - Obesity, unspecified, Z90.3 - Acquired absence of stomach [part of] Vitamin B12 and Folate Today E50.9 - Vitamin A deficiency, unspecified, E55.9 - Vitamin D deficiency, unspecified, E66.9 - Obesity, unspecified, Z90.3 - Acquired absence of stomach [part of] Vitamin B1 Today E50.9 - Vitamin A deficiency, unspecified, E55.9 - Vitamin D deficiency, unspecified, E66.9 - Obesity, unspecified, Z90.3 - Acquired absence of stomach [part of] Vitamin A Today E50.9 - Vitamin A deficiency, unspecified, E55.9 - Vitamin D deficiency, unspecified, E66.9 - Obesity, unspecified, Z90.3 - Acquired absence of stomach [part of] TSH reflex Free T4 Today E50.9 - Vitamin A deficiency, unspecified, E55.9 - Vitamin D deficiency, unspecified, E66.9 - Obesity, unspecified, Z90.3 - Acquired absence of stomach [part of] Ferritin Today E50.9 - Vitamin A deficiency, unspecified, E55.9 - Vitamin D deficiency, unspecified, E66.9 - Obesity, unspecified, Z90.3 - Acquired absence of stomach [part of] Insulin Today E50.9 - Vitamin A deficiency, unspecified, E55.9 - Vitamin D deficiency, unspecified, E66.9 - Obesity, unspecified, Z90.3 - Acquired absence of stomach [part of] Complete Blood Count Auto Diff Today E50.9 - Vitamin A deficiency, unspecified, E55.9 - Vitamin D deficiency, unspecified, E66.9 - Obesity, unspecified, Z90.3 - Acquired absence of stomach [part of] Lipid Panel Today E50.9 - Vitamin A deficiency, unspecified, E55.9 - Vitamin D deficiency, unspecified, E66.9 - Obesity, unspecified, Z90.3 - Acquired absence of stomach [part of] IRON PROFILE Today E50.9 - Vitamin A deficiency, unspecified, E55.9 - Vitamin D deficiency, unspecified, E66.9 - Obesity, unspecified, Z90.3 - Acquired absence of stomach [part of] Zinc Today E50.9 - Vitamin A deficiency, unspecified, E55.9 - Vitamin D deficiency, unspecified, E66.9 - Obesity, unspecified, Z90.3 - Acquired absence of stomach [part of] C Reactive Protein Today E50.9 - Vitamin A deficiency, unspecified, E55.9 - Vitamin D deficiency, unspecified, E66.9 - Obesity, unspecified, Z90.3 - Acquired absence of stomach [part of] Vitamin D 25-OH Total Today E50.9 - Vitamin A deficiency, unspecified, E55.9 - Vitamin D deficiency, unspecified, E66.9 - Obesity, unspecified, Z90.3 - Acquired absence of stomach [part of] Medications: Changed From clotrimazole 1% (Antifungal (clotrimazole)) 1 appl topical BID PRN Rash To clotrimazole 1% (Antifungal (clotrimazole)) apply sparingly bid x 7 days if rash 1 appl topical BID PRN 45 grams 2RF Rash Telehealth Telehealth Location of provider rendering services: practice address Location of patient: address on file Patient Identification confirmed using: Name, : Yes Telehealth method: voice only Patient verbally consented to treatment: Yes Patient verbally consented to billing insurance company: Yes Patient informed of any privacy concerns related to visit: Yes Minutes spent on Phone/Video with Pt.: 25 Coding Level of Care Code Tele Est Pt Level 4 (11928) Diagnoses Obesity E66.9 Excess skin L98.7 History of sleeve gastrectomy Z90.3 Time Spent (min) 35
[2023-09-07 08:24] VITALS: BMI 31.6
== END 2023-09-07 16:14 | disposition home or self-care (01) ==
LOC: HO.HBS 15:41
PROVIDERS: PCP Internal Medicine; Visit Provider Physician Assistant Surgical
DX: E66.9 Obesity, unspecified (principal); L98.7 Excessive and redundant skin and subcutaneous tissue; Z90.3 Acquired absence of stomach [part of]
CPT/HCPCS: 99214

== ENCOUNTER → 2023-09-07 15:41 | Outpatient (BNVA) | payer OTHER, SELFPAY | PROVIDERS: PCP Internal Medicine; Visit Provider Physician Assistant Surgical ==

== ENCOUNTER 2023-10-23 09:32 | Outpatient (REF) | payer OTHER, SELFPAY ==
[2023-10-23 09:56] LABS: MANUAL DIFF FLAG NO
[2023-10-23 10:34] LABS: Basophils Absolute Auto 0.1 X10*3/uL (0.0-0.2); Basophils Percent Auto 1.3 % (0-2); Eosinophils Absolute Auto 0.4 X10*3/uL (0.0-0.4); Eosinophils Percent Auto 7.8 % (0-4); Hematocrit 42.1 % (37.0-47.0); Hemoglobin 13.7 g/dl (12.0-16.0); Imm Gran Abs Auto 0.01 X10*3/uL (0.00-0.03); Imm Gran Pct Auto 0.2 % (0.0-0.4); Lymphocytes Absolute Auto 1.9 X10*3/uL (1.2-4.9); Lymphocytes Percent Auto 40.8 % (20-40); Mean Corpuscular HGB Conc 32.5 g/dl (31.0-35.0); Mean Corpuscular Hemoglobin 29.2 pg (27.0-33.0); Mean Corpuscular Volume 89.8 fL (80.0-98.0); Mean Platelet Volume 9.9 fL (9.4-12.3); Monocytes Absolute Auto 0.5 X10*3/uL (0.1-1.2); Monocytes Percent Auto 10.9 % (2-11); Neutrophils Absolute Auto 1.9 x10*3/uL (2.0-8.3); Platelet Count 224 X10*3/uL (160-400); Red Blood Count 4.69 X10*6/uL (4.20-5.50); Red Cell Distribution Width 12.8 % (11.0-16.0); White Blood Count 4.8 X10*3/uL (4.8-10.8)
[2023-10-23 10:44] LABS: Estimated Average Glucose 97 mg/dL
[2023-10-23 11:23] LABS: Alanine Aminotransferase 33 U/L (0-31); Alkaline Phosphatase 99 U/L (39-117); Anion Gap 11 (12-20); Aspartate Amino Transferase 34 U/L (5-31); Bilirubin Total 0.6 mg/dL (0.0-1.0); Blood Urea Nitrogen 14 mg/dL (9-16); C Reactive Protein < 0.10 mg/dL (< or = 0.50); Calcium 9.5 mg/dL (8.4-10.2); Carbon Dioxide 28 mmol/L (22-29); Chloride 107 mmol/L (96-108); Cholesterol 232 mg/dL (<200); Estimated Glomerular Filt Rate > 60; Glucose Random 86 mg/dL (60-115); HDL Cholesterol 71 mg/dL (>40); Iron 264 mcg/dL (30-160); LDL Cholesterol Calculated 143 mg/dL (<100); Percent Iron Saturation 60 % (15-50); Potassium 4.2 mmol/L (3.3-5.1); Sodium 142 mmol/L (135-145); Total Iron Binding Capacity 442 mcg/dL (228-428); Total Protein 7.8 g/dL (6.5-8.0); Triglycerides 91 mg/dL (<150); Unsaturated Iron Binding 178 ug/dL
[2023-10-23 11:43] LABS: Folate 11.3 ng/mL (> or = 4.0); Vitamin B12 858 pg/mL (200-900)
[2023-10-23 11:50] LABS: Ferritin 17 ng/mL (10-250); Insulin 11 uU/mL (2-29); TSH reflex Free T4 1.01 uIU/mL (0.32-4.0); Vitamin D 25-OH Total 24.9 ng/mL (>30)
[2023-10-26 12:29] LABS: Zinc 101 mcg/dL (60-130)
[2023-10-27 01:43] LABS: Vitamin A 36 mcg/dL (38-98)
[2023-10-27 16:09] LABS: Vitamin B1 25 nmol/L (8-30)
== END 2023-10-23 09:33 | disposition home or self-care (01) ==
LOC: HO.LAB 09:32
PROVIDERS: PCP Internal Medicine; Visit Provider Physician Assistant Surgical
DX: E66.9 Obesity, unspecified (principal); E55.9 Vitamin D deficiency, unspecified; E50.9 Vitamin A deficiency, unspecified; Z90.3 Acquired absence of stomach [part of]
CPT/HCPCS: 36415; 80053; 80061; 82306; 82607; 82728; 82746; 83036; 83525; 83540; 84425; 84443; 84590; 84630; 85025; 86140

== ENCOUNTER 2023-10-23 10:48 | Outpatient (AMB) | payer OTHER, SELFPAY ==
[2023-10-23 09:42] VITALS: BMI 32.1
--- NOTE | 2023-10-23 09:42 | A.OFFVIS_ITS ---
Intake VS Expanded 10/23/23 09:42 Height 5 ft 4 in Weight 187 lb 3.2 oz BMI 32.1 Body Fat % 41 Body Fat Mass 76.7 Fat Free Mass 110.4 Visceral Fat Rating 14 Body Water % 40.5 Body Water Mass 75.8 Muscle Mass/Score 103.8 Basal Metabolic Rate/Score 1,451 Intake Visit Reasons: (TV) PO LSG 08/25/20 Grocery Checker Required: No Allergies codeine [CODEINE] Allergy (Intermediate, Verified 04/06/23 15:41) HIVES, rash hydrocodone [From VICODIN] Allergy (Intermediate, Verified 04/06/23 15:41) HIVES shellfish derived Allergy (Intermediate, Verified 04/06/23 15:41) swollen HPI HPI Comments History of Present Illness Details Patient is a pleasant 48-year-old female who returns to the office today in follow-up. She is status post panniculectomy on 12/12/2022 and sleeve gastrectomy on 08/25/2020. The panniculectomy was performed by Dr. Philippe and the sleeve gastrectomy was performed by Dr. Freeman. She states that her weight today is 187.2 lb corresponding to a BMI of 32.1. Doing bariatric fusion multi vitamin Also complaining of excess skin of bilateral thighs, causing rubbing and discomfort with clothing. She has had intermittent rash in the groin that improves with clotrimazole cream. She has been having intermittent constipation and is followed by gastroenterology for her underlying Crohn's disease. Scheduled for laminoplasty surgery 11/02/23- spine surgery - dr geovanni TIERNEY, She states she has been using premier protein powder 1 scoop in 8 oz water 2 shakes, one bar and a meal Meal plan: Using Premier protein ready to drink shakes, 7-9 half the premier protein shake mixed with 6 oz of unsweetened almond milk 11-1 built bar 2-4 the other half of the shake 6pm, meal with 6 forks of protein and 6 forks of vegetables. Drinking 62 oz of water daily. Exercise plan: stationary bike 45 min 3 x week, 400 calories [facility] Medical History Intestinal malabsorption following gastrectomy Wears partial dentures Lab test negative for COVID-19 virus Shortness of breath Obesity (BMI 30-39.9) Obstructive sleep apnea Chronic back pain DDD (degenerative disc disease) Hypothyroidism Depression Anxiety Crohn's disease Type II diabetes mellitus Surgical History S/P placement of nerve stimulator History of sleeve gastrectomy History of bilateral tubal ligation History of fusion of cervical spine Other specified postprocedural states History of Achilles tendon repair History of section History of laparoscopic cholecystectomy Family History Father No problems noted. Mother Diabetes mellitus Brother No problems noted. Brother No problems noted. Brother No problems noted. Brother No problems noted. Brother No problems noted. Sister Type I diabetes mellitus Sister No problems noted. Son No problems noted. Son No problems noted. Son No problems noted. Daughter No problems noted. Daughter No problems noted. Social History Household Members: Significant Other Housing: House Are you a primary health care legal assistant to a significant other at home: No Do you presently have visiting nurse or other home services: No Alcohol intake: never Comment: sleeping Patient Tobacco Use Status: Never used Tobacco Advance Directives Date on File: 08/15/16 service: No Current occupational status: employed Assessment & Plan Assessment & Plan (1) Obesity: Code(s): E66.9 - Obesity, unspecified Plan: Patient has AG and C protein ready to drink shake, 30 g per serving. She was split this into 2 portions. She will additionally remove the built bar and have 2 small meals consisting of 5 forks of protein and 5 forks of vegetables. She will continue with her current bowel regimen, avoiding multivitamin with iron for a regular multivitamin. Encouraged to have green leafy vegetables. She will follow up in the office in approximately 6 weeks. Telehealth Telehealth Location of provider rendering services: practice address Location of patient: other Patient Identification confirmed using: Name, : Yes Telehealth method: voice only Patient verbally consented to treatment: Yes Patient verbally consented to billing insurance company: Yes Patient informed of any privacy concerns related to visit: Yes Minutes spent on Phone/Video with Pt.: 12 Coding Level of Care Code Tele Est Pt Level 3 (97943) Diagnoses Obesity E66.9 Time Spent (min) 20
== END 2023-10-23 10:54 | disposition home or self-care (01) ==
LOC: HO.HBS 10:49
PROVIDERS: PCP Internal Medicine; Visit Provider Physician Assistant Surgical
DX: E66.9 Obesity, unspecified (principal)
CPT/HCPCS: 99213

== ENCOUNTER 2023-12-04 11:40 | Outpatient (AMB) | payer OTHER, SELFPAY ==
[2023-12-04 08:58] VITALS: BMI 31.9
--- NOTE | 2023-12-04 08:58 | A.OFFVIS_ITS ---
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 Allergies codeine [CODEINE] Allergy (Intermediate, Verified 04/06/23 15:41) HIVES, rash hydrocodone [From VICODIN] Allergy (Intermediate, Verified 04/06/23 15:41) HIVES shellfish derived Allergy (Intermediate, Verified 04/06/23 15:41) swollen Medication List - Last Reconciled 12/04/23 by TYLER Rogers bisacodyl (Dulcolax (bisacodyl)) 10 mg [place] DAILY PRN buspirone 5 mg PO BID clonazepam 1 mg PO BID clotrimazole 1% (Antifungal (clotrimazole)) 1 appl topical BID PRN docusate sodium (Colace) 100 mg PO .prn infliximab (Remicade) IV Q8W inulin 2 grams PO DAILY levothyroxine 75 mcg PO DAILY mirtazapine (Remeron) 15 mg PO BEDTIME PRN othtmkwrveth-xvk-msud-FA-vit K 45 mg iron- 800 mcg-120 mcg (Bariatric Multivitamins) 1 cap PO DAILY oxycodone 10 mg PO BID PRN sennosides (senna) 17.2 mg (2 x 8.6 mg) PO BEDTIME PRN 90 days HPI HPI Comments History of Present Illness Details Patient is a pleasant 48-year-old female who returns to the office today in follow-up. She is status post panniculectomy on 12/12/2022 and sleeve gastrectomy on 08/25/2020. The panniculectomy was performed by Dr. Philippe and the sleeve gastrectomy was performed by Dr. Freeman. She states that her weight today is 186 lb corresponding to a BMI of 31.9. Doing bariatric fusion multi vitamin Also complaining of excess skin of bilateral thighs, causing rubbing and discomfort with clothing. She has had intermittent rash in the groin that improves with clotrimazole cream. She has been having intermittent constipation and is followed by gastroenterology for her underlying Crohn's disease. Had laminoplasty surgery 11/02/23- spine surgery - dr geovanni [place], still sore and not back to work or able to exercise. F/U 12/13/23 She states she has been using premier protein powder 1 scoop in 8 oz water 2 shakes, one bar and a meal Meal plan: Using Premier protein ready to drink shakes, 7-9 half the premier protein shake mixed with 6 oz of unsweetened almond milk 11-1 built bar 2-4 the other half of the shake 6pm, meal with 6 forks of protein and 6 forks of vegetables. Drinking 32 oz of water daily. Exercise plan: none now. [facility] Medical History Intestinal malabsorption following gastrectomy Wears partial dentures Lab test negative for COVID-19 virus Shortness of breath Obesity (BMI 30-39.9) Obstructive sleep apnea Chronic back pain DDD (degenerative disc disease) Hypothyroidism Depression Anxiety Crohn's disease Type II diabetes mellitus Surgical History S/P placement of nerve stimulator History of sleeve gastrectomy History of bilateral tubal ligation History of fusion of cervical spine Other specified postprocedural states History of Achilles tendon repair History of section History of laparoscopic cholecystectomy Family History Father No problems noted. Mother Diabetes mellitus Brother No problems noted. Brother No problems noted. Brother No problems noted. Brother No problems noted. Brother No problems noted. Sister Type I diabetes mellitus Sister No problems noted. Son No problems noted. Son No problems noted. Son No problems noted. Daughter No problems noted. Daughter No problems noted. Social History Household Members: Significant Other Housing: House Are you a primary urgent care physician assistant to a significant other at home: No Do you presently have visiting nurse or other home services: No Alcohol intake: never Comment: sleeping Patient Tobacco Use Status: Never used Tobacco Advance Directives Date on File: 08/15/16 service: No Current occupational status: employed Physical Exam Vital Signs: BMI result Body Mass Index 31.9 Assessment & Plan Assessment & Plan (1) Obesity: Code(s): E66.9 - Obesity, unspecified Plan: Continue current meal plan. She is recovering from recent laminectomy in October. She has follow-up withNIALL 12/13/2023. Hopefully she will be able to start exercising at that point. We will have her return to the office in 5 weeks. She certainly has been encouraged to text weekly with her weight and if any questions or concerns. Telehealth Telehealth Location of provider rendering services: practice address Location of patient: address on file Patient Identification confirmed using: Name, : Yes Telehealth method: voice only Patient verbally consented to treatment: Yes Patient verbally consented to billing insurance company: Yes Patient informed of any privacy concerns related to visit: Yes Minutes spent on Phone/Video with Pt.: 12 Coding Level of Care Code Tele Est Pt Level 3 (35016) Diagnoses Obesity E66.9 Time Spent (min) 15
== END 2023-12-04 11:59 | disposition home or self-care (01) ==
LOC: HO.HBS 11:40
PROVIDERS: PCP Internal Medicine; Visit Provider Physician Assistant Surgical
DX: E66.9 Obesity, unspecified (principal)
CPT/HCPCS: 99213

== ENCOUNTER → 2023-12-04 11:40 | Outpatient (BNVA) | payer OTHER, SELFPAY | PROVIDERS: PCP Internal Medicine; Visit Provider Physician Assistant Surgical | DX: E66.9 Obesity, unspecified (principal) ==

== ENCOUNTER 2024-01-08 10:23 | Outpatient (AMB) | payer OTHER, SELFPAY ==
--- NOTE | 2024-01-08 08:04 | MHC.OFFVISWM ---
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 Allergies codeine [CODEINE] Allergy (Intermediate, Verified 04/06/23 15:41) HIVES, rash hydrocodone [From VICODIN] Allergy (Intermediate, Verified 04/06/23 15:41) HIVES shellfish derived Allergy (Intermediate, Verified 04/06/23 15:41) swollen Medication List - Last Reconciled 01/08/24 by TYLER Rogers bisacodyl (Dulcolax (bisacodyl)) 10 mg [place] DAILY PRN buspirone 5 mg PO BID clonazepam 1 mg PO BID clotrimazole 1% (Antifungal (clotrimazole)) 1 appl topical BID PRN docusate sodium (Colace) 100 mg PO .prn infliximab (Remicade) IV Q8W inulin 2 grams PO DAILY levothyroxine 75 mcg PO DAILY mirtazapine (Remeron) 15 mg PO BEDTIME PRN mwgeraznkxxs-atl-zoxx-FA-vit K 45 mg iron- 800 mcg-120 mcg (Bariatric Multivitamins) 1 cap PO DAILY oxycodone 10 mg PO BID PRN sennosides (senna) 17.2 mg (2 x 8.6 mg) PO BEDTIME PRN 90 days HPI Comments Details: Patient is a pleasant 48-year-old female who returns to the office today in follow-up. She is status post panniculectomy on 12/12/2022 and sleeve gastrectomy on 08/25/2020. The panniculectomy was performed by Dr. Philippe and the sleeve gastrectomy was performed by Dr. Freeman. She states that her weight today is 191.4 lb corresponding to a BMI of 32.9. Doing bariatric fusion multi vitamin Also complaining of excess skin of bilateral thighs, causing rubbing and discomfort with clothing. She has had intermittent rash in the groin that improves with clotrimazole cream. She has been having intermittent constipation and is followed by gastroenterology for her underlying Crohn's disease. Had L5 laminoplasty surgery 11/02/23- spine surgery - dr geovanni NE[facility], still sore and not back to work or able to exercise. F/U 12/13/23, told that they hit a nerve and was sent to PT and is doing exercise there and not allowed to do other exercise. Continues with difficulty turning neck and not allowed to drive. Next f/u 01/29/24. Continues very painful even to walk around. She states she has been using premier protein powder 1 scoop in 8 oz water 2 shakes, one bar and a meal Meal plan: Using Premier protein ready to drink shakes, 7-9 half the premier protein shake mixed with 6 oz of unsweetened almond milk 11-1 built bar 2-4 the other half of the shake 6pm, meal with 6 forks of protein and 6 forks of vegetables. Drinking 32 oz of water daily. Exercise plan: none now. [facility] Medical History Intestinal malabsorption following gastrectomy Wears partial dentures Lab test negative for COVID-19 virus Shortness of breath Obesity (BMI 30-39.9) Obstructive sleep apnea Chronic back pain DDD (degenerative disc disease) Hypothyroidism Depression Anxiety Crohn's disease Type II diabetes mellitus Surgical History S/P placement of nerve stimulator History of sleeve gastrectomy History of bilateral tubal ligation History of fusion of cervical spine Other specified postprocedural states History of Achilles tendon repair History of section History of laparoscopic cholecystectomy Family History Father No problems noted. Mother Diabetes mellitus Brother No problems noted. Brother No problems noted. Brother No problems noted. Brother No problems noted. Brother No problems noted. Sister Type I diabetes mellitus Sister No problems noted. Son No problems noted. Son No problems noted. Son No problems noted. Daughter No problems noted. Daughter No problems noted. Social History Household Members: Significant Other Housing: House Are you a primary childcare worker to a significant other at home: No Do you presently have visiting nurse or other home services: No Alcohol intake: never Comment: sleeping Patient Tobacco Use Status: Never used Tobacco Advance Directives Date on File: 08/15/16 service: No Current occupational status: employed Physical Exam Vital Signs: BMI result Body Mass Index 32.9 Telehealth Telehealth Telehealth Platform: Telephone Location of provider rendering services: practice address Location of patient: address on file Patient Identification confirmed using: Name, : Yes Telehealth method: voice only Patient verbally consented to treatment: Yes Patient verbally consented to billing insurance company: Yes Patient informed of any privacy concerns related to visit: Yes Minutes spent on Phone/Video with Pt.: 15 Assessment & Plan Assessment & Plan (1) Obesity: Code(s): E66.9 - Obesity, unspecified Category: Medical Plan: Patient has been unable to exercise since her laminectomy. She continues to have ongoing pain and difficulty with mobility. She is undergoing intensive physical therapy. Next follow-up with spine surgery is mid January. We will arrange for her to return to our office at the beginning of February. She has been encouraged to continue to follow the meal plan as best that she is able. Discussed possibly asking if she is able to walk in a pool or use a recumbent bike.
[2024-01-08 08:05] VITALS: BMI 32.9
== END 2024-01-08 10:24 | disposition home or self-care (01) ==
LOC: HO.HBS 10:23
PROVIDERS: PCP Internal Medicine; Visit Provider Physician Assistant Surgical
DX: E66.9 Obesity, unspecified (principal)
CPT/HCPCS: 99213

== ENCOUNTER → 2024-01-08 10:23 | Outpatient (BNVA) | payer OTHER, SELFPAY | PROVIDERS: PCP Internal Medicine; Visit Provider Physician Assistant Surgical ==

== ENCOUNTER 2024-02-26 09:37 | Outpatient (AMB) | payer OTHER, SELFPAY ==
--- NOTE | 2024-02-26 09:24 | A.OFFVIS_ITS ---
VS Expanded 02/26/24 10:21 Height 5 ft 4 in Weight 191 lb 8 oz BMI 32.9 Intake Visit Reasons: (TV) PO LSG 08/25/20 Allergies codeine [CODEINE] Allergy (Intermediate, Verified 04/06/23 15:41) HIVES, rash hydrocodone [From VICODIN] Allergy (Intermediate, Verified 04/06/23 15:41) HIVES shellfish derived Allergy (Intermediate, Verified 04/06/23 15:41) swollen HPI Comments Details: Patient is a pleasant 48-year-old female who returns to the office today in follow-up. She is status post panniculectomy on 12/12/2022 and sleeve gastrectomy on 08/25/2020. The panniculectomy was performed by Dr. Philippe and the sleeve gastrectomy was performed by Dr. Freeman. She states that her weight today is 191.8 lb corresponding to a BMI of 32.9. Doing bariatric fusion multi vitamin Also complaining of excess skin of bilateral thighs, causing rubbing and discomfort with clothing. She has had intermittent rash in the groin that improves with clotrimazole cream. She has been having intermittent constipation and is followed by gastroenterology, Dr Thorne for her underlying Crohn's disease. Colonoscopy sunday and endometriosis bx and bladder sling yesterday. Had L5 laminoplasty surgery 11/02/23- spine surgery - dr geovanni TIER[place], still sore and not back to work or able to exercise. F/U 12/13/23, told that they hit a nerve and was sent to PT and is doing exercise there and not allowed to do other exercise. Continues with difficulty turning neck and not allowed to drive. f/u 01/29/24 and now able to go in the pool, but not yet returned to exercise. She states she has been using [employer] RTD 30 gm shake 2 shakes, one bar and a meal Meal plan: Using [employer], 30 gm ready to drink shakes, 7-9 half the shake mixed with 6 oz of water 11-1 built bar 2-4 the other half of the shake 6pm, meal with 6 forks of protein and 6 forks of vegetables. Drinking 40 oz of water daily. Exercise plan: none now. [facility] Medical History Intestinal malabsorption following gastrectomy Wears partial dentures Lab test negative for COVID-19 virus Shortness of breath Obesity (BMI 30-39.9) Obstructive sleep apnea Chronic back pain DDD (degenerative disc disease) Hypothyroidism Depression Anxiety Crohn's disease Type II diabetes mellitus Surgical History S/P placement of nerve stimulator History of sleeve gastrectomy History of bilateral tubal ligation History of fusion of cervical spine Other specified postprocedural states History of Achilles tendon repair History of section History of laparoscopic cholecystectomy Family History Father No problems noted. Mother Diabetes mellitus Brother No problems noted. Brother No problems noted. Brother No problems noted. Brother No problems noted. Brother No problems noted. Sister Type I diabetes mellitus Sister No problems noted. Son No problems noted. Son No problems noted. Son No problems noted. Daughter No problems noted. Daughter No problems noted. Social History Household Members: Significant Other Housing: House Are you a primary career guidance technician to a significant other at home: No Do you presently have visiting nurse or other home services: No Alcohol intake: never Comment: sleeping Patient Tobacco Use Status: Never used Tobacco Advance Directives Date on File: 08/15/16 service: No Current occupational status: employed Telehealth Telehealth Telehealth Platform: Telephone Location of provider rendering services: practice address Location of patient: address on file Patient Identification confirmed using: Name, : Yes Telehealth method: voice only Patient verbally consented to treatment: Yes Patient verbally consented to billing insurance company: Yes Patient informed of any privacy concerns related to visit: Yes Minutes spent on Phone/Video with Pt.: 12 Assessment & Plan Assessment & Plan (1) S/P laparoscopic sleeve gastrectomy: Code(s): Z98.84 - Bariatric surgery status Category: Surgical Plan: Encouraged to return to exercises she is able. She will continue her meal plan and return to the office in 4-6 weeks. Encouraged to text with any questions or concerns.
[2024-02-26 10:21] VITALS: BMI 32.9
== END 2024-02-26 10:21 | disposition home or self-care (01) ==
LOC: HO.HBS 09:37
PROVIDERS: PCP Internal Medicine; Visit Provider Physician Assistant Surgical
DX: E66.9 Obesity, unspecified (principal); Z68.32 Body mass index [BMI] 32.0-32.9, adult; Z90.3 Acquired absence of stomach [part of]; Z98.84 Bariatric surgery status
CPT/HCPCS: 99213

== ENCOUNTER → 2024-02-26 09:37 | Outpatient (BNVA) | payer OTHER, SELFPAY | PROVIDERS: PCP Internal Medicine; Visit Provider Physician Assistant Surgical ==

== ENCOUNTER 2024-04-01 13:11 | Outpatient (AMB) | payer OTHER, SELFPAY ==
[2024-04-01 08:21] VITALS: BMI 32.3
--- NOTE | 2024-04-01 08:21 | A.OFFVIS_ITS ---
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 Allergies codeine [CODEINE] Allergy (Intermediate, Verified 04/06/23 15:41) HIVES, rash hydrocodone [From VICODIN] Allergy (Intermediate, Verified 04/06/23 15:41) HIVES shellfish derived Allergy (Intermediate, Verified 04/06/23 15:41) swollen Medication List - Last Reconciled 04/01/24 by TYLER Rogers bisacodyl (Dulcolax (bisacodyl)) 10 mg [place] DAILY PRN buspirone 5 mg PO BID clonazepam 1 mg PO BID clotrimazole 1% (Antifungal (clotrimazole)) 1 appl topical BID PRN docusate sodium (Colace) 100 mg PO .prn infliximab (Remicade) IV Q8W inulin 2 grams PO DAILY levothyroxine 75 mcg PO DAILY mirtazapine (Remeron) 15 mg PO BEDTIME PRN ladebqziceau-qsy-iphg-FA-vit K 45 mg iron- 800 mcg-120 mcg (Bariatric Multivitamins) 1 cap PO DAILY oxycodone 10 mg PO BID PRN sennosides (senna) 17.2 mg (2 x 8.6 mg) PO BEDTIME PRN 90 days HPI Comments Details: Patient is a pleasant 48-year-old female who returns to the office today in follow-up. She is status post panniculectomy on 12/12/2022 and sleeve gastrectomy on 08/25/2020. The panniculectomy was performed by Dr. Philippe and the sleeve gastrectomy was performed by Dr. Freeman. She states that her weight today is 188 lb corresponding to a BMI of 32.5. Doing bariatric fusion multi vitamin Also complaining of excess skin of bilateral thighs, causing rubbing and discomfort with clothing. She has had intermittent rash in the groin that improves with clotrimazole cream. She has been having intermittent constipation and is followed by gastroenterology, Dr Thorne for her underlying Crohn's disease. Colonoscopy mikayla and endometriosis bx and bladder sling yesterday. Had L5 laminoplasty surgery 11/02/23- spine surgery - dr geovanni TIER[place], still sore and not back to work or able to exercise. F/U 12/13/23, told that they hit a nerve and was sent to PT and is doing exercise there and not allowed to do other exercise. Continues with difficulty turning neck and not allowed to drive. f/u 01/29/24 and now able to go in the pool, may take 6-12 months to heal. Next f/u April. She is able to use recumbent bike. She has also returned to work. She states she has been using [employer] RTD 30 gm shake 2 shakes, one bar and a meal Meal plan: Using [employer], 30 gm ready to drink shakes, 7-9 half the shake mixed with 6 oz of water 11-1 built bar 2-4 the other half of the shake 6pm, meal with 6 forks of protein and 6 forks of vegetables. Drinking 64 oz of water daily. Exercise plan: recumbent bike, 3 x per week, 350-450 darrick. [facility] Medical History Intestinal malabsorption following gastrectomy Wears partial dentures Lab test negative for COVID-19 virus Shortness of breath Obesity (BMI 30-39.9) Obstructive sleep apnea Chronic back pain DDD (degenerative disc disease) Hypothyroidism Depression Anxiety Crohn's disease Type II diabetes mellitus Surgical History S/P placement of nerve stimulator History of sleeve gastrectomy History of bilateral tubal ligation History of fusion of cervical spine Other specified postprocedural states History of Achilles tendon repair History of section History of laparoscopic cholecystectomy Family History Father No problems noted. Mother Diabetes mellitus Brother No problems noted. Brother No problems noted. Brother No problems noted. Brother No problems noted. Brother No problems noted. Sister Type I diabetes mellitus Sister No problems noted. Son No problems noted. Son No problems noted. Son No problems noted. Daughter No problems noted. Daughter No problems noted. Social History Household Members: Significant Other Housing: House Are you a primary hiv/aids care nurse to a significant other at home: No Do you presently have visiting nurse or other home services: No Alcohol intake: never Comment: sleeping Patient Tobacco Use Status: Never used Tobacco Advance Directives Date on File: 08/15/16 service: No Current occupational status: employed Physical Exam Vital Signs: BMI result Body Mass Index 32.3 Telehealth Telehealth Telehealth Platform: Telephone Location of provider rendering services: practice address Location of patient: address on file Patient Identification confirmed using: Name, : Yes Telehealth method: voice only Patient verbally consented to treatment: Yes Patient verbally consented to billing insurance company: Yes Patient informed of any privacy concerns related to visit: Yes Minutes spent on Phone/Video with Pt.: 12 Assessment & Plan Assessment & Plan (1) S/P laparoscopic sleeve gastrectomy: Code(s): Z98.84 - Bariatric surgery status Category: Surgical Plan: Patient is making slow but steady progress. She has had a significant setback with her back surgery. Encouraged to continue to follow the meal plan accurately but increase her exercise. This is seemingly the area that may use the most improvement. Recommend increasing calories burned and days at the gym to help her achieve her goal. Encouraged to continue to communicate by text. Return to clinic 2 months
== END 2024-04-01 13:12 | disposition home or self-care (01) ==
LOC: HO.HBS 13:11
PROVIDERS: PCP Internal Medicine; Visit Provider Physician Assistant Surgical
DX: E66.09 Other obesity due to excess calories (principal); Z68.32 Body mass index [BMI] 32.0-32.9, adult; Z90.3 Acquired absence of stomach [part of]; Z98.84 Bariatric surgery status
CPT/HCPCS: 99213

== ENCOUNTER → 2024-04-01 13:11 | Outpatient (BNVA) | payer OTHER, SELFPAY | PROVIDERS: PCP Internal Medicine; Visit Provider Physician Assistant Surgical | DX: Z98.84 Bariatric surgery status (principal) ==

== ENCOUNTER 2024-06-05 15:30 | Outpatient (AMB) | payer OTHER, SELFPAY ==
--- NOTE | 2024-06-05 15:32 | A.OFFVIS_ITS ---
VS Expanded 06/05/24 15:33 Height 5 ft 4 in Weight 187 lb 4 oz BMI 32.1 Intake Visit Reasons: (TV) PO LSG 08/25/20 Chiropractic Doctor Required: No Allergies codeine [CODEINE] Allergy (Intermediate, Verified 04/06/23 15:41) HIVES, rash hydrocodone [From VICODIN] Allergy (Intermediate, Verified 04/06/23 15:41) HIVES shellfish derived Allergy (Intermediate, Verified 04/06/23 15:41) swollen Medication List - Last Reconciled 06/05/24 by TYLER Rogers bisacodyl (Dulcolax (bisacodyl)) 10 mg [place] DAILY PRN bupropion HCl XL (Wellbutrin XL) 300 mg PO QAM buspirone 10 mg PO TID clonazepam 1 mg PO BID PRN clotrimazole 1% (Antifungal (clotrimazole)) 1 appl topical BID PRN docusate sodium (Colace) 100 mg PO .prn infliximab (Remicade) IV Q8W inulin 2 grams PO DAILY levothyroxine 75 mcg PO DAILY mirtazapine (Remeron) 15 mg PO BEDTIME ijkczifmworo-bbn-gojq-FA-vit K 45 mg iron- 800 mcg-120 mcg (Bariatric Multivitamins) 1 cap PO DAILY oxycodone 10 mg PO BID PRN sennosides (senna) 17.2 mg (2 x 8.6 mg) PO BEDTIME PRN 90 days HPI Comments Details: Patient is a pleasant 48-year-old female who returns to the office today in follow-up. She is status post panniculectomy on 12/12/2022 and sleeve gastrectomy on 08/25/2020. The panniculectomy was performed by Dr. Philippe and the sleeve gastrectomy was performed by Dr. Freeman. She states that her weight today is 187.4 lb corresponding to a BMI of 32.1. Doing bariatric fusion multi vitamin Also complaining of excess skin of bilateral thighs, causing rubbing and discomfort with clothing. She has had intermittent rash in the groin that improves with clotrimazole cream. She has been having intermittent constipation and is followed by gastroenterology, Dr Thorne for her underlying Crohn's disease. Colonoscopy sunday and endometriosis bx and bladder sling yesterday. Had L5 laminoplasty surgery 2/16/24- spine surgery - dr geovanni TIERNEY, still sore and not back to work or able to exercise. F/U 12/13/23, told that they hit a nerve and was sent to PT and is doing exercise there and not allowed to do other exercise. Continues with difficulty turning neck and not allowed to drive. f/u 01/29/24 and now able to go in the pool, may take 6-12 months to heal. F/u April, may take a year for full recovery. She is able to use recumbent bike. She states that she was seen by her mental health therapist approximately 3 weeks ago at which time BuSpar was increased to 10 mg 3 times a day and Wellbutrin 300 mg daily was added. She states that since that time, she has had a very significant lack of appetite. Feels as though she is only able to get in 1 shake per day at most. She states that she will call her mental health therapist who prescribed the Wellbutrin and increase the BuSpar today to discuss plan. She states she has been using [employer] RTD 30 gm shake Meal plan: Using [employer], 30 gm ready to drink shakes, 7-9 half the shake mixed with 6 oz of water 11-1 built bar 2-4 the other half of the shake 6pm, meal with 6 forks of protein and 6 forks of vegetables. Drinking 64 oz of water daily. Exercise plan: recumbent bike, 3 x per week, 350-450 darrick. [facility] Medical History Intestinal malabsorption following gastrectomy Wears partial dentures Lab test negative for COVID-19 virus Shortness of breath Obesity (BMI 30-39.9) Obstructive sleep apnea Chronic back pain DDD (degenerative disc disease) Hypothyroidism Depression Anxiety Crohn's disease Type II diabetes mellitus Surgical History S/P placement of nerve stimulator History of sleeve gastrectomy History of bilateral tubal ligation History of fusion of cervical spine Other specified postprocedural states History of Achilles tendon repair History of section History of laparoscopic cholecystectomy Family History Father No problems noted. Mother Diabetes mellitus Brother No problems noted. Brother No problems noted. Brother No problems noted. Brother No problems noted. Brother No problems noted. Sister Type I diabetes mellitus Sister No problems noted. Son No problems noted. Son No problems noted. Son No problems noted. Daughter No problems noted. Daughter No problems noted. Social History Household Members: Significant Other Housing: House Are you a primary hospice spiritual care coordinator to a significant other at home: No Do you presently have visiting nurse or other home services: No Alcohol intake: never Comment: sleeping Patient Tobacco Use Status: Never used Tobacco Advance Directives Date on File: 08/15/16 service: No Current occupational status: employed Telehealth Telehealth Telehealth Platform: Telephone Location of provider rendering services: practice address Location of patient: address on file Patient Identification confirmed using: Name, : Yes Telehealth method: voice only Patient verbally consented to treatment: Yes Patient verbally consented to billing insurance company: Yes Patient informed of any privacy concerns related to visit: Yes Minutes spent on Phone/Video with Pt.: 15 Assessment & Plan Assessment & Plan (1) S/P laparoscopic sleeve gastrectomy: Code(s): Z98.84 - Bariatric surgery status Category: Surgical Plan: Patient is making slow progress. She is having a significant reduction in appetite due to addition of Wellbutrin and increase of BuSpar from her primary mental health provider. States that she will call her mental health provider to discuss what to do. Prior to the adjustments approximately 3 weeks ago, patient was doing very well and had no decreased appetite. She does know her meal plan that she is supposed to be doing. Recommendation is to resume the plan as previous additionally continue exercises she is able as she continues to recover from her back surgery. We will have her return to the office in approximately 3-4 weeks
[2024-06-05 15:33] VITALS: BMI 32.1
== END 2024-06-05 15:53 | disposition home or self-care (01) ==
LOC: HO.HBS 15:43
PROVIDERS: PCP Internal Medicine; Visit Provider Physician Assistant Surgical
DX: E66.09 Other obesity due to excess calories (principal); Z68.32 Body mass index [BMI] 32.0-32.9, adult; Z90.3 Acquired absence of stomach [part of]; Z98.84 Bariatric surgery status
CPT/HCPCS: 99213

== ENCOUNTER → 2024-06-05 15:30 | Outpatient (BNVA) | payer OTHER, SELFPAY | PROVIDERS: PCP Internal Medicine; Visit Provider Physician Assistant Surgical ==

== ENCOUNTER 2024-07-14 15:00 | Outpatient (AMB) | payer OTHER, SELFPAY ==
--- NOTE | 2024-07-14 09:16 | A.OFFVIS_ITS ---
VS Expanded 07/14/24 09:17 Height 5 ft 4 in Weight 192 lb 6 oz BMI 33.0 Intake Visit Reasons: (TV) PO LSG 08/25/20 Allergies codeine [CODEINE] Allergy (Intermediate, Verified 04/06/23 15:41) HIVES, rash hydrocodone [From VICODIN] Allergy (Intermediate, Verified 04/06/23 15:41) HIVES shellfish derived Allergy (Intermediate, Verified 04/06/23 15:41) swollen HPI Comments Details: Patient is a pleasant 48-year-old female who returns to the office today in follow-up. She is status post panniculectomy on 12/12/2022 and sleeve gastrectomy on 08/25/2020. The panniculectomy was performed by Dr. Philippe and the sleeve gastrectomy was performed by Dr. Freeman. She states that her weight today is 192.6 lb corresponding to a BMI of 33. Doing bariatric fusion multi vitamin Also complaining of excess skin of bilateral thighs, causing rubbing and discomfort with clothing. She has had intermittent rash in the groin that improves with clotrimazole cream. She has been having intermittent constipation and is followed by gastroenterology, Dr Thorne for her underlying Crohn's disease. Colonoscopy sunday and endometriosis bx and bladder sling yesterday. Had L5 laminoplasty surgery 11/02/23- spine surgery - dr geovanni TIERNEY, still sore and not back to work or able to exercise. F/U 12/13/23, told that they hit a nerve and was sent to PT and is doing exercise there and not allowed to do other exercise. Continues with difficulty turning neck and not allowed to drive. f/u 01/29/24 and now able to go in the pool, may take 6-12 months to heal. F/u April, states may take a year for full recovery. She is able to use recumbent bike. She states she has been using [employer] RTD 30 gm shake. She does not know why she is gaining weight, not following the meal plan exactly, cottage cheese w strawberries at home. Having 8 forks of protein, no vegetables. Meal plan: Using [employer], 30 gm ready to drink shakes, 7-9 half the shake mixed with 6 oz of water 11-1 built bar 2-4 the other half of the shake 6pm, meal with 6 forks of protein and 6 forks of vegetables. Drinking 64 oz of water daily. Exercise plan: recumbent bike at the gym, 3 x per week, 200 darrick. [facility] Medical History Intestinal malabsorption following gastrectomy Wears partial dentures Lab test negative for COVID-19 virus Shortness of breath Obesity (BMI 30-39.9) Obstructive sleep apnea Chronic back pain DDD (degenerative disc disease) Hypothyroidism Depression Anxiety Crohn's disease Type II diabetes mellitus Surgical History S/P placement of nerve stimulator History of sleeve gastrectomy History of bilateral tubal ligation History of fusion of cervical spine Other specified postprocedural states History of Achilles tendon repair History of section History of laparoscopic cholecystectomy Family History Father No problems noted. Mother Diabetes mellitus Brother No problems noted. Brother No problems noted. Brother No problems noted. Brother No problems noted. Brother No problems noted. Sister Type I diabetes mellitus Sister No problems noted. Son No problems noted. Son No problems noted. Son No problems noted. Daughter No problems noted. Daughter No problems noted. Social History Household Members: Significant Other Housing: House Are you a primary congregational care pastor to a significant other at home: No Do you presently have visiting nurse or other home services: No Alcohol intake: never Comment: sleeping Patient Tobacco Use Status: Never used Tobacco Advance Directives Date on File: 08/15/16 service: No Current occupational status: employed Telehealth Telehealth Telehealth Platform: Telephone Location of provider rendering services: practice address Location of patient: other Patient Identification confirmed using: Name, : Yes Telehealth method: voice only Patient verbally consented to treatment: Yes Patient verbally consented to billing insurance company: Yes Patient informed of any privacy concerns related to visit: Yes Minutes spent on Phone/Video with Pt.: 15 Assessment & Plan Assessment & Plan (1) S/P laparoscopic sleeve gastrectomy: Code(s): Z98.84 - Bariatric surgery status Category: Surgical Plan: Discussed the importance of following the meal plan exactly. Discussed this as a barrier to her success, discussed the importance of having her shakes and bar at the appropriate time. Encouraged to use the recumbent bike on a daily basis with a goal of burning 300 calories per day or 2000 calories per week. Discipline and consistency are critical to her success. We will have her return to the office in August for her 4 year follow-up, check labs at that time. Encouraged to text weekly and with any questions or concerns.
[2024-07-14 09:17] VITALS: BMI 33.0
== END 2024-07-14 15:18 | disposition home or self-care (01) ==
LOC: HO.HBS 15:12
PROVIDERS: PCP Internal Medicine; Visit Provider Physician Assistant Surgical
DX: E66.811 Obesity, class 1 (principal); Z68.33 Body mass index [BMI] 33.0-33.9, adult; Z90.3 Acquired absence of stomach [part of]; Z98.84 Bariatric surgery status
CPT/HCPCS: 99213; G2211

== ENCOUNTER → 2024-07-14 15:00 | Outpatient (BNVA) | payer OTHER, SELFPAY | PROVIDERS: PCP Internal Medicine; Visit Provider Physician Assistant Surgical ==

== ENCOUNTER 2024-08-16 12:23 | Emergency (ER) | payer OTHER, SELFPAY ==
[2024-08-16] VITALS (9 sets, daily range): BP systolic 121–154; BP diastolic 67–89; PULSE 73–93; RESP 18–28; TEMP 36.3–36.8; O2SAT 94–97; BMI 32.0
--- NOTE | ~2024-08-16 | XR_ITS ---
EXAMINATION: XR CHEST CLINICAL INFORMATION: cough COMPARISON: 12/16/2020 and 01/29/2020 TECHNIQUE: AP portable upright view of the chest was obtained. FINDINGS: Lung volumes are preserved. No consolidation, effusion or pneumothorax. Stable heart and mediastinum. No mass, adenopathy or pulmonary edema. Nonobstructive gas pattern. Prior cholecystectomy. Prior cervical fusion. Spinal hardware again noted. XR/XR chest 1V IMPRESSION: Acute cardiopulmonary process. Electronically signed by: Brian Mcmanus MD 08/16/2024 01:56 PM EST
--- NOTE | 2024-08-16 12:28 | ECG_ITS ---
Test Reason : SOB Blood Pressure : / mmHG Vent. Rate : 083 BPM Atrial Rate : 083 BPM P-R Int : 142 ms QRS Dur : 096 ms QT Int : 394 ms P-R-T Axes : 058 083 059 degrees QTc Int : 462 ms Normal sinus rhythm Normal ECG When compared with ECG of 16-DEC-2020 14:09, Vent. rate has increased BY 29 BPM Questionable change in QRS axis Referred By: Michelle Flynn Electronically Signed By:THEE DIANA
--- NOTE | 2024-08-16 12:28 | ED_ITS ---
HPI - SOB/Dyspnea General Chief Complaint: Dyspnea Stated Complaint: Diff Breathing Cough Etc Time Seen by Provider: 08/16/24 12:33 Source: patient and old records reviewed Mode of arrival: ambulatory Limitations: no limitations History of Present Illness ED Provider: CHACHA ALVAREZ Narrative: 48 yo female with PMH of MUNA, DDD, hypothyroidism, depression, anxiety, T2DM, Crohns - on Remicaide, sleeve gastrectomy, here with c/o increased dyspnea last night with dry cough and wheezing. She notes pain in R ribs with coughing. NO smoking, smoke exposures, travel, sputum production, sick contacts. No hx of any reactive airway disease or inhaler use in her life. No leg swelling. She states she has never wheezed before but comes to the ED with audible exp wheezes MD elicited complaint: shortness of breath and cough Onset (ago): day(s) (1) Timing: progressively worsening Severity: moderate Exacerbating factors: exertion, movement and coughing Relieving factors: rest Associated symptoms: cough and wheezing Treatment prior to arrival: none Related Data Home Medications ?Medication ?Instructions ?Recorded ?Confirmed infliximab 100 mg intravenous IV Q8W 07/08/20 06/05/24 solution (Remicade) levothyroxine 75 mcg tablet 75 mcg PO DAILY 07/08/20 06/05/24 oxycodone 10 mg tablet 10 mg PO BID PRN pain 08/25/20 06/05/24 gohdhrow-xwsfphuo-rusw 45 mg-folic 1 cap PO DAILY 11/18/20 06/05/24 acid 800 mcg-vit K 120 mcg capsule (Bariatric Multivitamins) bupropion HCl 300 mg 24 hr tablet, 300 mg PO QAM 06/05/24 06/05/24 extended release (Wellbutrin XL) buspirone 5 mg tablet 10 mg PO TID 06/05/24 06/05/24 clonazepam 1 mg tablet 1 mg PO BID PRN 06/05/24 06/05/24 mirtazapine 15 mg tablet (Remeron) 15 mg PO BEDTIME insomnia 06/05/24 06/05/24 Previous Rx's ?Medication ?Instructions ?Recorded inulin 2 gram chewable tablet 2 g PO DAILY #90 tabs 10/31/22 bisacodyl 10 mg rectal suppository 10 mg ID DAILY PRN constipation 04/06/23 (Dulcolax (bisacodyl)) #12 ea sennosides 8.6 mg tablet (senna) 17.2 mg (2 x 8.6 mg) PO BEDTIME 04/06/23 PRN constipation 90 days #180 tabs docusate sodium 100 mg capsule 100 mg PO .prn #90 caps 04/16/23 (Colace) clotrimazole 1 % topical cream 1 appl topical BID PRN Rash #45 11/26/23 (Antifungal (clotrimazole)) grams albuterol sulfate 90 mcg/actuation 2 puff inhalation QID PRN 08/16/24 aerosol inhaler shortness of breath or wheezing #6.7 grams azithromycin 250 mg tablet See Rx Instructions PO .COMPLEX #6 08/16/24 tabs famotidine 20 mg tablet (Pepcid) 20 mg PO DAILY #10 tabs 08/16/24 prednisone 20 mg tablet 40 mg (2 x 20 mg) PO DAILY 5 days 08/16/24 #10 tabs Allergies Allergy/AdvReac Type Severity Reaction Status Date / Time codeine [CODEINE] Allergy Intermediate HIVES, rash Verified 08/16/24 12:29 hydrocodone [From VICODIN] Allergy Intermediate HIVES Verified 08/16/24 12:29 shellfish derived Allergy Intermediate swollen Verified 08/16/24 12:29 Review of Systems 2 Review of Systems: Constitutional : No Fever, No Chills ENT/Mouth : No Hoarseness, No sore throat, No Rhinorrhea Eyes: No Redness, No Discharge, No Vision Changes Cardiovascular : No Chest Pain, positive SOB, positive Dyspnea on Exertion, No Edema Respiratory : positive Cough, No Sputum, positive Wheezing, Gastrointestinal : No Nausea, No Vomiting, No Diarrhea, No abdominal Pain Genitourinary : No Dysuria, No Hematuria Musculoskeletal : No joint pain, No Myalgias Skin : No rash Neuro : No Weakness, No Numbness, No Headache Psych : No anxiety, depression Heme/Lymph: No Bruising, No Bleeding Endocrine : No Polyuria, No Polydipsia All other systems reviewed and are negative PMFSH Past Medical History Attestation statement: The following information was validated with the patient. Source: old records reviewed Medical History Intestinal malabsorption following gastrectomy Wears partial dentures Lab test negative for COVID-19 virus Shortness of breath Obesity (BMI 30-39.9) Obstructive sleep apnea Chronic back pain DDD (degenerative disc disease) Hypothyroidism Depression Anxiety Crohn's disease Type II diabetes mellitus Surgical History S/P placement of nerve stimulator History of sleeve gastrectomy History of bilateral tubal ligation History of fusion of cervical spine Other specified postprocedural states History of Achilles tendon repair History of section History of laparoscopic cholecystectomy Family History Family History Father No problems noted. Mother Diabetes mellitus Brother No problems noted. Brother No problems noted. Brother No problems noted. Brother No problems noted. Brother No problems noted. Sister Type I diabetes mellitus Sister No problems noted. Son No problems noted. Son No problems noted. Son No problems noted. Daughter No problems noted. Daughter No problems noted. Social History Social History Household Members: Significant Other Housing: House Are you a primary care tech to a significant other at home: No Do you presently have visiting nurse or other home services: No Alcohol intake: never Comment: sleeping Patient Tobacco Use Status: Never used Tobacco Smoked in Last 30 Days: No Use of substances other than those prescribed or required for medical reasons: No Advance Directives: Yes Advance Directives Information Provided: No Advance Directives on File: No Advance Directives Date on File: 08/15/16 Do you have a plan to hurt others: No Plan Patient : No service: No Current occupational status: employed Physical Exam 2 Vital Signs: Vital Signs: Last Vital Signs Temp 98.3 F 08/16/24 15:58 Pulse 93 08/16/24 15:58 Resp 20 08/16/24 15:58 BP 122/67 08/16/24 15:58 Pulse Ox 94 08/16/24 15:58 O2 Del Method Room Air 08/16/24 15:58 BMI result Body Mass Index 32.0 Appearance: Alert. Oriented X3. Mild acute distress. Eyes: Pupils equal, round and reactive to light. ENT: Pharynx normal. Neck: Normal inspection. Neck supple. CVS: Normal heart rate and rhythm. Pulses normal. Respiratory: Mild respiratory distress tachypnea and labored. Breath sounds diffuse exp wheezes throughout Abdomen: Soft and nontender. Skin: Skin warm and dry. Normal skin color. Normal skin turgor. Extremities: No lower extremity edema. No calf ttp Neuro: Oriented X 3. No motor deficit. No sensory deficit. Course Course Course Narrative: This is a Rapid Medical Examination (RME) performed by Kaylin Flynn PA-C in triage. Full HPI, ROS, assessment and treatment plan per primary provider in the Main ED. 48 yo female here for eval of cough and sob x last night. denies hx of asthma/ copd/ CHF. no sick contatcs. + satting 96% on RA. increased effort of breathing. expiratory wheezes. Plan: labs, cxr, ekg, viral swabs Reevaluation(s) Reevaluation #1: improved with neb Reevaluation #2: lactic acidosis due to nebs and not infection or severe sepsis Reevaluation #3: patient is improving at this time repeat neb ordered Additional Reevaluation(s): lactic acid is albuterol induced Medications Administered Discontinued Medications Generic Name Dose Route Start Last Admin Trade Name Freq PRN Reason Stop Dose Admin Albuterol Sulfate 2 puff 08/16/24 15:13 08/16/24 15:34 Albuterol Sulfate 90 Mcg 8 Gm Inhaler INHALE 08/16/24 15:14 2 puff ONCE ONE Administration Albuterol Sulfate 2.5 mg/ 0 mg 08/16/24 12:40 08/16/24 12:49 Albuterol/Ipratropium 3 ml INHALE 08/16/24 12:41 1 dose ONCE ONE Administration Albuterol Sulfate 2.5 mg/ 0 mg 08/16/24 14:24 08/16/24 14:24 Albuterol/Ipratropium 3 ml INHALE 08/16/24 14:25 1 dose ONCE ONE Administration Magnesium Sulfate 2 gm in 50 mls @ 150 mls/hr 08/16/24 12:32 08/16/24 14:22 Magnesium Sulfate/H2o IV 08/16/24 12:51 Infused ONCE ONE Infusion Lactated Ringer's 1,000 mls @ 999 mls/hr 08/16/24 13:35 08/16/24 14:22 Lr IV 08/16/24 14:35 999 mls/hr .Q1H1M ONE Administration Methylprednisolone Sodium Succinate 60 mg 08/16/24 12:32 08/16/24 12:56 Methylprednisolone Sod Succ 125 Mg/2 Ml Vial IVPUSH 08/16/24 12:33 60 mg ONCE ONE Administration Potassium Chloride 40 meq 08/16/24 13:36 08/16/24 14:23 Potassium Chloride Er 20 Meq Tab.Er.Prt PO 08/16/24 13:37 40 meq ONCE ONE Administration Medical Decision Making Medical Decision Making MDM Narrative: 48 yo female with PMH of MUNA, DDD, hypothyroidism, depression, anxiety, T2DM, Crohns - on Remicaide, sleeve gastrectomy, here with c/o dry cough and exp wheezes since starting to feel dyspnea yesterday she denies any exposures no sick contacts and has never smoked. At this time labs, EKG, IV steroids, magnesium, nebs and CXR. Possible URI, bronchitis, reactive airway ds, pneumonitis. Differential Diagnosis Differential Diagnoses: The differential diagnosis associated with the presentation includes URI, bronchitis, wheezing, asthma Admission/Observation Consideration of admission/observation: Escalation of care including admission/observation considered O2 ambulation trial 97% anticipate DC home Lab Data [facility] Lab Attestation statement: I reviewed the patient's lab results. 08/16/24 13:08 08/16/24 13:08 Labs: Lab Results 08/16/24 08/16/24 Range/Units 13:08 13:51 WBC 9.7 (4.8-10.8) X10*3/uL RBC 4.72 (4.20-5.50) X10*6/uL Hgb 13.7 (12.0-16.0) g/dl Hct 43.1 (37.0-47.0) % MCV 91.3 (80.0-98.0) fL MCH 29.0 (27.0-33.0) pg MCHC 31.8 (31.0-35.0) g/dl RDW 14.1 (11.0-16.0) % Plt Count 207 (160-400) X10*3/uL MPV 9.9 (9.4-12.3) fL Immature Gran % (Auto) 0.4 (0.0-0.4) % Neut % (Auto) 49.2 (45-73) % Lymph % (Auto) 36.2 (20-40) % [place] % (Auto) 10.2 (2-11) % Eos % (Auto) 3.6 (0-4) % Baso % (Auto) 0.4 (0-2) % Lymph # (Auto) 3.5 (1.2-4.9) X10*3/uL [place] # (Auto) 1.0 (0.1-1.2) X10*3/uL Eos # (Auto) 0.4 (0.0-0.4) X10*3/uL Baso # (Auto) 0.0 (0.0-0.2) X10*3/uL Abs Immat Gran (auto) 0.04 H (0.00-0.03) X10*3/uL Absolute Neuts (auto) 4.8 (2.0-8.3) x10*3/uL Absolute Nucleated RBC 0.000 (0.0-0.012) X10*3/uL Nucleated RBC % (auto) 0.0 (0.0-0.2) /100WBC Sodium 141 (135-145) mmol/L Potassium 3.2 L D (3.3-5.1) mmol/L Chloride 110 H (96-108) mmol/L Carbon Dioxide 20 L (22-29) mmol/L Anion Gap 14 (12-20) BUN 7 L (9-16) mg/dL Creatinine 0.77 (0.5-1.4) mg/dL Estim Creat Clear Calc 94.0 Estimated GFR > 60 Random Glucose 101 (60-115) mg/dL Lactic Acid 2.1 H* (0.5-2.0) mmol/L Calcium 9.2 (8.4-10.2) mg/dL Magnesium 3.3 H (1.6-2.6) mg/dL Total Bilirubin 0.6 (0.0-1.0) mg/dL AST 103 H (5-31) U/L ALT 101 H (0-31) U/L Alkaline Phosphatase 298 H (39-117) U/L Troponin I High Sens < 2.7 (<3.5-17.0) ng/L B-Natriuretic Peptide 17 (<100) pg/mL Total Protein 8.0 (6.5-8.0) g/dL Albumin 4.1 (3.5-5.0) g/dL Influenza Type A (PCR) NEGATIVE (Negative) Influenza Type B (PCR) NEGATIVE (Negative) RSV RNA Qual (PCR) NEGATIVE (Negative) SARS-CoV-2 RNA (RT-PCR) NEGATIVE (Negative) Independent Interpretation I performed an independent interpretation of an: EKG and Plain X-Ray (normal ) Interpretation: Rate: 83 Rhythm: NSR [place]: normal Normal P waves. Normal JORGE. Normal QRS complex. ST T wave : normal no GERTRUDIS qTC:462 prior studies: no acute ischemia The study has been interpreted contemporaneously by me. . Radiology Impression Discussion of test interpretation with radiology: I have reviewed the radiologist's reading. External Record Review External record reviewed: Office record and Outpatient record Prescription Management I considered prescription management with: Antibiotic and Other Discharge Plan Discharge Clinical Impression: Bronchitis Patient Disposition: Home, Self-Care Instructions: Acute Bronchitis (ED) Additional Instructions: return for any worsening symptoms or concerns such as similar presentation of today carry inhaler at all times take your medication with a drink please avoid any triggers negative for flu, covid, rsv chest xray no pneumonia Prescriptions: New azithromycin 250 mg tablet See Rx Instructions PO .COMPLEX Qty: 6 0RF Rx Instructions: For 250 mg dose pack: take 500 mg today (day 1), then 250 mg for 4 days (days 2-5) prednisone 20 mg tablet 40 mg PO DAILY 5 Days Qty: 10 0RF albuterol sulfate 90 mcg/actuation HFA aerosol inhaler 2 puff inhalation QID PRN (Reason: shortness of breath or wheezing) Qty: 6.7 0RF famotidine [Pepcid] 20 mg tablet 20 mg PO DAILY Qty: 10 0RF No Action docusate sodium [Colace] 100 mg capsule 100 mg PO .prn Qty: 90 0RF clotrimazole [Antifungal (clotrimazole)] 1 % cream 1 appl topical BID PRN (Reason: Rash) Qty: 45 2RF Rx Instructions: apply sparingly bid x 7 days if rash oxycodone 10 mg tablet 10 mg PO BID PRN (Reason: pain) levothyroxine 75 mcg tablet 75 mcg PO DAILY Remicade 100 mg recon soln IV Q8W buspirone 5 mg tablet 10 mg PO TID clonazepam 1 mg tablet 1 mg PO BID PRN Bariatric Multivitamins 45 mg iron- 800 mcg-120 mcg capsule 1 cap PO DAILY inulin 2 gram tablet,chewable 2 g PO DAILY Qty: 90 3RF sennosides [senna] 8.6 mg tablet 17.2 mg PO BEDTIME PRN (Reason: constipation) 90 Days Qty: 180 0RF bisacodyl [Dulcolax (bisacodyl)] 10 mg suppository 10 mg ID DAILY PRN (Reason: constipation) Qty: 12 0RF mirtazapine [Remeron] 15 mg tablet 15 mg PO BEDTIME bupropion HCl [Wellbutrin XL] 300 mg tablet extended release 24 hr 300 mg PO QAM Print Language: Khmer
[2024-08-16] MEDS: Albuterol Sulfate 2.5 MG, Albuterol/Iprat 2.5/0.5MG 3 ML 3 ML INHALE ×2 (12:49→14:24)
[2024-08-16] MEDS: Magnesium Sulfate/H2O 2 GM/50 ML PIGGYBACK IV (12:55)
[2024-08-16] MEDS: methylPREDNISolone Sod Succ 125 MG/2 ML VIAL 60 MG IVPUSH (12:56)
--- NOTE | 2024-08-16 13:04 | PC.NURSE ---
Pt comes to ED today with c/o SOB, cough, and wheezing. A&Ox3, VSS, afebrile. Breaths are moderately labored with not ably wheezing. Frequent, non-productive cough noted. Skin is warm and dry; facial symmetry present. Speech is clear, concise, and unlabored. Pt c/o upper chest pain with radiation to R upper back and under breast area; pain 8/10. Pt reports symptoms started last night and got progressively worse as time went on. She denies smoking or being around any smoke/pollutants. Pt reports frequent urination and pain with urinating. 22g to R wrist. RT at bedside for eval/treatment. Pt medicated per NOV. Blood labs in process.
[2024-08-16 13:16] LABS: MANUAL DIFF FLAG NO
[2024-08-16 13:18] LABS: Basophils Percent Auto 0.4 % (0-2); Eosinophils Absolute Auto 0.4 X10*3/uL (0.0-0.4); Eosinophils Percent Auto 3.6 % (0-4); Hematocrit 43.1 % (37.0-47.0); Hemoglobin 13.7 g/dl (12.0-16.0); Imm Gran Abs Auto 0.04 X10*3/uL (0.00-0.03); Imm Gran Pct Auto 0.4 % (0.0-0.4); Lymphocytes Absolute Auto 3.5 X10*3/uL (1.2-4.9); Lymphocytes Percent Auto 36.2 % (20-40); Mean Corpuscular HGB Conc 31.8 g/dl (31.0-35.0); Mean Corpuscular Volume 91.3 fL (80.0-98.0); Mean Platelet Volume 9.9 fL (9.4-12.3); Monocytes Percent Auto 10.2 % (2-11); Neutrophils Absolute Auto 4.8 x10*3/uL (2.0-8.3); Neutrophils Percent Auto 49.2 % (45-73); Platelet Count 207 X10*3/uL (160-400); Red Blood Count 4.72 X10*6/uL (4.20-5.50); Red Cell Distribution Width 14.1 % (11.0-16.0); White Blood Count 9.7 X10*3/uL (4.8-10.8)
[2024-08-16 13:33] LABS: Alanine Aminotransferase 101 U/L (0-31); Albumin Level 4.1 g/dL (3.5-5.0); Alkaline Phosphatase 298 U/L (39-117); Anion Gap 14 (12-20); Aspartate Amino Transferase 103 U/L (5-31); Bilirubin Total 0.6 mg/dL (0.0-1.0); Blood Urea Nitrogen 7 mg/dL (9-16); Calcium 9.2 mg/dL (8.4-10.2); Carbon Dioxide 20 mmol/L (22-29); Chloride 110 mmol/L (96-108); Estimated Glomerular Filt Rate > 60; Glucose Random 101 mg/dL (60-115); Magnesium 3.3 mg/dL (1.6-2.6); Potassium 3.2 mmol/L (3.3-5.1); Sodium 141 mmol/L (135-145)
[2024-08-16 13:35] LABS: Lactic Acid 2.1 mmol/L (0.5-2.0)
[2024-08-16 13:37] LABS: B Type Natriuretic Peptide 17 pg/mL (<100)
[2024-08-16 13:59] LABS: Influenza A PCR NEGATIVE (Negative); Influenza B PCR NEGATIVE (Negative); Resp Syncy Virus RNA Qual PCR NEGATIVE (Negative); SARS COV2 PCR INHOUSE NEGATIVE (Negative)
[2024-08-16 14:17] LABS: Troponin-I High Sensitivity < 2.7 ng/L (<3.5-17.0)
[2024-08-16] MEDS: Lactated Ringers 1,000 ML 999 ML IV (14:22)
[2024-08-16] MEDS: Potassium Chloride ER 20 MEQ TAB.ER.PRT 40 MEQ PO (14:23)
[2024-08-16 15:14] LABS: Reflex Lactate? Lactic Acid Added
[2024-08-16] MEDS: Albuterol Sulfate 90 MCG 8 GM INHALER 2 PUFF INHALE (15:34)
[2024-08-16 16:08] LABS: ~Lactic Acid-LAB USE ONLY 3.7 mmol/L (0.5-2.0)
[2024-08-16 16:09] LABS: Reflex Lactate? 2 N
[2024-08-16 16:09] LABS: Cancel Lactic Acid Canceled
== END 2024-08-16 17:18 | disposition home or self-care (01) ==
PROVIDERS: Physician Assistant Medical; Emergency Provider Emergency Medicine; PCP Internal Medicine
DX: J40 Bronchitis, not specified as acute or chronic (principal); Z03.818 Encounter for observation for suspected exposure to other biological agents ruled out; R06.82 Tachypnea, not elsewhere classified; R05.9 Cough, unspecified; R06.02 Shortness of breath; R30.0 Dysuria; E11.9 Type 2 diabetes mellitus without complications; Z79.899 Other long term (current) drug therapy
CPT/HCPCS: 0241U; 36415; 71045; 80053; 83605; 83735; 83880; 84484; 85025; 87040; 93005; 94640; 96365; 96375; 99285; J2919; J3475; J7120

== ENCOUNTER → 2024-08-16 12:28 | Outpatient (BNV) | payer OTHER, SELFPAY | PROVIDERS: Emergency Provider Emergency Medicine; PCP Internal Medicine; Visit Provider Internal Medicine | DX: R06.02 Shortness of breath (principal) | CPT/HCPCS: 93010 ==

== ENCOUNTER 2024-08-21 09:53 | Outpatient (REF) | payer OTHER, SELFPAY ==
[2024-08-21 11:06] LABS: MANUAL DIFF FLAG NO
[2024-08-21 12:08] LABS: Basophils Absolute Auto 0.1 X10*3/uL (0.0-0.2); Basophils Percent Auto 0.5 % (0-2); Eosinophils Absolute Auto 0.1 X10*3/uL (0.0-0.4); Eosinophils Percent Auto 0.8 % (0-4); Hematocrit 43.3 % (37.0-47.0); Hemoglobin 13.9 g/dl (12.0-16.0); Imm Gran Abs Auto 0.06 X10*3/uL (0.00-0.03); Imm Gran Pct Auto 0.4 % (0.0-0.4); Lymphocytes Absolute Auto 4.3 X10*3/uL (1.2-4.9); Lymphocytes Percent Auto 29.3 % (20-40); Mean Corpuscular HGB Conc 32.1 g/dl (31.0-35.0); Mean Corpuscular Hemoglobin 29.3 pg (27.0-33.0); Mean Corpuscular Volume 91.2 fL (80.0-98.0); Monocytes Absolute Auto 1.4 X10*3/uL (0.1-1.2); Monocytes Percent Auto 9.4 % (2-11); Neutrophils Absolute Auto 8.8 x10*3/uL (2.0-8.3); Neutrophils Percent Auto 59.6 % (45-73); Platelet Count 319 X10*3/uL (160-400); Red Blood Count 4.75 X10*6/uL (4.20-5.50); Red Cell Distribution Width 13.9 % (11.0-16.0); White Blood Count 14.8 X10*3/uL (4.8-10.8)
[2024-08-21 12:23] LABS: Estimated Average Glucose 94 mg/dL; Hemoglobin A1C 107.8945 umol/L; Hemoglobin A1c % 4.9 % (<6.0); Total Hemoglobin (HGBA1C) 3557.8938 umol/L
[2024-08-21 12:41] LABS: C Reactive Protein 0.72 mg/dL (< or = 0.50); Cholesterol 175 mg/dL (<200); HDL Cholesterol 49 mg/dL (>40); Iron 44 mcg/dL (30-160); LDL Cholesterol Calculated 105 mg/dL (<100); Percent Iron Saturation 12 % (15-50); Total Iron Binding Capacity 370 mcg/dL (228-428); Triglycerides 108 mg/dL (<150); Unsaturated Iron Binding 326 ug/dL
[2024-08-21 13:00] LABS: Ferritin 29 ng/mL (10-250); Insulin 8 uU/mL (2-29); TSH reflex Free T4 0.52 uIU/mL (0.32-4.0); Vitamin D 25-OH Total 28.5 ng/mL (>30)
[2024-08-21 13:10] LABS: Folate 9.3 ng/mL (> or = 4.0); Vitamin B12 771 pg/mL (200-900)
[2024-08-26 17:43] LABS: Zinc 71 mcg/dL (60-130)
[2024-08-27 03:09] LABS: Vitamin A 43 mcg/dL (38-98)
[2024-08-27 15:37] LABS: Vitamin B1 6 nmol/L (8-30)
== END 2024-08-21 09:54 | disposition home or self-care (01) ==
LOC: HO.LAB 09:53
PROVIDERS: PCP Internal Medicine; Visit Provider Physician Assistant Surgical
DX: E50.9 Vitamin A deficiency, unspecified (principal); E55.9 Vitamin D deficiency, unspecified; Z98.84 Bariatric surgery status
CPT/HCPCS: 36415; 80061; 82306; 82607; 82728; 82746; 83036; 83525; 83540; 84425; 84443; 84590; 84630; 85025; 86140; 99212

== ENCOUNTER 2024-08-21 09:53 | Outpatient (AMB) | payer OTHER, SELFPAY ==
--- NOTE | 2024-08-21 10:02 | MHC.OFFVISWM ---
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: No Allergies codeine [CODEINE] Allergy (Intermediate, Verified 08/21/24 10:04) HIVES, rash hydrocodone [From VICODIN] Allergy (Intermediate, Verified 08/21/24 10:04) HIVES shellfish derived Allergy (Intermediate, Verified 08/21/24 10:04) swollen Medication List - Last Reconciled 08/21/24 by TYLER Rogers albuterol sulfate 90 mcg/actuation 2 puffs inhalation QID PRN bisacodyl (Dulcolax (bisacodyl)) 10 mg TX DAILY PRN bupropion HCl XL (Wellbutrin XL) 300 mg PO QAM buspirone 10 mg PO TID clonazepam 1 mg PO BID PRN clotrimazole 1% (Antifungal (clotrimazole)) 1 appl topical BID PRN docusate sodium (Colace) 100 mg PO .prn famotidine (Pepcid) 20 mg PO DAILY infliximab (Remicade) IV Q8W inulin 2 grams PO DAILY levothyroxine 75 mcg PO DAILY mirtazapine (Remeron) 15 mg PO BEDTIME dmhphzchsecs-glk-ghre-FA-vit K 45 mg iron- 800 mcg-120 mcg (Bariatric Multivitamins) 1 cap PO DAILY oxycodone 10 mg PO BID PRN sennosides (senna) 17.2 mg (2 x 8.6 mg) PO BEDTIME PRN 90 days HPI Comments Details: Patient is a pleasant 48-year-old female who returns to the office today in follow-up. She is status post panniculectomy on 12/12/2022 and sleeve gastrectomy on 08/25/2020. The panniculectomy was performed by Dr. Philippe and the sleeve gastrectomy was performed by Dr. Freeman. She states that her weight today is 182.2 lb corresponding to a BMI of 31.3 Doing bariatric fusion multi vitamin Also complaining of excess skin of bilateral thighs, causing rubbing and discomfort with clothing. She has had intermittent rash in the groin that improves with clotrimazole cream. She has been having intermittent constipation and is followed by gastroenterology, Dr Thorne for her underlying Crohn's disease. Colonoscopy sunday and endometriosis bx and bladder sling yesterday. Had L5 laminoplasty surgery 11/02/23- spine surgery - dr geovanni TIERNEY, still sore and not back to work or able to exercise. F/U 09/04/24, She is able to use recumbent bike. She states she has been using [employer] RTD 30 gm shake. She does not know why she is gaining weight, not following the meal plan exactly, cottage cheese w strawberries at home. Having 8 forks of protein, no vegetables. Meal plan: Using [employer], 30 gm ready to drink shakes, 7-9 half the shake mixed with 6 oz of water 11-1 built bar 2-4 the other half of the shake 6pm, meal with 7 forks of protein and 7 forks of vegetables. Drinking 40 oz of water daily. Exercise plan: recumbent bike at the gym, 7 x per week, [address]. Any post op complications: none MUNA: dx but never got the machine. DM: resolved HTN: never Hyperlipidemia: never GERD:?0-5 scale ??0 = no symptoms ??1 = symptoms noticeable but not bothersome 2 =symptoms bothersome but not daily ? 3 = symptoms bothersome and daily 4 = symptoms affect daily activities 5 = symptoms are incapacitating, unable to do daily activities ? How bad is the heartburn: 0 ? Heartburn while lying down: 0 ? Heartburn when standing up: 0 ? Heartburn after meals: 0 ? Does heartburn change your diet: 0 ? Does heartburn wake you up from sleep: 0 ? Do you have difficulty swallowin ? Do you have pain with swallowin ? If you take medicine for your reflux, does this affect your daily life: 0 Satisfaction with present condition - satisfied or not satisfied: satisfied [facility] Medical History Intestinal malabsorption following gastrectomy Wears partial dentures Lab test negative for COVID-19 virus Shortness of breath Obesity (BMI 30-39.9) Obstructive sleep apnea Chronic back pain DDD (degenerative disc disease) Hypothyroidism Depression Anxiety Crohn's disease Type II diabetes mellitus Surgical History S/P placement of nerve stimulator History of sleeve gastrectomy History of bilateral tubal ligation History of fusion of cervical spine Other specified postprocedural states History of Achilles tendon repair History of section History of laparoscopic cholecystectomy Family History Father No problems noted. Mother Diabetes mellitus Brother No problems noted. Brother No problems noted. Brother No problems noted. Brother No problems noted. Brother No problems noted. Sister Type I diabetes mellitus Sister No problems noted. Son No problems noted. Son No problems noted. Son No problems noted. Daughter No problems noted. Daughter No problems noted. Social History Household Members: Significant Other Housing: House Are you a primary resident care aide to a significant other at home: No Do you presently have visiting nurse or other home services: No Alcohol intake: never Comment: sleeping Patient Tobacco Use Status: Never used Tobacco Advance Directives Date on File: 08/15/16 service: No Current occupational status: employed Physical Exam Const General: cooperative and no acute distress Orientation/consciousness: patient oriented x3 Resp Effort & Inspection: normal respiratory effort Auscultation: wheezes and bronchial breath sounds Cardio Rate: regular rate Rhythm: regular rhythm GI Inspection: Yes normal to inspection and Yes incision (well healed) Palpation (GI): Soft to palpation and no masses Neuro General: patient oriented x3 Assessment & Plan Assessment & Plan (1) S/P laparoscopic sleeve gastrectomy: Code(s): Z98.84 - Bariatric surgery status Category: Surgical Plan: Patient recently had labs done given recent diagnosis of bronchitis. She was found to have hypokalemia and hypomagnesemia. She was given potassium supplement. We will check repeat labs as well as vitamin labs for her yearly postop follow-up visit. She had a CBC which was normal. Recommend decreasing her forks of protein to 6 at night, continue exercise as she is doing. Return to clinic in 2 months. Orders: Orders Lipid Panel Today E50.9 - Vitamin A deficiency, unspecified, E55.9 - Vitamin D deficiency, unspecified, Z98.84 - Bariatric surgery status Zinc Today E50.9 - Vitamin A deficiency, unspecified, E55.9 - Vitamin D deficiency, unspecified, Z98.84 - Bariatric surgery status Vitamin B1 Today E50.9 - Vitamin A deficiency, unspecified, E55.9 - Vitamin D deficiency, unspecified, Z98.84 - Bariatric surgery status Ferritin Today E50.9 - Vitamin A deficiency, unspecified, E55.9 - Vitamin D deficiency, unspecified, Z98.84 - Bariatric surgery status Vitamin D 25-OH Total Today E50.9 - Vitamin A deficiency, unspecified, E55.9 - Vitamin D deficiency, unspecified, Z98.84 - Bariatric surgery status Insulin Today E50.9 - Vitamin A deficiency, unspecified, E55.9 - Vitamin D deficiency, unspecified, Z98.84 - Bariatric surgery status Hemoglobin A1c Today E50.9 - Vitamin A deficiency, unspecified, E55.9 - Vitamin D deficiency, unspecified, Z98.84 - Bariatric surgery status Complete Blood Count Auto Diff Today E50.9 - Vitamin A deficiency, unspecified, E55.9 - Vitamin D deficiency, unspecified, Z98.84 - Bariatric surgery status IRON PROFILE Today E50.9 - Vitamin A deficiency, unspecified, E55.9 - Vitamin D deficiency, unspecified, Z98.84 - Bariatric surgery status Vitamin B12 and Folate Today E50.9 - Vitamin A deficiency, unspecified, E55.9 - Vitamin D deficiency, unspecified, Z98.84 - Bariatric surgery status C Reactive Protein Today E50.9 - Vitamin A deficiency, unspecified, E55.9 - Vitamin D deficiency, unspecified, Z98.84 - Bariatric surgery status Vitamin A Today E50.9 - Vitamin A deficiency, unspecified, E55.9 - Vitamin D deficiency, unspecified, Z98.84 - Bariatric surgery status TSH reflex Free T4 Today E50.9 - Vitamin A deficiency, unspecified, E55.9 - Vitamin D deficiency, unspecified, Z98.84 - Bariatric surgery status
[2024-08-21 10:12] VITALS: BP 142/84; PULSE 84; TEMP 35.9; O2SAT 93; BMI 31.3
--- OUTSIDE RECORDS SUMMARY | 2024-08-27 01:09 | XMS_ITS | Continuity of Care Document ---
Author Organization [facility] Address [address] [place] [id number] [facility] Name Relationship Address Phone BARBARA CALDERON child Unknown Unavailable ELEONORA, YONATHAN Personal Relationship Unknown Un available ELEONORA, YONATHAN Personal Relationship Unknown Un available CHEVOLZEN, CAROLYNN spouse Unknown Unavailabl e CHEVALIER, ELOISA mother Unknown Unavailab le CHEVOLZEN, ELOISA mother Unknown Unavailab le TATIANA, YONATHAN Personal Relationship Unknown U navailable HEWS, BARBARA child Unknown Unavailable ELEONORA, LUIS MIGUEL Other Unknown Unavailabl e TATIANA, YONATHAN Personal Relationship Unknown U navailable TATIANA, YONATHAN Personal Relationship Unknown U navailable TATIANA, YONATHAN Personal Relationship Unknown U navailable Care Team Providers Care Manager Manufacturing Name Role Phone Levi Ulloa MD Primary Care Physician Encounter [facility] Date(s): 07/03/24 - 08/02/24 [facility] [address] [place] [address]- Encounter Type: Triage Allergies, Adverse Reactions, Alerts Substance Criticality Severity Reaction Reaction Severity Status shellfish rash Active Tylenol with Codeine rash Active Vicodin vomiting Active Immunizations Given and Recorded Vaccine Date Status Refusal Reason influenza virus vaccine, inactivated 1 07/29/24 Gi vasu influenza virus vaccine, inactivated 06/08/23 Ruben rded influenza virus vaccine, inactivated 07/04/21 Ruben rded influenza virus vaccine, inactivated 2 11/09/20 Gi vasu influenza virus vaccine, inactivated 3 06/05/19 Gi vasu influenza virus vaccine, inactivated 4 06/19/18 Gi vasu influenza virus vaccine, inactivated 5 07/06/16 Re corded influenza virus vaccine, inactivated 6 07/16/15 Gi vasu influenza virus vaccine, inactivated 08/31/10 Give n tetanus/diphtheria/pertussis, acel(Tdap) 7 05/05/24 Given tetanus/diphtheria/pertussis, acel(Tdap) 8 06/17/13 Given SARS-CoV-2 (COVID-19) mRNA BNT-162b2 vac 07/20/21 Recorded SARS-CoV-2 (COVID-19) mRNA BNT-162b2 vac 01/12/21 Recorded SARS-CoV-2 (COVID-19) mRNA BNT-162b2 vac 12/22/20 Recorded Afluria (oldterm) 9 07/11/17 Given pneumococcal 23-valent vaccine 11/19/16 Recorded Pneumococcal Poly (PPV23) (oldterm) 08/31/10 Given 1Result Comment: [facility]: [id number] 2Result Comment: [facility]: [id number] 3Result Comment: [id number] 4Result Comment: [06/19/2018] [facility] [id number] 5Result Comment: [07/12/2016] [facility] 6Result Comment: [07/16/2015] all screening questions answered 7Result Comment: [facility]: [id number] 8Admin Note: VIS GIVEN waiver signed and put to scanning 9Result Comment: [07/11/2017] [facility] [id number] Medications acetaminophen 500 mg oral tablet 1 tablet = 500 mg, By Mouth, Every 4 hours, PRN as needed for pain, # 50 tablet, 0 Refills, Maintenance, 02/25/24 4:44:00 PM EDT, Tablet, [facility] #[id number], Partial fill upon patient requestif the prescription is for a schedule II opioid drug., 163, cm, 02/25/24 13:38:00 EDT, Height, 85.3, kg, 02/25/24 13:38:00 EDT, Dry Weight Start Date: 02/25/24 Status: Ordered Quantity: 50.0 Unit: tablet Repeat number: 1 busPIRone 10 mg oral tablet 10 mg, 1, tablet, By Mouth, 3 times a day, # 270 tablet, Refills 1, Tot. Refills 1, Maintenance, 06/26/24 9:38:00 AM EDT, Route to Pharmacy Electronically, [facility]/pharmacy #[id number], Partial fill upon patient request if the prescription is for a schedule II opioid drug., 163, cm, 06/16/24 10:33:00 EDT, Height, 86.3, kg, 05/20/24 15:51:00 EDT, Dry Weight Start Date: 06/26/24 Stop Date: 12/23/24 Status: Ordered Quantity: 270.0 Unit: tablet Repeat number: 2 clonazePAM 1 mg oral tablet 1 tablet = 1 mg, By Mouth, 2 times a day, # 60 tablet, 4 Refills, Maintenance, 06/26/24 9:38:00 AM EDT, Tablet, [facility]/pharmacy #[id number], per masspat-last filled 10/15/2019, 163, cm, 06/16/24 10:33:00 EDT, Height, 86.3, kg, 05/20/24 15:51:00 EDT, Dry Weight Start Date: 06/26/24 Stop Date: 11/23/24 Status: Ordered Quantity: 60.0 Unit: tablet Repeat number: 5 Estradiol Patch 0.05 mg/24 hours weekly transdermal film, extended release 1 patch, Topically, Every week, please call [phone] if issues, # 12 patch, 4 Refills, Maintenance,05/26/24 2:59:00 PM EDT, Patch, [facility]/pharmacy #[id number], Partial fill upon patient request if the prescription is for a schedule II opioid drug., 163, cm, 05/26/24 14:56:00 EDT, Height, 86.3, kg, 05/20/24 15:51:00 EDT, Dry Weight Start Date: 05/26/24 Status: Ordered Quantity: 12.0 Unit: patch Repeat number: 5 levothyroxine 75 mcg (0.075 mg) oral tablet 1 tablet, By Mouth, Daily, # 90 tablet, 1 Refills, [id number], 163, cm, 03/15/22 15:44:00 EDT,Height, 77.5, kg, 02/01/22 8:39:00 EDT, Dry Weight Start Date: 03/29/22 Status: Ordered Quantity: 90.0 Unit: tablet Repeat number: 1 Liletta 52 mg intrauterine device 1 each = 52 mg, Intrauterine, Once, please pickling operator proir to appointment, # 1 each, 0 Refills, Soft Stop, 03/13/24 12:06:00 PM EDT, [facility], Partial fill upon patient request if theprescription is for a schedule II opioid drug., 163, cm, 02/25/24 13:38:00 EDT, Height, 85.3, kg, 02/25/24 13:38:00 EDT, Dry Weight Start Date: 03/13/24 Status: Ordered Quantity: 1.0 Unit: each Repeat number: 1 MiraLax oral powder for reconstitution = 17 Gm, By Mouth, Daily, Titrate the dose every 5-7 days to target one soft stool daily, # 527 Gm,11 Refills, Maintenance, 02/19/24 9:01:00 PM EDT, [facility]/pharmacy #[id number], Partial fill upon patient request if the prescription is for a schedule II opioid drug., 17 Gm By Mouth Daily,x90 days,Instr:Titrate the dose every 5-7 days to target one soft stool daily, 163, cm, 02/19/24 14:59:00 EDT, Height, 97.4, kg, 02/19/24 14:59:00 EDT, Dry Weight Start Date: 02/19/24 Stop Date: 02/03/27 Status: Ordered Quantity: 527.0 Unit: g Repeat number: 12 oxyCODONE 10 mg oral tablet 1 tablet = 10 mg, By Mouth, 2 times a day, PRN Pain , Moderate, for 28 days, Patient agrees to stopclonazepam due to potential interaction. Controlled Substance Agreement in place fill on or after 02/12/24, # 56 tablet, 0 Refills, Hard Stop 08/11/24 10:17:00 PM EST, 07/14/24 10:17:00 PM EDT, [facility]/pharmacy #[id number], 163, cm, 06/16/24 10:33:00 EDT, Height, 86.3, kg, 05/20/24 15:51:00 EDT, Dry Weight Start Date: 07/14/24 Stop Date: 08/11/24 Status: Ordered Quantity: 56.0 Unit: tablet Repeat number: 1 [place], 31 G x 8 mm BD Ultra Fine III See Instructions, # 100 each, Refills 1, Tot. Refills 1, Maintenance, use as directed for Type 2 Diabetes Mellitus, 05/26/24 10:16:00 PM EDT, Supply, 163, cm, 05/26/24 14:56:00 EDT, Height, 86.3, kg, 05/20/24 15:51:00 EDT, Dry Weight Start Date: 05/26/24 Stop Date: 07/25/24 Status: Ordered Quantity: 100.0 Unit: each Repeat number: 2 PROzac 20 mg oral capsule 20 mg, 1, capsule, By Mouth, Daily, # 90 capsule, Refills 1, Tot. Refills 1, Maintenance, 06/26/24 9:44:00 AM EDT, Route to Pharmacy Electronically, [facility]/pharmacy #[id number], Partial fill upon patient request if the prescription is for a schedule II opioid drug., 163, cm, 06/16/24 10:33:00 EDT, Height, 86.3, kg, 05/20/24 15:51:00 EDT, Dry Weight Start Date: 06/26/24 Stop Date: 12/23/24 Status: Ordered Quantity: 90.0 Unit: capsule Repeat number: 2 Remeron 15 mg oral tablet 0.5 tablet = 7.5 mg, By Mouth, Daily at bedtime, # 45 tablet, 1 Refills, Maintenance, 06/26/24 9:39:00 AM EDT, Tablet, [facility]/pharmacy #[id number], Partial fill upon patient request if the prescription is fora schedule II opioid drug., 163, cm, 06/16/24 10:33:00 EDT, Height, 86.3, kg, 05/20/24 15:51:00 EDT, Dry Weight Start Date: 06/26/24 Stop Date: 12/23/24 Status: Ordered Quantity: 45.0 Unit: tablet Repeat number: 2 Remicade IVPB mg, IVPB, Every 6 weeks, Maintenance, 02/19/24 2:42:00 PM EDT Start Date: 02/19/24 Status: Ordered Repeat number: 1 Victoza 18 mg/3 mL subcutaneous solution = 1.8 mg, Subcutaneous Injection, Daily, # 9 mL, 1 Refills, Maintenance, 07/29/24 2:55:00 PM EST, Solution, [facility]/pharmacy #[id number], Partial fill upon patient request if the prescription is for a scheduleII opioid drug., 163, cm, 07/29/24 14:34:00 EST, Height, 86.3, kg, 05/20/24 15:51:00 EDT, Dry Weight Start Date: 07/29/24 Status: Ordered Quantity: 9.0 Unit: mL Repeat number: 2 Wellbutrin XL 150 mg/24 hours oral tablet, extended release 1 tablet = 150 mg, By Mouth, Every 24 hours, # 90 tablet, 1 Refills, Maintenance, 06/26/24 9:44:00 AM EDT, ER Tablet, [facility]/pharmacy #[id number], Partial fill upon patient request if the prescription is for a schedule II opioid drug., 163, cm, 06/16/24 10:33:00 EDT, Height, 86.3, kg, 05/20/24 15:51:00 EDT,Dry Weight Start Date: 06/26/24 Stop Date: 12/23/24 Status: Ordered Quantity: 90.0 Unit: tablet Repeat number: 2 Problem List Condition Confirmation Course Effective Dates Status H ealth Status Informant Abdominal pain Confirmed Active Arthritis of facet joint of lumbar spine Confirmed Active Back pain Confirmed Active Morbid obesity with BMI of 40.0-44.9, adult Confirmed 12/18/12 Active Cervical spondylosis with myelopathy and radiculopathy Confirmed Active Chronic nonmalignant pain Confirmed Active CD (Crohn's disease) Confirmed Active Diabetic polyneuropathy Confirmed Active Diarrhea Confirmed Active Hormone replacement therapy (HRT) Confirmed Active Hormone replacement therapy Confirmed Active Generalized anxiety disorder Confirmed Active 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 Confirmed Active HLD (hyperlipidemia) Confirmed Active Hypothyroid Confirmed Active IUD check up Confirmed Active Lumbar radiculitis Confirmed Active Vasomotor symptoms due to menopause Confirmed Active Heavy menses Confirmed Active Headache, classical migraine Confirmed Active Obese class I Confirmed Active Perimenopause Confirmed Active Plantar fasciitis Confirmed Active Post traumatic stress disorder (PTSD) Confirmed Active Depression, major, recurrent, moderate Confirmed Active DM type 2, goal HbA1c < 7% Confirmed Active Diabetes type 2, uncontrolled Confirmed Active Vitamin D deficiency Confirmed 12/18/12 Active Social History Social History Type Response Smoking Status Never (less than 100 in lifetime) entered on: 10/08/23 Sex Sex Representation Female (finding) Patient Care team information Care Team Personnel Name: Michoacano Thorne MD Position: [facility] Physician - Gastroenterology Member Role: Lifetime Consulting Physician Address: [address] [place] [address], [address] [facility] [place] [address]- Telecom: Name: Jessica Gu RN Position: [facility] RN Member Role: Primary Care Nurse Name: Annalise Whitman RN Position: [facility] Nurse Member Role: Primary Care Nurse Name: Levi Ulloa MD Position: [facility] Physician - Primary Care Member Role: PCP Address: [address] [place] [id number]- Telecom: Name: Ashley Gillette RN Position: [facility] RN Member Role: Primary Care Nurse Name: Maura Kim RN Position: [facility] RN Member Role: Primary Care Nurse Name: Eden Parham RN Position: [facility] Onco RN Member Role: Primary Care Nurse Name: Cathy Nuñez RN Position: [facility] RN Member Role: Primary Care Nurse Name: Soraida Mai RN Position: [facility] Onco RN Member Role: Primary Care Nurse Name: Kellee Ramirez RN Position: [facility] RN Member Role: Primary Care Nurse Name: Stephanie Rahman RN Position: [facility] RN Member Role: Primary Care Nurse Name: Sherry Martinez MA Position: [facility] Office Staff Member Role: Primary Care Nurse Name: Noa Catalan RN Position: [facility] RN Member Role: Primary Care Nurse Name: Alisha Moon MA Position: [facility] Office Staff Member Role: Primary Care Nurse Name: Qi Childress RN Position: [facility] RN Member Role: Primary Care Nurse Name: Lacy Martinez RN Position: [facility] ED RN W/OE and Tasks Member Role: Primary Care Nurse Name: Xochitl Baig RN Position: [facility] RN Member Role: Primary Care Nurse Name: Dianne Hurt RN Position: [facility] RN Member Role: Primary Care Nurse Name: Shelly Metcalf RN Position: [facility] Onco RN Member Role: Primary Care Nurse Name: Shawn Jeffrey RN Position: [facility] SN RN Member Role: Primary Care Nurse Name: Sadie Boykin RN Position: [facility] AMB Nurse Member Role: Primary Care Nurse Name: Katlin Esteban RN Position: [facility] ED RN W/OE and Tasks Member Role: Primary Care Nurse Name: Lyudmila Leone Position: [facility] RN Supv Member Role: Primary Care Nurse Name: Prudencio Da Silva RN Position: [facility] RN Member Role: Primary Care Nurse Name: Karly Johnson RN Position: [facility] RN Member Role: Primary Care Nurse Name: Giselle Ward RN Position: [facility] RN Member Role: Primary Care Nurse Name: Kellee Wen RN Position: [facility] RN Member Role: Primary Care Nurse Name: Zully Mcghee RN, I Position: [facility] RN Member Role: Primary Care Nurse Care Team Related Persons Name: ELOISA ESPINOZA Name: ELOISA GARZON Name: CAROLYNN GARZON Name: BARBARA FIGUEROA Name: LUIS MIGUEL CREWS Insurance Providers Guarantor name: [facility] Information #: [address]ayer: [facility] Member Number: NA Policy Number: NA Group Number: NA
--- OUTSIDE RECORDS SUMMARY | 2024-08-27 01:10 | XMS_ITS | Continuity of Care Document ---
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 [id number] 5Result Comment: [07/12/2016] given at [facility] [place] 6Result Comment: [07/16/2015] all screening questions answered 7Result Comment: [facility]: [id number] 8Admin Note: VIS GIVEN waiver signed and put to scanning 9Result Comment: [07/11/2017] [facility] [id number] Medications acetaminophen 500 mg oral tablet 1 tablet = 500 mg, By Mouth, Every 4 hours, PRN as needed for pain, # 50 tablet, 0 Refills, Maintenance, 02/25/24 4:44:00 PM EDT, Tablet, [facility][id number], Partial fill upon patient requestif the prescription [...] 9:38:00 AM EDT, Route to Pharmacy Electronically, [facility]/pharmacy #[id number], Partial fill upon patient request if [...] Refills, Maintenance, 06/26/24 9:38:00 AM EDT, Tablet, [facility]/pharmacy #[id number], per masspat-last filled 10/15/2019, 163, cm, 06/16/24 10:33:00 EDT, Height, 86.3, kg, 05/20/24 15:51:00 EDT, Dry Weight Start Date: 06/26/24 Stop Date: 11/23/24 Status: Ordered Quantity: 60.0 Unit: tablet Repeat number: 5 Estradiol Patch 0.05 mg/24 hours weekly transdermal film, extended release 1 patch, Topically, Every week, please call [phone] if issues, # 12 patch, 4 Refills, Maintenance,05/26/24 2:59:00 PM EDT, Patch, [facility]/pharmacy #[id number], Partial fill upon patient request if the prescription is for a schedule II opioid drug., 163, cm, 05/26/24 14:56:00 EDT, Height, 86.3, kg, 05/20/24 15:51:00 EDT, Dry Weight Start Date: 05/26/24 Status: Ordered Quantity: 12.0 Unit: patch Repeat number: 5 levothyroxine 75 mcg (0.075 mg) oral tablet 1 tablet, By Mouth, Daily, # 90 tablet, 1 Refills, 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/pharmacy #[id number], Partial fill upon patient request if [...] # 56 tablet, 0 Refills, Hard Stop 09/07/24 9:39:00 PM EST, 08/10/24 9:39:00 PM EST, [facility]/pharmacy #[id number], 163, cm, 07/29/24 14:34:00 EST, Height, 86.3, kg, 05/20/24 15:51:00 EDT, Dry Weight Start Date: 08/10/24 Stop Date: 09/07/24 Status: Ordered Quantity: 56.0 Unit: tablet Repeat number: 1 Pen Adams, 31 G x 8 mm BD Ultra [...] 9:44:00 AM EDT, Route to Pharmacy Electronically, [facility] #[id number], Partial fill upon patient request if [...] Refills, Maintenance, 06/26/24 9:39:00 AM EDT, Tablet, [id number], Partial fill upon patient request if [...] Refills, Maintenance, 07/29/24 2:55:00 PM EST, Solution, [id number], Partial fill upon patient request if [...] Maintenance, 06/26/24 9:44:00 AM EDT, ER Tablet, 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 Confirmed Active [...] Team Personnel Name: Michoacano Thorne MD Position: [facility] Physician - Gastroenterology Member Role: Lifetime Consulting Physician Address: [address] [place] [address], [address] [facility] [place] [address]- [place] [employer]: Name: Jessica Gu RN Position: [facility] RN Member Role: Primary Care Nurse Name: Levi Ulloa MD Position: [facility] Physician - Primary Care Member Role: PCP Address: [address] [place] [id number]- [place] [employer]: Name: Ashley Gillette RN Position: [facility] RN Member Role: Primary Care Nurse Name: Maura Kim RN Position: [facility] RN Member Role: Primary Care Nurse Name: Eden Parham RN Position: [facility] Onco RN Member Role: Primary Care Nurse Name: Cathy Nuñez RN Position: [facility] RN Member Role: Primary Care Nurse Name: Soraida Mai RN Position: [facility] Onco RN Member Role: Primary Care Nurse Name: Kellee Ramirez RN Position: [facility] RN Member Role: Primary Care Nurse Name: Stephanie Rahman RN Position: [facility] RN Member Role: Primary Care Nurse Name: Sherry Martinez MA Position: [facility] Office Staff Member Role: Primary Care Nurse Name: Noa Catalan RN Position: [facility] RN Member Role: Primary Care Nurse Name: Alisha Moon MA Position: [facility] Office Staff Member Role: Primary Care Nurse Name: Qi Childress RN Position: [facility] RN Member Role: Primary Care Nurse Name: Lacy Martinez RN Position: [facility] ED RN W/OE and Tasks Member Role: Primary Care Nurse Name: Xochitl Baig RN Position: [facility] RN Member Role: Primary Care Nurse Name: Dianne Hurt RN Position: [facility] RN Member Role: Primary Care Nurse Name: Shelly Metcalf RN Position: [facility] Onco RN Member Role: Primary Care Nurse Name: Shawn Jeffrey RN Position: [facility] SN RN Member Role: Primary Care Nurse Name: Sadie Boykin RN Position: [facility] AMB Nurse Member Role: Primary Care Nurse Name: Katlin Esteban RN Position: [facility] ED RN W/OE and Tasks Member Role: Primary Care Nurse Name: Lyudmila Leone Position: [facility] RN Supv Member Role: Primary Care Nurse Name: Prudencio Da Silva RN Position: [facility] RN Member Role: Primary Care Nurse Name: Karly Johnson RN Position: [facility] RN Member Role: Primary Care Nurse Name: Giselle Ward RN Position: [facility] RN Member Role: Primary Care Nurse Name: Annalise Lee RN Position: [facility] AMB Nurse Member Role: Primary Care Nurse Name: Kellee Wen RN Position: [facility] RN Member Role: Primary Care Nurse Name: Zully Mcghee RN, I Position: [facility] RN Member Role: Primary Care Nurse Care Team Related Persons Name: ELOISA ESPINOZA Name: ELOISA GARZON Name: CAROLYNN GARZON Name: BARBARA FIGUEROA Name: LUIS MIGUEL CREWS Insurance Providers Guarantor name: [facility] Information #: 1 Payer: [facility] Member Number: NA Policy Number: NA Group Number: NA
--- OUTSIDE RECORDS SUMMARY | 2024-08-27 01:10 | XMS_ITS | Continuity of Care Document ---
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 Date(s): 07/29/24 - 08/05/24 [facility] [address] [place] [address]- Encounter Diagnosis DM type 2, goal HbA1c < 7%(Discharge Diagnosis) - 07/29/24 HLD (hyperlipidemia)(Discharge Diagnosis) - 07/29/24 Obese class I(Discharge Diagnosis) - 07/29/24 Attending Physician: Levi Ulloa MD Encounter Type: Office Visit Allergies, Adverse Reactions, Alerts Substance Criticality Severity [...] Poly (PPV23) (oldterm) 08/31/10 Given 1Result Comment: [facility]: [id number] 2Result Comment: [facility]: [id number] 3Result Comment: [id number] 4Result Comment: [06/19/2018] [facility] [id number] 5Result Comment: [07/12/2016] [facility] [place] 6Result Comment: [07/16/2015] all screening questions answered 7Result Comment: [facility]: [id number] 8Admin Note: VIS GIVEN waiver signed and put to scanning 9Result Comment: [07/11/2017] [facility] [id number] Medications acetaminophen 500 mg oral tablet 1 tablet = 500 mg, By Mouth, Every 4 hours, PRN as needed for pain, # 50 tablet, 0 Refills, Maintenance, 02/25/24 4:44:00 PM EDT, Tablet, [id number], Partial fill upon patient requestif the prescription [...] 9:38:00 AM EDT, Route to Pharmacy Electronically, [facility]/pharmacy #[id number], Partial fill upon patient request [...] Refills, Maintenance, 06/26/24 9:38:00 AM EDT, Tablet, [facility]/pharmacy #[id number], per masspat-last filled 10/15/2019, 163, cm, 06/16/24 10:33:00 EDT, Height, 86.3, kg, 05/20/24 15:51:00 EDT, Dry Weight Start Date: 06/26/24 Stop Date: 11/23/24 Status: Ordered Quantity: 60.0 Unit: tablet Repeat number: 5 Estradiol Patch 0.05 mg/24 hours weekly transdermal film, extended release 1 patch, Topically, Every week, please call [phone] if issues, # 12 patch, 4 Refills, Maintenance,05/26/24 2:59:00 PM EDT, Patch, [facility]/pharmacy #[id number], Partial fill upon patient request if the prescription is for a schedule II opioid drug., 163, cm, 05/26/24 14:56:00 EDT, Height, 86.3, kg, 05/20/24 15:51:00 EDT, Dry Weight Start Date: 05/26/24 Status: Ordered Quantity: 12.0 Unit: patch Repeat number: 5 levothyroxine 75 mcg (0.075 mg) oral tablet 1 tablet, By Mouth, Daily, # 90 tablet, 1 Refills, [id number], 163, cm, 03/15/22 15:44:00 EDT,Height, 77.5, kg, 05/18/22 8:39:00 EDT, Dry Weight Start Date: 03/29/22 Status: Ordered Quantity: 90.0 Unit: tablet Repeat number: 1 Liletta 52 mg intrauterine device 1 each = 52 mg, Intrauterine, Once, please pick up man proir to appointment, # 1 each, 0 Refills, Soft Stop, 03/13/24 12:06:00 PM EDT, [facility], Partial fill upon patient [...] Gm,11 Refills, Maintenance, 02/19/24 9:01:00 PM EDT, [facility]/pharmacy #[id number], Partial fill upon patient request [...] 10:17:00 PM EST, 07/14/24 10:17:00 PM EDT, [id number], 163, cm, 06/16/24 10:33:00 EDT, Height, 86.3, kg, 05/20/24 15:51:00 EDT, Dry Weight Start Date: 07/14/24 Stop Date: 08/11/24 Status: Ordered Quantity: 56.0 Unit: tablet Repeat number: 1 Pen Melvin, 31 G x 8 mm BD Ultra [...] 9:44:00 AM EDT, Route to Pharmacy Electronically, [facility]/pharmacy #[id number], Partial fill upon patient request [...] Refills, Maintenance, 06/26/24 9:39:00 AM EDT, Tablet, [facility]/pharmacy #[id number], Partial fill upon patient request [...] Refills, Maintenance, 07/29/24 2:55:00 PM EST, Solution, [facility]/pharmacy #[id number], Partial fill upon patient request [...] Maintenance, 06/26/24 9:44:00 AM EDT, ER Tablet, [facility]/pharmacy #[id number], Partial fill upon patient request [...] Confirmed Active Generalized anxiety disorder Confirmed Active 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 Active [...] Active Vitamin D deficiency Confirmed 12/18/12 Active Diagnosis Diagnosis Type Effective Dates Health Status Cl inical Service Informant DM type 2, goal HbA1c < 7% Discharge Diagnosis 07/29/24 HLD (hyperlipidemia) Discharge Diagnosis 07/29/24 Obese class I Discharge Diagnosis 07/29/24 Vital Signs Most recent to oldest [Reference Range]: 1 Height 163 cm (07/29/24 2:34 PM) Weight 87.1 kg (07/29/24 2:34 PM) Oxygen Saturation [94-100 %] 98 % (07/29/24 2:34 PM) Pulse Rate [55-90 bpm] 82 bpm (07/29/24 2:34 PM) Body Mass Index [18.5-24.99 kg/m2] 32.78 kg/m2 *>HHI* (07/29/24 2:34 PM) Blood Pressure [90-138/55-84 mm Hg] 119/ 82mm Hg (07/29/24 2:34 PM) Mode of Delivery (Oxygen) Room air (07/29/24 2:34 PM) Blood pressure sites Arm, right (07/29/24 2:34 PM) Weight Obtained Via Standing scale (07/29/24 2:34 PM) Social History Social History Type Response Smoking Status Never (less than 100 in lifetime) entered on: 10/08/23 Sex Sex Representation Female (finding) Note * Belia Mojica: PERFORM Event Display: Patient Education/Instruction Authored Date: [id number] Ambulatory Adult Visit Summary [facility] [address] [address] Name: YONATHAN CREWS : 1975?? Visit: 07/29/2024 14:02?? Ambulatory Visit Instructions ?? Your Care Team Primary Care Provider Levi Ulloa MD? This Visit Provider Levi Ulloa MD Your Diagnosis DM type 2, goal HbA1c < 7% HLD (hyperlipidemia) Obese class I Screen for STD (sexually transmitted disease) Vitals Signs Pulse Rate: 82 bpm Height: 163 cm Systolic Blood Pressure: 119 mm Hg Weight: 87.1 kg Diastolic Blood Pressure: 82 mm Hg Body Mass Index:??32.78 kg/m2??Critical Oxygen Saturation: 98 % Body surface area: 1.99 What to do next Scheduled Follow-Up Appointments 2023 2:40 PM EST ?? With: Levi Ulloa MD Where: [facility] [address] [place] [address]- Status: Pending Sunday 4:00 PM EST ?? With: Diane Walsh MD Where: [facility] [address] [place] [address]- Status: Pending Future Orders MM Digital Mammo Screening, Routine, Reason for Exam: Screening, Conditional Orders: MM Diag/US Breast/Guided Asp/Breast Bx, Once, *Est. 07/29/24 Hemoglobin A1C (Monitoring) - Routine, Once, 05/05/24 14:35:00 EDT, Single or Recurring Future Order, [facility], Blood?? Thyroid Panel - Routine, Once, 05/05/24 14:35:00 EDT, Single or Recurring Future Order, [facility], Blood?? Microalbumin Urine (Urine Microalbumin) - Routine, Urine, Once, 05/05/24 14:35:00 EDT, Single or Recurring Future Order, [facility], Urine?? Lipid Panel - Routine, Once, 05/05/24 14:35:00 EDT, Single or Recurring Future Order, [facility], Blood?? Comprehensive Metabolic Panel - Routine, Once, 05/05/24 14:35:00 EDT, Single or Recurring Future Order, [facility], Blood?? Vitamin D 25 Hydroxy Level - Routine, Once, 05/05/24 14:35:00 EDT, Single or Recurring Future Order, [facility], Blood?? HIV Ab-Ag 4th Generation - Routine, Once, 05/05/24 14:38:00 EDT, Single or Recurring Future Order, [facility], Blood?? Infliximab Conc and Antibody - Routine, Once, 07/03/24 14:28:00 EDT, Future Order, [facility], Blood?? CBC w/ Differential - Routine, Once, 07/03/24 14:28:00 EDT, Future Order, [facility], Blood?? Basic Metabolic Panel - Routine, Once, 07/03/24 14:29:00 EDT, Future Order, [facility], Blood?? Hepatic Function Panel (LFT's) - Routine, Once, 07/03/24 14:29:00 EDT, Future Order, [facility], Blood?? Sedimentation Rate (ESR) - Routine, Once, 07/03/24 14:29:00 EDT, Future Order, [facility], Blood?? C Reactive Protein (CRP) - Routine, Once, 07/03/24 14:29:00 EDT, Future Order, [facility], Blood?? Iron + Iron Binding Capacity - Routine, Once, 07/03/24 14:29:00 EDT, Future Order, [facility], Blood?? Ferritin - Routine, Once, 07/03/24 14:29:00 EDT, Future Order, [facility], Blood?? Folate Level - Routine, Once, 07/03/24 14:30:00 EDT, Future Order, [facility], Blood?? Vitamin B12 Level (B12 Vitamin Level) - Routine, Once, 07/03/24 14:30:00 EDT, Future Order, [facility], Blood?? Vitamin D 25 Hydroxy Level - Routine, Once, 07/03/24 14:30:00 EDT, Future Order, [facility], Blood?? HIV Ab-Ag 4th Generation - Routine, Once, 07/29/24 15:02:00 EST, Single or Recurring Future Order, [facility], Blood?? Medications The list below reflects the information in our records and provided by you today along with any changes made during this visit. Please continue your medications until treatment is completed or stopped by your provider. If this is different from the information you have or there are other questions,please contact the prescribing provider. What How Much When Instructions Changed liraglutide (Victoza 18 mg/ 3 mL subcutaneous solution) 1.8 Milligram Subcutaneous Injection Daily Pickup at [facility]/pharmacy #[id number] Unchanged Acetaminophen (acetaminophen 500 mg oral tablet) 1 tab(s) Oral Every 4 hours as needed for as needed for pain Unchanged BuPROpion (Wellbutrin XL 150 mg/ 24 hours oral tablet, extended release) 1 tab(s) Oral Every 24 hours Duration: 90 Days Unchanged BusPIRone (busPIRone 10 mg oral tablet) 1 tab(s) Oral 3 times a day Duration: 90 Days Unchanged Clonazepam (clonazePAM 1 mg oral tablet) 1 tab(s) Oral Twice a day Duration: 30 Days Unchanged Durable Medical Equipment (Pen Melvin, 31 G x 8 mm BD Ultra Fine III) See instructions Duration: 30 Days use as directed for Type 2 Diabetes Mellitus ?? Unchanged Estradiol (Estradiol Patch 0.05 mg/ 24 hours weekly transdermal film, extended release) 1 patch(es) Topically Every week please call [phone] if issues ?? Unchanged Fluoxetine (PROzac 20 mg oral capsule) 1 capsule Oral Daily Duration: 90 Days Unchanged Infliximab (Remicade IVPB) IV Piggyback Every 6 weeks Unchanged Levonorgestrel (Liletta 52 mg intrauterine device) 1 Each Intrauterine Once please pick up man proir to appointment ?? Unchanged Levothyroxine (levothyroxine 75 mcg (0.075 mg) oral tablet) 1 tab(s) Oral Daily Unchanged Mirtazapine (Remeron 15 mg oral tablet) 0.5 tab(s) Oral Daily at Bedtime Duration: 90 Days Unchanged Oxycodone (oxyCODONE 10 mg oral tablet) 1 tab(s) Oral Twice a day as needed for Pain , Moderate Duration: 28 Days Patient agrees to stop clonazepam due to potential interaction. Controlled Substance Agreement in place fill on or after ?? Unchanged Polyethylene Glycol 3350 (MiraLax oral powder for reconstitution) 17 gram Oral Daily Duration: 90 Days Titrate the dose every 5-7 days to target one soft stool daily ?? Pharmacy Information [facility]/pharmacy #[id number]: [id number] [place] [phone] Test Performed Below is a partial list of the tests performed during your Visit. You may have had other tests and procedures not included in this list. Please discuss all test results with your provider. HIV Ab-Ag 4th Generation?-- Results Pending -- Medications and Immunizations Administered Medications Given During Visit No medications given during this visit.?? Allergies (NKA means No Known Allergies) Tylenol with Codeine??(rash) Vicodin??(vomiting) shellfish??(rash) Common Emergency Awareness Tips IS IT A STROKE? Act FAST and Check for these signs: FACE Does the face look uneven? ARM Does one arm drift down? SPEECH Does their speech sound strange? TIME Call at any sign of stroke ?? Heart Attack Signs Chest discomfort: Most heart attacks involve discomfort in the center of the chest and lasts more than a few minutes, or goes away and comes back. It can feel like uncomfortable pressure, squeezing, fullness or pain. Discomfort in upper body: Symptoms can include pain or discomfort in one or both arms, back, neck, jaw or stomach. Shortness of breath: With or without discomfort. Other signs: Breaking out in a cold sweat, nausea, or lightheaded. Remember, MINUTES DO MATTER. If you experience any of these heart attack warning signs, call to get immediate medical attention! ?? Smoking can increase your chances of developing chronic health problems and can cause harmful effects to other family members in your house. If you smoke, you are strongly encouraged to quit. Please call [employer] at [phone] or [phone] ([phone]) or log in to [email or web address] for referrals to smoking cessation programs. ?? The National Suicide Prevention Hotline is available 09/04 if you or someone you know needs to find a reason to keep living. By calling 4-015-525-[employer] (4053) you'll be connected to a skilled, trained counselor at a crisis center in your area. [facility] Portal You can view and manage your care through the patient portal or by using a health care eddie of your choosing. [employer] is a website that allows you to securely view your medical information including your hospital discharge summary, office visit summaries, medications and follow-up visits. You can also request appointments, renew medications, and request access to your medical information using a health care eddie of your choosing, or just ask a question. You can enroll at [email or web address] or register during your next office visit. [facility], in keeping with [facility] guidance, no longer requires face masks for staff, patientsor visitors in most situations. Similiar to time spent indoors at other locations, there is the chance that you were exposed to repiratory viruses during your time with us (such as flu or COVID-19). If you develop symptoms concerning for a viral respiratory infection, please seek testing (and treatment if indicated) from your medical provider or home test kit. ?? Disclaimer: The information provided is of a general nature and is intended to be used in conjunction with the recommendations and advice of your health care practitioner. Every effort has been made to ensure that the information provided is accurate and complete at the time it is provided to you however, as your needs change, or, as new information becomes available, different or additional instructions may be required. ?? If you have questions, please consult with your primary care provider or pharmacist, as appropriate. This information is not intended to serve as substitution for assessment and evaluation by a qualified health care provider. If you do not have a primary care provider, you may find a [facility] provider by calling [facility] at [phone]. Patient Care team information Care Team Personnel Name: Michoacano Thorne MD Position: [facility] Physician - Gastroenterology Member Role: Lifetime Consulting Physician Address: [address] [place] [address], [address] [facility] [place] [address]- Telecom: Name: Jessica Gu RN Position: [facility] RN Member Role: Primary Care Nurse Name: Annalise Whitman RN Position: [facility] Nurse Member Role: Primary Care Nurse Name: Levi Ulloa MD Position: [facility] Physician - Primary Care Member Role: PCP Address: [address] [place] [id number] Telecom: Name: Ashley Gillette RN Position: [facility] RN Member Role: Primary Care Nurse Name: Maura Kim RN Position: [facility] RN Member Role: Primary Care Nurse Name: Eden Parham RN Position: [facility] Onco RN Member Role: Primary Care Nurse Name: Cathy Nuñez RN Position: [facility] RN Member Role: Primary Care Nurse Name: Soraida Mai RN Position: [facility] Onco RN Member Role: Primary Care Nurse Name: Kellee Ramirez RN Position: [facility] RN Member Role: Primary Care Nurse Name: Stephanie Rahman RN Position: [facility] RN Member Role: Primary Care Nurse Name: Sherry Martinez [place] Position: [facility] Office Staff Member Role: Primary Care Nurse Name: Noa Catalan RN Position: [facility] RN Member Role: Primary Care Nurse Name: Sarai HOLT Alisha Position: [facility] Amb Office Staff Member Role: Primary Care Nurse Name: Qi Childress RN Position: [facility] RN Member Role: Primary Care Nurse Name: Lacy Martinez RN Position: [facility] ED RN W/OE and Tasks Member Role: Primary Care Nurse Name: Xochitl Baig RN Position: [facility] RN Member Role: Primary Care Nurse Name: Dianne Hurt RN Position: [facility] RN Member Role: Primary Care Nurse Name: Dixon RNShelly Position: [facility] Onco RN Member Role: Primary Care Nurse Name: Shawn Jeffrey RN Position: [facility] SN RN Member Role: Primary Care Nurse Name: Sadie Boykin RN Position: [facility] AMB Nurse Member Role: Primary Care Nurse Name: Katlin Esteban RN Position: [facility] ED RN W/OE and Tasks Member Role: Primary Care Nurse Name: Lyudmila Leone Position: [facility] RN Supv Member Role: Primary Care Nurse Name: Prudencio Da Silva RN Position: [facility] RN Member Role: Primary Care Nurse Name: Karly Johnson RN Position: [facility] RN Member Role: Primary Care Nurse Name: Giselle Ward RN Position: [facility] RN Member Role: Primary Care Nurse Name: Kellee Wen RN Position: [facility] RN Member Role: Primary Care Nurse Name: Zully Mcghee RN, I Position: [facility] RN Member Role: Primary Care Nurse Care Team Related Persons Name: ELOISA ESPINOZA Name: ELOISA GARZON Name: CAROLYNN GARZON Name: BARBARA FIGUEROA Name: LUIS MIGUEL CREWS Insurance Providers Guarantor name: YONATHAN ELEONORA Health Plan Information #: 1 Payer: [facility] Member Number: [id number] Policy Number: NA Group Number: [id number] Health Plan Information #: 2 Payer: [facility] Member Number: [id number] Policy Number: NA Group Number: [id number]
== END 2024-08-21 10:31 | disposition home or self-care (01) ==
PROVIDERS: PCP Internal Medicine; Visit Provider Physician Assistant Surgical
DX: E66.811 Obesity, class 1 (principal); Z68.31 Body mass index [BMI] 31.0-31.9, adult; Z90.3 Acquired absence of stomach [part of]; Z98.84 Bariatric surgery status
CPT/HCPCS: 99214; G2211

== ENCOUNTER 2024-12-18 15:47 | Outpatient (AMB) | payer OTHER, SELFPAY ==
[2024-12-18 15:51] VITALS: BP 129/80; PULSE 70; O2SAT 98; BMI 32.7
--- NOTE | 2024-12-18 15:52 | MHC.OFFVISWM ---
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 She is status post panniculectomy on 12/12/2022 and sleeve gastrectomy on 08/25/2020. The panniculectomy was performed by Dr. Philippe and the sleeve gastrectomy was performed by Dr. Freeman. Weight today is 190.4 lb corresponding to a BMI of 33.7 Doing bariatric fusion multi vitamin Also complaining of excess skin of bilateral thighs, causing rubbing and discomfort with clothing. She has had intermittent rash in the groin that improves with clotrimazole cream. She has been having intermittent constipation and is followed by gastroenterology, Dr Thorne for her underlying Crohn's disease. Colonoscopy sunday and endometriosis bx and bladder sling yesterday. Had L5 laminoplasty surgery 11/02/23- spine surgery - dr geovanni TIER[place], still sore and not back to work or able to exercise. F/U 09/04/24, referred to [facility], saw them early October and she was sent for EMG. That was done end of October. EMG reported nerve damage in C6, C7, C8. No evidence of carpal tunnel. Next step is 12/31/24 epidural injection by [facility]. Dr Brantley. She continues to have bad pain in next and numbness to R>L hands and arms. She is unable to do recumbent bike due to pain on shoulders while sitting. She states she has been using [employer]life RTD 30 gm shake. She does not know why she is gaining weight, not following the meal plan exactly, cottage cheese w strawberries at home. Having 8 forks of protein, no vegetables. Now using Premier protein powder 1 scoop if not using fairlife RTD shake Meal plan: Using fairlife, 30 gm ready to drink shakes, 7-9 half the shake mixed with 6 oz of water 11-1 built bar 2-4 the other half of the shake 6pm, meal with 7 forks of protein and 7 forks of vegetables. Drinking 40 oz of water daily. Exercise plan: none in a month [facility] Medical History Intestinal malabsorption following gastrectomy Wears partial dentures Lab test negative for COVID-19 virus Shortness of breath Obesity (BMI 30-39.9) Obstructive sleep apnea Chronic back pain DDD (degenerative disc disease) Hypothyroidism Depression Anxiety Crohn's disease Type II diabetes mellitus Surgical History S/P placement of nerve stimulator History of sleeve gastrectomy History of bilateral tubal ligation History of fusion of cervical spine Other specified postprocedural states History of Achilles tendon repair History of section History of laparoscopic cholecystectomy Family History Father No problems noted. Mother Diabetes mellitus Brother No problems noted. Brother No problems noted. Brother No problems noted. Brother No problems noted. Brother No problems noted. Sister Type I diabetes mellitus Sister No problems noted. Son No problems noted. Son No problems noted. Son No problems noted. Daughter No problems noted. Daughter No problems noted. Social History Household Members: Significant Other Housing: House Are you a primary child daycare worker to a significant other at home: No Do you presently have visiting nurse or other home services: No Alcohol intake: never Comment: sleeping Patient Tobacco Use Status: Never used Tobacco Advance Directives Date on File: 08/15/16 service: No Current occupational status: employed Physical Exam Const General: healthy appearing and no acute distress Resp Effort & Inspection: normal respiratory effort Auscultation: clear to auscultation bilaterally Cardio Rate: regular rate Rhythm: regular rhythm GI Auscultation: normal bowel sounds Extrem General: Yes normal to inspection Assessment & Plan Assessment & Plan (1) S/P laparoscopic sleeve gastrectomy: Code(s): Z98.84 - Bariatric surgery status Category: Surgical Plan: Patient has gained weight. She has been unable to exercise due to complaints of pain in her cervical spine. She is addressing this through outside providers. Discussed joining [facility] so that she may utilize the pool, walking in the pool to decrease any pain or pressure on her spine. She will look into this. She will additionally follow-up with her spine providers. Encouraged to text with any questions or concerns. Follow-up in 2 months
--- OUTSIDE RECORDS SUMMARY | 2024-12-18 16:58 | XMS_ITS | Clinical Summary ---
Author Organization [facility] ity Address [address] [place] [address] Care Team Providers Care Spa Coordinator Name Role Phone Unavailable Primary Care Provider Unavailabl e Social History Tobacco Use Types Packs/Day Years Used Date Smoking Tobacco: Never Assessed Comments Unknown Sex and Gender Information Value Date Recorded Sex Assigned at Not on file Legal Sex Female 5:58 AM EST Gender Identity Not on file Sexual Orientation Not on file Plan of Treatment Health Maintenance Due Date Last Done Comments Breast Cancer Screening 1975 DTaP,Tdap,and Td Vaccines (1 - Tdap) 1994 Hepatitis B Vaccines (1 of 3 - 19+ 3-dose series) 1994 Cervical Cancer Screening: P ap Smear 1996 COVID-19 Vaccine (2023-2 5 season) 2024 Influenza Vaccine (Season Ended) 2025 HIB Vaccines Aged Out No longer eligi ble based on patient's age to complete this topic HPV Vaccines Aged Out No longer eligi ble based on patient's age to complete this topic Hepatitis A Vaccines Aged Out No long er eligible based on patient's age to complete this topic IPV Vaccines Aged Out No longer eligi ble based on patient's age to complete this topic MMR Vaccines Aged Out No longer eligi ble based on patient's age to complete this topic Meningococcal ACWY Vaccine Aged Out N o longer eligible based on patient's age to complete this topic Meningococcal B Vacine Aged Out No lo nger eligible based on patient's age to complete this topic Pneumococcal Vaccine: Pediat rics (0 to 5 Years) and At-Risk Patients (6 to 64 Years) Aged Out No longer eligible b ased on patient's age to complete this topic RSV Immunization Patients Un shad 20 months Aged Out No longer eligible b ased on patient's age to complete this topic Varicella Vaccines Aged Out No longer eligible based on patient's age to complete this topic
--- OUTSIDE RECORDS SUMMARY | 2024-12-18 16:58 | XMS_ITS | Data Portability ---
Author Organization [facility], [facility] Address [address] [place] [address] Care Team Providers Care Top Case Assembler Name Role Phone BHAVANA ROYAL Primary Care Provider Assessment No assessment recorded. Plan of Treatment Reminders Order Date Submit Date Provider Last Modified By Organization Details Last Modified Time Details Appointments RECHECK 15 2024 02:30P M Mino Henao MD Not available Not available Not available Lab None recorded. Referral physical therapist referral - Evaluate & Rx. Patient is 6 weeks s/o posterior cervical fusion Cervical Stabiliza tion Program 2023 024 [email or web address] Not available 12/28/2023 16:09:58 Procedures None recorded. Surgeries None recorded. Imaging XR, cervical spine, 2 or 3 view - 327 cspine 2v 2023 024 [email or web address] 4 [facility], [address], [address], [place], [address], 09/02/2024 17:04:52 XR, cervical spine, 2 or 3 view - 325 recheck c-spine 2v 2023 024 [email or web address] 4 [facility], [address], [address], [place], [address], 04/29/2024 19:00:46 XR, cervical spine, 2 or 3 view - 325 post op c-spine 2v 2023 024 [email or web address] 4 [facility], [address], [address], [place], [address], 01/29/2024 13:12:07 XR, cervical spine, 2 or 3 view - 327 global 2v c-spine 2023 024 [email or web address] 50 [facility], [address], [address], [place], [address], 12/28/2023 16:09:58 Medication Orders tizanidin e 4 mg tablet 2023 024 [email or web address] 4 [facility]/Pharmacy #[id number], [address] [facility] [place], [address], 09/02/2024 17:04:52 tizanidin e 4 mg tablet 2023 024 [email or web address] 4 [facility]/Pharmacy #[id number], [address] [facility] [place], [address], 04/29/2024 19:00:46 Lyrica 75 mg capsule 2023 024 [facility]/Pharmacy #[id number], [address] [place], [address], 12/13/2023 16:08:35 oxycodone 10 mg tablet 2023 024 [facility]/Pharmacy #[id number], [address] [place], [address], 12/13/2023 16:08:35 cyclobenz aprine 5 mg tablet 2023 024 [email or web address] [facility]/Pharmacy #[id number], [address] [place], [address], 12/13/2023 16:04:36 Patient TargetsNo targets recorded. Patient InstructionsNo instructions recorded. Reason for Referral Physical Therapist Referral for Postoperative care Evaluate & Rx. Patient is 6 weeks s/o posterior cervical fusion Cervical Stabilization Program Referring Physician: Mino Henao, Orthopedic Surgery, [id number] Encounter Date: 12/13/2023 Results Created Date Observation Date Name Description Value Unit Range Abnormal Flag Note LastModifiedBy Organization Detail LastModifiedTime 08/13/20 24 04/29/2024 XR, cervi darrick spine , 2 or 3 view [email or web address]:/ [email or web address] ?Encry pted=s hAaTro YD8dLq bEUv6g %2BXZw aYqtaq 0bqfl% 2Fg9IQ a4ajBk vP9nXo QUaueC m3YtLR FvZlgJ JJ8mAn HZtai3 1h7119 AC0KoY nqHVab eUC8mr 84%3D INTERFACE [facility] [address], [place], [address], 04/29/2024 16:07:24 04/29/20 24 04/29/2024 XR, cervi darrick spine , 2 or 3 view http:/ [email or web address] ?Encry pted=s hAaTro YD8dLq bEUv6g %2BXZw aYqtaq 0bqfl% 2Fg9IQ a4ajBk vP9nXo QUaueC m3YtLR FvZlgJ JJ8mAn HZtai3 9o0954 AC0KoY nqHVab eUC8mr 84%3D INTERFACE [facility] [address], [place], [address], 04/29/2024 16:07:26 05/17/20 24 03/22/2021 imagi ng/di agnos tic resul t No observ ation record ed. [email or web address] Not Available 04/19 05:07:47 05/17/20 24 05/26/2020 imagi ng/di agnos tic resul t No observ ation record ed. [email or web address] Not Available 04/19 05:07:48 05/17/20 24 07/21/2019 imagi ng/di agnos tic resul t No observ ation record ed. [email or web address] Not Available 04/19 05:07:49 05/17/20 24 05/26/2020 imagi ng/di agnos tic resul t No observ ation record ed. [email or web address] Not Available 04/19 05:07:54 05/17/20 24 07/05/2023 imagi ng/di agnos tic resul t No observ ation record ed. [email or web address] Not Available 04/19 05:08:39 05/17/20 24 09/03/2023 imagi ng/di agnos tic resul t No observ ation record ed. [email or web address] Not Available 04/19 05:08:48 09/02/20 24 09/02/2024 XR, cervi darrick spine , 2 or 3 view http:/ [email or web address] ?Encry pted=s hAaTro YD8dLq bEUv6g %2BXZw aYqtaq 0bqfl% 2Fg9IQ a4ajBk vP9nXo QUaueC m3YtLR Zl [address] Streettai[address] [address] AC0Kqb n6GVaa vKiQtr MwF INTERFACE [facility] [address], [place], [address], 09/02/2024 11:10:49 09/02/20 24 09/02/2024 XR, cervi darrick spine , 2 or 3 view http:/ [email or web address] ?Encry pted=s hAaTro YD8dLq bEUv6g %2BXZw aYqtaq 0bqfl% 2Fg9IQ a4ajBk vP9nXo QUaueC m3YtLR [place] [address] AC0Kqb n6GVaa vKiQtr MwF INTERFACE [facility] [address], [place], [address], 09/02/2024 11:10:52 Result Notes None recorded. Problems Name Problem SNOMED Code Status Onset Date Resolution Date Notes Provider Name and Address Organization Details Recorded Time No complaints 259590661 Active Status : 'A'; Not Available [facility] 09:25:22 Neck pain 81796089 Active 2023 Mino Henao MD [address], [place], [address] , [facility] 11:33:30 Myelopathy due to cervical spondylosis 7131914934 Active 2023 Mino Henao MD [address], [place], [address] , [facility] 4 11:18:47 Problem Notes None recorded. Procedures Surgical History None recorded. Imaging Results Imaging Date Name Status LastModified by [facility] Details LastModified Time 04/29/2024 XR, cervical spine, 2 or 3 view completed INTERFACE [facility] [address], [place], [address], 04/29/2024 16:07:24 04/29/2024 XR, cervical spine, 2 or 3 view completed [facility] [address], [place], [address], 04/29/2024 16:07:26 03/22/2021 imaging/diagn ostic result completed Information not available 05/17/2024 05:07:47 05/26/2020 imaging/diagn ostic result completed Information not available 05/17/2024 05:07:48 07/21/2019 imaging/diagn ostic result completed Information not available 05/17/2024 05:07:49 05/26/2020 imaging/diagn ostic result completed Information not available 05/17/2024 05:07:54 07/05/2023 imaging/diagn ostic result completed Information not available 05/17/2024 05:08:39 09/03/2023 imaging/diagn ostic result completed Information not available 05/17/2024 05:08:48 09/02/2024 XR, cervical spine, 2 or 3 view completed [facility] [address], [place], [address], 09/02/2024 11:10:49 09/02/2024 XR, cervical spine, 2 or 3 view completed [facility] [address] [facility] [address], [place], [address], 09/02/2024 11:10:52 Procedure Notes None recorded. Medical Equipment None Reported. Allergies Allergen ID Allergen Name Allergen Category Reaction Reaction Severity Criticality Documentation Date Start Date Code Code System Note Provider Name and Address Organization Details Recorded Time 272909 codeine medicatio n rash moderate Not available 04/29/2024 2670 RxNorm KRISTA DUNN [facility] 15:50:58 974699 acetamino phen / hydrocodo ne medicatio n hives moderate Not available 04/29/2024 45192 2 RxNorm KRISTA DUNN [facility] 15:50:58 Medications Name Sig Start Date Stop Date Status Note LastModified by Organization Details LastModified Time vitamin b1 100 mg tabs active Not Available Not Available Not Available amoxicillin 500 mg capsule TAKE 1 CAPSULE BY MOUTH 3 TIMES A DAY UNTIL FINISHED active Not Available Not Available No t Available neomycin-po lymyxin-hyd rocort 3.5 mg/mL-10,00 0 unit/mL-1 % ear solution INSTILL 2 DROPS INTO BOTH EARS TWICE A DAY FOR 10 DAYS active Not Available Not Available No t Available tizanidine 2 mg tablet TAKE 1 TABLET BY MOUTH TWICE A DAY 04/23 completed Not Available Not Available Not Available clindamycin HCl 300 mg capsule TAKE 1 CAPSULE BY MOUTH TWICE DAILY (EVERY 12 HOURS). 04/23 completed Not Available Not Available Not Available azithromyci n 250 mg tablet TAKE 2 TABLETS BY MOUTH TODAY, THEN TAKE 1 TABLET DAILY FOR 4 DAYS DIRECTED active Not Available Not Available No t Available tizanidine 4 mg tablet Take 1 tablet twice a day by oral route as needed for 14 days. active Not Available Not Available No t Available senna 8.6 mg tablet TAKE 2 TABLETS BY MOUTH DAILY AT BEDTIME NEEDED FOR CONSTIPAT ION 04/23 completed Not Available Not Available Not Available prednisone 20 mg tablet PLEASE SEE ATTACHED FOR DETAILED DIRECTION S active Not Available Not Available No t Available estradiol 0.05 mg/24 hr weekly transdermal patch APPLY 1 PATCH TOPICALLY ONCE WEEKLY active Not Available Not Available No t Available clonazepam 1 mg tablet TAKE 1 TABLET BY MOUTH TWICE A DAY FOR 30 DAYS active Not Available Not Available No t Available thiamine HCl (vitamin B1) 100 mg tablet TAKE 1 TABLET BY MOUTH DAILY active Not Available Not Available No t Available penicillin V potassium 500 mg tablet TAKE 1 TABLET BY MOUTH THREE TIMES A DAY 04/23 completed Not Available Not Available Not Available azathioprin e 50 mg tablet TAKE 1 TABLET BY MOUTH EVERY DAY 04/23 completed Not Available Not Available Not Available phentermine 37.5 mg tablet TAKE 1 TABLET BY MOUTH EVERY DAY IN THE MORNING AT LEAST 1 HOUR BEFORE AFTER MEALS active Not Available Not Available No t Available sulfamethox azole 800 mg-trimetho prim 160 mg tablet active Not Available Not Available Not Available peg-electro lyte solution 420 gram oral solution PLEASE SEE ATTACHED FOR DETAILED DIRECTION S 04/23 completed Not Available Not Available Not Available acetaminoph en 500 mg tablet TAKE 1 TABLET BY MOUTH EVERY 4 TO 6 HOURS NEEDED active Not Available Not Available No t Available bupropion HCl SR 100 mg tablet,12 hr sustained-r elease TAKE 1 TABLET BY MOUTH TWICE A DAY FOR 30 DAYS active Not Available Not Available No t Available hydromorpho ne 2 mg tablet TAKE 1 TABLET BY MOUTH EVERY 4 HOURS NEEDED FOR PAIN active Not Available Not Available No t Available famotidine 20 mg tablet TAKE 1 TABLET BY MOUTH EVERY DAY active Not Available Not Available No t Available methocarbam ol 750 mg tablet TAKE 1 TABLET BY MOUTH 3 TIMES A DAY FOR 14 DAYS active Not Available Not Available No t Available trazodone 100 mg tablet TAKE 1 AND 1/2 TABLETS BY MOUTH DAILY AT BEDTIME 04/23 completed Not Available Not Available Not Available phenazopyri dine 100 mg tablet TAKE 1 TABLET BY MOUTH THREE TIMES A DAY NEEDED FOR PAIN FOR 3 DAYS active Not Available Not Available No t Available doxycycline monohydrate 100 mg capsule TAKE 1 CAPSULE BY MOUTH TWICE A DAY FOR 14 DAYS 04/23 completed Not Available Not Available Not Available bisacodyl 10 mg rectal suppository INSERT 1 SUPPOSITO RY RECTALLY DAILY NEEDED FOR CONSTIPAT ION 04/23 completed Not Available Not Available Not Available cephalexin 500 mg capsule TAKE 1 CAPSULE BY MOUTH EVERY 12 HOURS 04/23 completed Not Available Not Available Not Available buspirone 10 mg tablet TAKE 1 TABLET BY MOUTH THREE TIMES A DAY active Not Available Not Available No t Available docusate sodium 100 mg capsule TAKE 1 CAPSULE BY MOUTH EVERY DAY NEEDED active Not Available Not Available No t Available mirtazapine 15 mg tablet TAKE 1/2 TABLET BY MOUTH DAILY AT BEDTIME FOR 90 DAYS active Not Available Not Available No t Available ibuprofen 600 mg tablet TAKE 1 TABLET BY MOUTH FOUR TIMES DAILY NEEDED FOR PAIN active Not Available Not Available No t Available hydromorpho ne 4 mg tablet TAKE 1 TABLET BY MOUTH EVERY 8 HOURS DIRECTED FOR 7 DAYS 04/23 completed Not Available Not Available Not Available fluoxetine 20 mg capsule TAKE 1 CAPSULE BY MOUTH EVERY DAY active Not Available Not Available No t Available clotrimazol e 1 % topical cream APPLY TOPICALLY TWICE DAILY NEEDED FOR RASH FOR 7 DAYS active Not Available Not Available No t Available Ventolin HFA 90 mcg/actuati on aerosol inhaler INHALE 2 PUFFS EVERY 6 HOURS NEEDED FOR SHORTNESS OF BREATH OR WHEEZING active Not Available Not Available No t Available cyclobenzap rine 5 mg tablet TAKE 1 TABLET BY MOUTH TWICE A DAY FOR 14 DAYS 04/23 completed Not Available Not Available Not Available bupropion HCl XL 300 mg 24 hr tablet, extended release TAKE 1 TABLET BY MOUTH EVERY DAY active Not Available Not Available No t Available bupropion HCl XL 150 mg 24 hr tablet, extended release TAKE 1 TABLET BY MOUTH EVERY 24 HOURS FOR 90 DAYS active Not Available Not Available No t Available pregabalin 25 mg capsule active Not Available Not Available Not Available pregabalin 75 mg capsule TAKE 1 CAPSULE BY MOUTH TWICE A DAY active Not Available Not Available No t Available chlorhexidi ne gluconate 0.12 % mouthwash RINSE MOUTH WITH 15ML (1 CAPFUL) FOR 30 SECONDS IN MORNING AND EVENING AFTER BRUSHING, THEN SPIT active Not Available Not Available No t Available metoclopram john HCl Metoclopr amide HCl 10MG Tablet 04/23 completed Statu s: 'Curr ent'; Not Available Not Available Not Available BD Ultra-Fine Short Pen Needle 31 gauge x 5/16 USE DIRECTED DAILY FOR TYPE 2 DIABETES MELLITUS active Not Available Not Available No t Available FreeStyle Lite Strips USE DIRECTED FOR TYPE 1 DIABETES MELLITUS. PT TO TEST 3-4 TIMES DAILY. DX E11.65 04/23 completed Not Available Not Available Not Available oxycodone 10 mg tablet PLEASE SEE ATTACHED FOR DETAILED DIRECTION S active Not Available Not Available No t Available cholecalcif mik (vitamin D3) 50 mcg (2,000 unit) capsule TAKE 1 CAPSULE BY MOUTH EVERY DAY 04/23 completed Not Available Not Available Not Available oxycodone HCl-oxycodo ne-ASA as directed TAKE 1 TAB Q 4-6H PRN PAINDO NOT DRIVE WHILE TAKING THIS MEDICATIO N 2017 active Statu s: 'Curr ent'; Not Available Not Available Not Available Gavilax 17 gram/dose oral powder MIX AND DRINK 17 GM BY MOUTH DAILY. TITRATE THE DOSE EVERY 5-7 DAYS TO TARGET ONE SOFT STOOL DAILY. active Not Available Not Available No t Available Victoza 3-Henrry 0.6 mg/0.1 mL (18 mg/3 mL) subcutaneou s pen injector INJECT 1.8 MG SUBCUTANE OUSLY DAILY. active Not Available Not Available No t Available Liletta 20.4 mcg/24 hr (up to 8 years) 52 mg intrauterin e device active Not Available Not Available Not Available Paxlovid 300 mg (150 mg x 2)-100 mg tablets in a dose pack PLEASE SEE ATTACHED FOR DETAILED DIRECTION S active Not Available Not Available No t Available Vitals Date Recorded Body height Body mass index (BMI) Body weight Provider Name and Address Organization Details Last Updated DateTime 04/29/2024 162.56 cm 30.4 kg/m2 30898.85 g KRISTA DUNN [facility] 04/29/2024 15:51:18 Date Recorded Body height Provider Name an d Address Organization Details Last Updated DateTime 09/02/2024 162.56 cm Emily pantoja [facility] 09/02/2024 11:04:57 Social History Question Answer Notes LastModified by Organizat ion Details LastModified Time Tobacco Smoking Status Never Smoker KRISTA lux [facility] 04/29/2024 15:51:08 How Many Times Per Week Do You Consume Alcohol? Less Than 1 Time Per Week lorie Information not available 04/29/2024 Do You Or Have You Ever Used E-cigarettes Or Vape? Never Used Electronic Cigarettes [email or web address] Information not available 04/29/2024 What Is Your Relationship Status? Information not available 04/29/2024 Do You Use Any Illicit Or Recreational Drugs? No Information not available 04/29/2024 Do You Or Have You Ever Used Any Other Forms Of Tobacco Or Nicotine? No Information not available 04/29/2024 Sex: Unknown Functional Status None recorded. Mental Status None recorded. Family History Nothing Reported. Medical History No medical history recorded. Gynecological HistoryNo gynecological history recorded. Obstetrics History GPAL:G 0 P 0 0 0 0 Past Encounters Encounter ID Performer Location Encounter Start Date Encounter Closed Date Diagnosis/Indication Diagnosis SNOMED-CT Code Diagnosis ICD10 Code Diagnosis Note [id number] Mino Henao MD [facility] [address] [place] [address] 12/13/2023 13:47:26 12/28/2023 16:09:58 Postoperative care 996849487 Z48.89 Myelopathy due to cervical spondylosis 3344377166 M47.12 48-year-ol d female approximat franny 6 weeks status post cervical laminectom y and laminoplas ty with continued pain and right upper extremity numbness and tingling. I had a long discussion about pain avoidance behaviors. I will refer her to physical therapy for gentle range of motion and scar desensitiz ation. Additional ly I will give her 1 last prescripti on for oxycodone. I will refill her Lyrica. I will prescribe cyclobenza maria r. She will continue taking acetaminop hen routinely. She will follow-up in 6 weeks. Gradually increase activities as tolerated. She will remain off work for 6 weeks. [id number] Mino Henao MD [facility] [address] [place] [address] 01/29/2024 10:12:56 02/20/2024 15:34:01 Neck pain 37888693 M54.2 Postoperative care 73188 9007 Z48.89 Myelopathy due to cervical spondylosis 4524970715 M47.12 48-year-ol d female approximat franny 3 months status post cervical laminectom y and laminoplas ty. She is improving. I will prescribe Tizanidine . She will continue taking acetaminop hen routinely. She will follow-up in 3 months. RTW tomorrow with 4 hours days and 10 pound lift restrictio n for two weeks then increase to 8 hour days. [id number] Mino Henao MD [facility] [address] [place] [address] 04/29/2024 15:11:27 05/24/2024 06:21:45 Myelopathy due to cervical spondylosis 8207910968 M47.12 [id number] Mino Henao MD [facility] [address] [place] [address] 09/02/2024 10:26:59 09/27/2024 09:39:25 Myelopathy due to cervical spondylosis 0218178839 M47.12 Neck pain 03208397 M54.2 Health Concerns Section Related Observation LastModified by Organization Detai ls LastModified Time None Recorded Concern Status LastModified by Organization Details LastModified Time None Recorded Advance Directives Directive None Recorded Payers Encounter Date Sequence Insurance Name Policy Number Policy Qureshi Covered Member ID Qureshi Member ID Guarantor Name 12/13/2023 1 [facility] [id number] Macey A Jeanette [id number] Macey A Jeanette 01/29/2024 1 [facility]) [id number] Macey A Jeanette [id number] Macey A Jeanette 04/29/2024 1 [facility] [id number] Macey A Jeanette [id number] Macey A Jeanette 09/02/2024 1 [facility]) [id number] Macey A Jeanette [id number] Macey A Jeanette Notes Date Note Type Note Provider Name and Address Organization Details Recorded Time 4 text/html 48-year-old female follows up 6 weeks postop C3 and T1 laminectomy with C4-7 laminoplasty. She has had a rough postoperative course. Today she still complains of neck pain and decreased range of motion. Additionally she complains of right hand numbness and tingling. She has improved significantly since last visit however. Mino Henao MD [address], [place], [address], [facility] 12/13/2023 16:08:42 4 text/html 48-year-old female follows up 6 weeks postop C3 and T1 laminectomy with C4-7 laminoplasty on 11/02/23. She has had a rough postoperative course. Today she still complains of neck pain and decreased range of motion however improving. Additionally She complains of right hand numbness and tingling in the MF and RF. She has improved significantly since last visit however and has been in PT. Wants to RTW tomorrow. Mino Heano MD [address] [facility] [address], [place], [address], [facility] 01/29/2024 11:19:12 4 text/html [id number] female follows up 6 months postop C3 and T1 laminectomy with C4-7 laminoplasty on 11/02/23. She has had a rough postoperative course. Today she still complains of neck pain and right hand numbness and tingling. She has returned. Oxycodone as needed ROSROS as noted in the HPI Physical ExamConstitutional: General Appearance: healthy-appearing and NAD.Psychiatric: Orientation: oriented to time, place, and person. Mood and Affect: normal mood and affect.Cardiovascular System: Arterial Pulses Right: Normal radial pulse. Arterial Pulses Left: Normal radial pulse. Edema Right: none. Edema Left: none. Gait and Station: Gait And Stance normal stance, no limp, and ambulating with no assistive devices. Neurological System: Biceps Reflex Right: normal (2). Biceps Reflex Left: normal (2). Brachioradialis Reflex Right: normal (2). Brachioradialis Reflex Left: normal (2). Triceps Reflex Right: normal (2). Triceps Reflex Left: normal (2). Sensation on the Right: normal median nerve distribution and ulnar nerve distribution and C5 normal, C6 normal, C7 normal, C8 normal, T1 normal, and distal extremities normal. Sensation on the Left: normal median nerve distribution and ulnar nerve distribution and C5 normal, C6 normal, C7 normal, C8 normal, T1 normal, and distal extremities normal. Cervical Spine: Inspection: Minimal muscular diastasis over the incision.alignment normal and no muscle atrophy. Bony Palpation: no tenderness of the occipital protuberance or the spinous process. Active Range of Motion: rotation to the left (___ deg.) and the right (Decreased deg.), flexion (Decreased deg.) and extension (Decreased deg.), and no crepitus; Mildly decreased ROM in all planes. Motor Strength: C5 on the Right: abduction deltoid 5/5. C5 on the Left: abduction deltoid 5/5. C6 on the Right: flexion biceps 5/5. C6 on the Left: flexion biceps 5/5. C7 on the Right: extension triceps 5/5. C7 on the Left: extension triceps 5/5. C8 on the Right: flexion fingers 5/5. C8 on the Left: flexion fingers 5/5. Skin: Head and Neck: normal; Posterior cervical scar healing well. Minimal diastases. No signs of infection. Scar tenderness.. Right Upper Extremity: normal. Left Upper Extremity: normal. I independently reviewed 2 view radiographs of the cervical spine obtained today to include AP and lateral and note anterior cervical interbody fusion with interbody cage well fused and laminoplasty plates without evidence of loosening or loss of fixation. No kyphosis. Assessment / [id number] female approximately 6 months status post cervical laminectomy and laminoplasty. She is improving but seems to have plateaued. I will prescribe Tizanidine. She will continue taking acetaminophen routinely. Follow-up in 4-months Mino Henao MD [address] [place] [address] [address], [place], [address], [facility] 04/29/2024 16:52:50 4 text/html [id number] female follows up for cervical stenosis 10 months postop C3 and T1 laminectomy with C4-7 laminoplasty on 11/02/23. She has had a rough postoperative course. Today she still complains of neck pain mostly bilateral trapezius and right hand numbness and tingling. She has returned to work. Oxycodone as needed. Denies bowel/bladder incontinence and saddle anesthesia.?PFMSH and ROS has been reviewed, updated, and is located in the patient? s chart.?Physical ExamRespiration Rate 14-16Height and Weight per aboveNormal Development without evidence of gross deformitiesOriented to person/place/timeNormal mood and affectNormal Heel and Toe GaitHead and Neck:Normocephalic. Neck was supple without evidence of defects.?Spine:Exam ination of the cervical spine demonstrated no crepitation with palpation of the spinous process.The patient was able to touch their chin to their chest and extend to look at the ceiling.No instability of the spine was demonstrated on physical exam. The spine had good strength and tone. Healed posterior cervical incision. Mild trapezial tenderness.?Right Upper Extremity:The patient was able to abduct their arm to 100 degrees.No evidence of shoulder instability.?Streng Exam:5/5 shoulder abduction5/5 elbow flexion5/5 elbow extension5/5 wrist extension5/5 finger flexion5/5 hand intrinsics.?Left Upper Extremity:No defects or tenderness. The patient was able to abduct their arm to 100 degrees. No evidence of shoulder instability.?Streng th Exam:5/5 shoulder abduction5/5 elbow flexion5/5 elbow extension5/5 wrist extension5/5 finger flexion5/5 hand intrinsics?Biceps and brachioradialis were 2+ and symmetric. Negative Hoffmanns test.Sensation intact from C5-T1.?IMAGING AND DIAGNOSTIC TESTS:I independently reviewed 2 view radiographs of the cervical spine obtained today to include AP and lateral and note C5-6 and C6-7 with anterior cervical interbody fusion with interbody cage well fused and laminoplasty plates without evidence of loosening or loss of fixation. No kyphosis. Assessment / [id number] female with cervical stenosis approximately 10 months status post cervical laminectomy and laminoplasty. She was improving but seems to have plateaued. I will prescribe Tizanidine. She will continue taking acetaminophen routinely. I will also refer her to [facility] to be evaluated and treated with targeted injections. Follow-up in 3-months Mino Henao MD [address] [place] [address] [address], [place], [address], [facility] 09/02/2024 11:33:45 OBGyn Episode No OBEpisode recorded.
== END 2024-12-18 16:25 | disposition home or self-care (01) ==
LOC: HO.HBS 15:48
PROVIDERS: PCP Internal Medicine; Visit Provider Physician Assistant Surgical
DX: E66.811 Obesity, class 1 (principal); Z68.32 Body mass index [BMI] 32.0-32.9, adult; Z90.3 Acquired absence of stomach [part of]; Z98.84 Bariatric surgery status
CPT/HCPCS: 99213

== ENCOUNTER → 2024-12-18 15:47 | Outpatient (BNVA) | payer OTHER, SELFPAY | PROVIDERS: PCP Internal Medicine; Visit Provider Physician Assistant Surgical | DX: E66.9 Obesity, unspecified (principal); Z71.3 Dietary counseling and surveillance; Z98.84 Bariatric surgery status | CPT/HCPCS: 99212 ==

== ENCOUNTER 2025-02-26 15:30 | Outpatient (AMB) | payer OTHER, SELFPAY ==
--- NOTE | 2025-02-26 15:34 | A.OFFVIS_ITS ---
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: No Allergies codeine [CODEINE] Allergy (Intermediate, Verified 02/26/25 15:38) HIVES, rash hydrocodone [From VICODIN] Allergy (Intermediate, Verified 02/26/25 15:38) HIVES shellfish derived Allergy (Intermediate, Verified 02/26/25 15:38) swollen Medication List - Last Reconciled 02/26/25 by TYLER Rogers albuterol sulfate 90 mcg/actuation 2 puffs inhalation QID PRN bisacodyl (Dulcolax (bisacodyl)) 10 mg MS DAILY PRN bupropion HCl XL 150 mg PO DAILY buspirone 10 mg PO TID clonazepam 1 mg PO BID PRN clotrimazole 1% (Antifungal (clotrimazole)) 1 appl topical BID PRN famotidine (Pepcid) 20 mg PO DAILY fluoxetine 20 mg PO DAILY hydromorphone mg PO infliximab (Remicade) IV Q8W inulin 2 grams PO DAILY levothyroxine 75 mcg PO DAILY mirtazapine (Remeron) 15 mg PO BEDTIME jixtzabajuhm-utc-tmea-FA-vit K 45 mg iron- 800 mcg-120 mcg (Bariatric Multivitamins) 1 cap PO DAILY HPI Comments Details: Patient is a pleasant 49-year-old female who returns to the office today in follow-up. She is status post panniculectomy on 12/12/2022 and sleeve gastrectomy on 08/25/2020. The panniculectomy was performed by Dr. Philippe and the sleeve gastrectomy was performed by Dr. Freeman. Weight today is 192 lb corresponding to a BMI of 32.9 Doing bariatric fusion multi vitamin Also complaining of excess skin of bilateral thighs, causing rubbing and discomfort with clothing. She has had intermittent rash in the groin that improves with clotrimazole cream. She has been having intermittent constipation and is followed by gastroenterology, Dr Thorne for her underlying Crohn's disease. Colonoscopy sunday and endometriosis bx and bladder sling yesterday. Had L5 laminoplasty surgery 11/02/23- spine surgery - dr geovanni TIERNEY, still sore and not back to work or able to exercise. F/U 09/04/24, referred to [facility], saw them early October and she was sent for EMG. That was done end of . EMG reported nerve damage in C6, C7, C8. No evidence of carpal tunnel. Next step is 12/31/24 epidural injection by [facility]. Dr Brantley. SHe had that but it did not help. She continues to have bad pain in next and numbness to R>L hands and arms. [facility] sent her back to [facility] to get approval to get a trail with a differnet injection, that appt is set for 03/02/25. Additionally, she states she is getting a port placed on 03/04/2025 for IV access given her history of Crohn's disease She states she is not longer doing her fairlife RTD shake Now using Premier protein powder 1 scoop if not using fairlife RTD shake Now using 8-9 am quest iced coffe shake 10 gm protein 11-1105 am built bar 3-4 pm Fairlife rtd shake 30 gm protein 6 pm meal with 6-7 forks protein and 5 forks veg 7 pm slovenian yogurt (3 days per week) previous Meal plan: Using [employer], 30 gm ready to drink shakes, 7-9 half the shake mixed with 6 oz of water 11-1 built bar 2-4 the other half of the shake 6pm, meal with 7 forks of protein and 7 forks of vegetables. Drinking 60 oz of water daily. Exercise plan: recumbent bike at work 20 min PF gym membership [facility] Medical History Intestinal malabsorption following gastrectomy Wears partial dentures Lab test negative for COVID-19 virus Shortness of breath Obesity (BMI 30-39.9) Obstructive sleep apnea Chronic back pain DDD (degenerative disc disease) Hypothyroidism Depression Anxiety Crohn's disease Type II diabetes mellitus Surgical History S/P placement of nerve stimulator History of sleeve gastrectomy History of bilateral tubal ligation History of fusion of cervical spine Other specified postprocedural states History of Achilles tendon repair History of section History of laparoscopic cholecystectomy Family History Father No problems noted. Mother Diabetes mellitus Brother No problems noted. Brother No problems noted. Brother No problems noted. Brother No problems noted. Brother No problems noted. Sister Type I diabetes mellitus Sister No problems noted. Son No problems noted. Son No problems noted. Son No problems noted. Daughter No problems noted. Daughter No problems noted. Social History Household Members: Significant Other Housing: House Are you a primary animal care assistant to a significant other at home: No Do you presently have visiting nurse or other home services: No Alcohol intake: never Comment: sleeping Patient Tobacco Use Status: Never used Tobacco Advance Directives Date on File: 08/15/16 service: No Current occupational status: employed Physical Exam Const General: healthy appearing and no acute distress Resp Effort & Inspection: normal respiratory effort Auscultation: clear to auscultation bilaterally Cardio Rate: regular rate Rhythm: regular rhythm GI Auscultation: normal bowel sounds Extrem General: Yes normal to inspection Assessment & Plan Assessment & Plan (1) S/P laparoscopic sleeve gastrectomy: Code(s): Z98.84 - Bariatric surgery status Category: Surgical Plan: Overall discussed the importance of following meal plan specifically. She changed her meal plan without any significant advice. I suggested that she use only half of her fair life ready to drink shake. She was also given information regarding the right BMI eddie. more importantly, discussed exercise and how it directly relates to weight loss. While she has been able to use the recumbent bike for 20 minutes, this is more than she had been doing in the past, she is unable to check calories burned at her gym. She has a membership to [employer] and also has access to her [employer] swimming pool. Discussed walking the perimeter of the pool as this is an above ground pool, 30 times. Then doing her aquatic exercises, then doing another 30 times around the perimeter of the pool. Discussed going to [employer] daily, tracking calories with a goal of burning 300 per day. We will have her return to the office in approximately 6 weeks
[2025-02-26 15:41] VITALS: BP 129/74; PULSE 70; TEMP 36.1; O2SAT 97; BMI 33.0
--- OUTSIDE RECORDS SUMMARY | 2025-02-26 18:00 | XMS_ITS | Continuity of Care Document ---
Author Organization [facility] Address [address] [place] [id number]- Care Team Providers Care Package Pick Up Name Role Phone Levi Ulloa MD Primary Care Physician Encounter [facility] NBR [id number] Date(s): 01/23/25 - 02/22/25 [facility] [address] [place] [id number] Encounter Type: Triage Allergies, Adverse Reactions, Alerts Substance Criticality Severity Reaction Reaction Severity Status shellfish rash Active Vicodin vomiting Active Tylenol with Codeine rash Active Immunizations Given and Recorded Vaccine Date [...] Poly (PPV23) (oldterm) 08/31/10 Given 1Result Comment: [facility]: [id number] 2Result Comment: [facility]: [id number] 3Result Comment: [id number] 4Result Comment: [06/19/2018] [facility] [id number] 5Result Comment: [07/12/2016] given at [facility] [place] 6Result Comment: [07/16/2015] all screening questions answered 7Result Comment: [facility]: [id number] 8Admin Note: VIS GIVEN waiver signed and put to scanning 9Result Comment: [07/11/2017] [facility] [id number] Medications acetaminophen 500 mg oral tablet 1 tablet = 500 mg, By Mouth, Every 4 hours, PRN as needed for pain, # 50 tablet, 0 Refills, Maintenance, 02/25/24 4:44:00 PM EDT, Tablet, [id number], Partial fill upon patient requestif the prescription is for a schedule II opioid drug., 163, cm, 02/25/24 13:38:00 EDT, Height, 85.3, kg, 02/25/24 13:38:00 EDT, Dry Weight Start Date: 02/25/24 Status: Ordered Quantity: 50.0 Unit: tablet Repeat number: 1 busPIRone 10 mg oral tablet 10 mg, 1, tablet, By Mouth, 3 times a day, # 270 tablet, Refills 1, Tot. Refills 1, Maintenance, 12/23/24 9:38:00 AM EDT, Route to Pharmacy Electronically, [id number], Partial fill upon patientrequest if the prescription is for a schedule II opioid drug., 163, cm, 09/26/24 11:02:00 EST, Height, 86.3, kg, 05/20/24 15:51:00 EDT, Dry Weight Start Date: 12/23/24 Stop Date: 06/21/25 Status: Ordered Quantity: 270.0 Unit: tablet Repeat number: 2 clonazePAM 1 mg oral tablet 1 tablet = 1 mg, By Mouth, 2 times a day, # 60 tablet, 4 Refills, Maintenance, 12/04/24 9:44:00 AM EDT, Tablet, [facility] #[id number], per masspat-last filled 10/15/2019, 163, cm, 09/26/24 11:02:00 EST, Height, 86.3, kg, 05/20/24 15:51:00 EDT, Dry Weight Start Date: 12/04/24 Stop Date: 05/03/25 Status: Ordered Quantity: 60.0 Unit: tablet Repeat number: 5 Estradiol Patch 0.05 mg/24 hours weekly transdermal film, extended release 1 patch, Topically, Every week, please call [phone] if issues, # 12 patch, 4 Refills, Maintenance,05/26/24 2:59:00 PM EDT, Patch, [facility] #[id number], Partial fill upon patient request if the prescription is for a schedule II opioid drug., 163, cm, 05/26/24 14:56:00 EDT, Height, 86.3, kg, 05/20/24 15:51:00 EDT, Dry Weight Start Date: 05/26/24 Status: Ordered Quantity: 12.0 Unit: patch Repeat number: 5 levothyroxine 75 mcg (0.075 mg) oral tablet 1 tablet, By Mouth, Daily, # 90 tablet, 1 Refills, [id number], 163, cm, 03/15/22 15:44:00 EDT,Height, 77.5, kg, 02/01/22 8:39:00 EDT, Dry Weight Start Date: 03/29/22 Status: Ordered Quantity: 90.0 Unit: tablet Repeat number: 1 Liletta 52 mg intrauterine device 1 each = 52 mg, Intrauterine, Once, please tile picker proir to appointment, # 1 each, 0 Refills, Soft Stop, 03/13/24 12:06:00 PM EDT, [facility], Partial fill upon patient request [...] Gm,11 Refills, Maintenance, 02/19/24 9:01:00 PM EDT, [facility] #[id number], Partial fill upon patient request if [...] to potential interaction. Controlled Substance Agreement in place, # 56 tablet, 0 Refills, Hard Stop 03/10/25 10:41:00 PM EDT, 02/10/25 10:41:00 PM EDT, [facility] #[id number], 163, cm, 09/26/24 11:02:00 EST, Height, 86.3, kg, 05/20/24 15:51:00 EDT, Dry Weight Start Date: 02/10/25 Stop Date: 03/10/25 Status: Ordered Quantity: 56.0 Unit: tablet Repeat number: 1 [place], 31 G x 8 mm BD Ultra Fine III See Instructions, # 100 each, Refills 1, Tot. Refills 1, Maintenance, use as directed for Type 2 Diabetes Mellitus, 05/26/24 10:16:00 PM EDT, Supply, 163, cm, 05/26/24 14:56:00 EDT, Height, 86.3, kg, 05/20/24 15:51:00 EDT, Dry Weight Start Date: 05/26/24 Stop Date: 07/25/24 Status: Ordered Quantity: 100.0 Unit: each Repeat number: 2 phentermine 37.5 mg oral tablet 1 tablet = 37.5 mg, By Mouth, Daily in AM, for 30 days, at least one hour after meals, # 30 tablet,5 Refills, Acute 05/30/25 8:33:00 PM EDT, 12/01/24 8:33:00 PM EDT, Tablet, [id number], Partial fill upon patient request if the prescription is for a schedule II opioid drug., 163, cm, 09/26/2510:02:00 EST, Height, 86.3, kg, 05/20/24 15:51:00 EDT, Dry Weight Start Date: 12/01/24 Stop Date: 05/30/25 Status: Ordered Quantity: 30.0 Unit: tablet Repeat number: 6 pregabalin 75 mg oral capsule 1 capsule = 75 mg, By Mouth, 2 times a day, # 60 capsule, 2 Refills, Maintenance, 09/23/24 10:43:00 PM EST, Capsule, [facility] #[id number], Partial fill upon patient request if the prescription is for a schedule II opioid drug., 163, cm, 09/04/24 14:44:00 EST, Height, 86.3, kg, 05/20/24 15:51:00 EDT, Dry Weight Start Date: 09/23/24 Status: Ordered Quantity: 60.0 Unit: capsule Repeat number: 3 PROzac 20 mg oral capsule 40 mg, 2, capsule, By Mouth, Daily, # 180 capsule, Refills 1, Tot. Refills 1, Maintenance, 12/23/24 9:44:00 AM EDT, Route to Pharmacy Electronically, [id number], Partial fill upon patient request if the prescription is for a schedule II opioid drug., 163, cm, 09/26/24 11:02:00 EST, Height, 86.3, kg, 05/20/24 15:51:00 EDT, Dry Weight Start Date: 12/23/24 Stop Date: 06/21/25 Status: Ordered Quantity: 180.0 Unit: capsule Repeat number: 2 Remeron 15 mg oral tablet 1 tablet = 15 mg, By Mouth, Daily at bedtime, # 90 tablet, 1 Refills, Maintenance, 12/23/24 9:39:00 AM EDT, Tablet, [id number], Partial fill upon patient request if the prescription is for a schedule II opioid drug., 163, cm, 09/26/24 11:02:00 EST, Height, 86.3, kg, 05/20/24 15:51:00 EDT, DryWeight Start Date: 12/23/24 Stop Date: 06/21/25 Status: Ordered Quantity: 90.0 Unit: tablet Repeat number: 2 Remicade IVPB mg, IVPB, Every 6 weeks, Maintenance, 02/19/24 2:42:00 PM EDT Start Date: 02/19/24 Status: Ordered Repeat number: 1 Ventolin HFA 108 mcg/inh inhalation aerosol with adapter 2 puffs, Inhalation, Every 6 hours, PRN NEEDED FOR SHORTNESS OF BREATH OR WHEEZING, # 18 each, 5Refills, Maintenance, 11/24/24 7:52:00 PM EDT, [id number], 163, cm, 09/26/24 11:02:00 EST, Height, 86.3, kg, 05/20/24 15:51:00 EDT, Dry Weight Start Date: 11/24/24 Status: Ordered Quantity: 18.0 Unit: each Repeat number: 1 Wellbutrin XL 150 mg/24 hours oral tablet, extended release 1 tablet = 150 mg, By Mouth, Every 24 hours, # 90 tablet, 1 Refills, Maintenance, 12/23/24 9:44:00 AMEDT, ER Tablet, [id number], Partial fill upon patient request if the prescription is for a schedule II opioid drug., 163, cm, 09/26/24 11:02:00 EST, Height, 86.3, kg, 05/20/24 15:51:00 EDT, Dry Weight Start Date: 12/23/24 Stop Date: 06/21/25 Status: Ordered Quantity: 90.0 Unit: tablet Repeat [...] Confirmed Active Generalized anxiety disorder 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 Confirmed Active [...] Team Personnel Name: Michoacano Thorne MD Position: [facility] Physician - Gastroenterology Member Role: Lifetime Consulting Physician Address: [address] [place] [address], [address] [facility] [address] Telecom: Name: Jessica Gu RN Position: [facility] RN Member Role: Primary Care Nurse Name: Levi Ulloa MD Position: [facility] Physician - Primary Care Member Role: PCP Address: [address] [place] [id number] Telecom: Name: Ashley Gillette RN Position: [facility] RN Member Role: Primary Care Nurse Name: Maura Kim RN Position: [facility] RN Member Role: Primary Care Nurse Name: Eden Parham RN Position: [facility] Onco RN Member Role: Primary Care Nurse Name: Cathy Nuñez RN Position: [facility] RN Member Role: Primary Care Nurse Name: Soraida Mai RN Position: [facility] Onco RN Member Role: Primary Care Nurse Name: Kellee Ramirez RN Position: [facility] RN Member Role: Primary Care Nurse Name: Stephanie Rahman RN Position: [facility] RN Member Role: Primary Care Nurse Name: Sherry Martinez [place] Position: [facility] Office Staff Member Role: Primary Care Nurse Name: Noa Catalan RN Position: [facility] RN Member Role: Primary Care Nurse Name: Alisha Moon [place] Position: [facility] Office Staff Member Role: Primary Care Nurse Name: Qi Childress RN Position: [facility] RN Member Role: Primary Care Nurse Name: Lacy Martinez RN Position: [facility] ED RN W/OE and Tasks Member Role: Primary Care Nurse Name: Xochitl Baig RN Position: [facility] RN Member Role: Primary Care Nurse Name: Shelly Metcalf RN Position: [facility] Onco RN Member Role: Primary Care Nurse Name: Shawn Jeffrey RN Position: [facility] SN RN Member Role: Primary Care Nurse Name: Sadie Boykin RN Position: [facility] Nurse Member Role: Primary Care Nurse Name: Katlin Esteban RN Position: [facility] ED RN W/OE and Tasks Member Role: Primary Care Nurse Name: Lyudmila Leone Position: [facility] RN Supv Member Role: Primary Care Nurse Name: Prudencio Da Silva RN Position: [facility] RN Member Role: Primary Care Nurse Name: Karly Johnson RN Position: [facility] RN Member Role: Primary Care Nurse Name: Giselle Ward RN Position: [facility] RN Member Role: Primary Care Nurse Name: Annalise Lee RN Position: [facility] Nurse Member Role: Primary Care Nurse Name: Kellee Wen RN Position: [facility] RN Member Role: Primary Care Nurse Name: Zully Mcghee RN, I Position: [facility] RN Member Role: Primary Care Nurse Care Team Related Persons Name: ELOISA ESPINOZA Name: ELOISA GARZNO Name: CAROLYNN GARZON Name: BARBARA FIGUEROA Name: LUIS MIGUEL CREWS Insurance Providers Guarantor name: [facility] Information #: 1 Payer: [facility] Payer Identifier: NA Member Number: [id number] Group Number: [id number] Subscriber Identifier: [id number] Relationship to Subscriber: self Coverage Type: Medicaid (Managed Care) Coverage Verification Date: NA Telecom: NA Address: NA
== END 2025-02-26 16:10 | disposition home or self-care (01) ==
LOC: HO.HBS 15:31
PROVIDERS: PCP Internal Medicine; Visit Provider Physician Assistant Surgical
DX: E66.9 Obesity, unspecified (principal); Z68.33 Body mass index [BMI] 33.0-33.9, adult; Z90.3 Acquired absence of stomach [part of]; Z98.84 Bariatric surgery status
CPT/HCPCS: 99213

== ENCOUNTER → 2025-02-26 15:30 | Outpatient (BNVA) | payer OTHER, SELFPAY | PROVIDERS: PCP Internal Medicine; Visit Provider Physician Assistant Surgical | DX: E66.9 Obesity, unspecified (principal); L98.7 Excessive and redundant skin and subcutaneous tissue; R21 Rash and other nonspecific skin eruption; K90.49 Malabsorption due to intolerance, not elsewhere classified; Z68.32 Body mass index [BMI] 32.0-32.9, adult; Z90.49 Acquired absence of other specified parts of digestive tract; Z90.3 Acquired absence of stomach [part of]; Z98.84 Bariatric surgery status; Z98.890 Other specified postprocedural states | CPT/HCPCS: 99212 ==

== ENCOUNTER 2025-04-14 19:59 | Outpatient (REF) | payer OTHER, SELFPAY ==
[2025-04-14 20:02] LABS: MANUAL DIFF FLAG NO
[2025-04-14 20:11] LABS: Hematocrit 37.5 % (37.0-47.0); Hemoglobin 12.5 g/dl (12.0-16.0); Imm Gran Abs Auto 0.02 X10*3/uL (0.00-0.03); Imm Gran Pct Auto 0.3 % (0.0-0.4); Lymphocytes Absolute Auto 2.4 X10*3/uL (1.2-4.9); Mean Corpuscular HGB Conc 33.3 g/dl (31.0-35.0); Mean Corpuscular Hemoglobin 30.7 pg (27.0-33.0); Mean Corpuscular Volume 92.1 fL (80.0-98.0); NRBC Abs Auto 0.000 X10*3/uL (0.0-0.012); NRBC Pct Auto 0.0 /100WBC (0.0-0.2); Platelet Count 170 X10*3/uL (160-400); Red Blood Count 4.07 X10*6/uL (4.20-5.50); White Blood Count 6.4 X10*3/uL (4.8-10.8)
[2025-04-14 20:21] LABS: Alanine Aminotransferase 36 U/L (0-31); Albumin Level 3.8 g/dL (3.5-5.0); Alkaline Phosphatase 99 U/L (39-117); Anion Gap 13 (12-20); Aspartate Amino Transferase 45 U/L (5-31); Blood Urea Nitrogen 18 mg/dL (9-16); Calcium 8.9 mg/dL (8.4-10.2); Carbon Dioxide 23 mmol/L (22-29); Chloride 110 mmol/L (96-108); Estimated Glomerular Filt Rate > 60; Potassium 3.2 mmol/L (3.3-5.1); Sodium 143 mmol/L (135-145); Total Protein 6.5 g/dL (6.5-8.0)
== END 2025-04-14 20:00 | disposition home or self-care (01) ==
LOC: HO.HVNA 19:59
PROVIDERS: Visit Provider Internal Medicine Hepatology
DX: Z01.84 Encounter for antibody response examination (principal); K50.90 Crohn's disease, unspecified, without complications
CPT/HCPCS: 80048; 80076; 85025; 85652; 86140

== ENCOUNTER 2025-04-16 14:12 | Outpatient (AMB) | payer OTHER, SELFPAY ==
--- OUTSIDE RECORDS SUMMARY | 2025-04-15 23:59 | XMS_ITS | Continuity of Care Document ---
Author Organization [facility] Address [address] [place] [phone]- Care Team Providers Care Production Clerks Supervisor Name Role Phone Levi Ulloa MD Primary Care Physician [id number] Date(s): 03/16/25 - 04/15/25 [facility] [address] [place] [address]- Encounter Type: Triage Allergies, Adverse Reactions, Alerts [...] Poly (PPV23) (oldterm) 08/31/10 Given 1Result Comment: [facility]: [id number] 2Result Comment: [facility]: [id number] 3Result Comment: [id number] 4Result Comment: [06/19/2018] [facility] [place] [id number] 5Result Comment: [07/12/2016] given at [facility] [place] 6Result Comment: [07/16/2015] all screening questions answered 7Result Comment: [facility]: [id number] 8Admin Note: VIS GIVEN waiver signed and put to scanning 9Result Comment: [07/11/2017] [facility] [id number] Medications acetaminophen 500 mg oral tablet 1 tablet = 500 mg, By Mouth, Every 4 hours, PRN as needed for pain, # 50 tablet, 0 Refills, Maintenance, 02/25/24 4:44:00 PM EDT, Tablet, [id number], Partial fill upon patient requestif the prescription is for a schedule II opioid drug., 163, cm, 02/25/24 13:38:00 EDT, Height, 85.3, kg, 02/25/24 13:38:00 EDT, Dry Weight Start Date: 02/25/24 Status: Ordered Quantity: 50.0 Unit: tablet Repeat number: 1 busPIRone 10 mg oral tablet 10 mg, 1, tablet, By Mouth, 3 times a day, # 270 tablet, Refills 1, Tot. Refills 1, Maintenance, 04/14/25 3:29:00 PM EDT, Route to Pharmacy Electronically, [id number], Partial fill upon patient request if the prescription is for a schedule II opioid drug., 163, cm, 03/04/25 9:30:00 EDT, Height, 86.36, kg, 03/04/25 9:13:00 EDT, Dry Weight Start Date: 04/14/25 Stop Date: 10/11/25 Status: Ordered Quantity: 270.0 Unit: tablet Repeat number: 2 clonazePAM 1 mg oral tablet 1 tablet = 1 mg, By Mouth, 2 times a day, # 60 tablet, 4 Refills, Maintenance, 04/14/25 3:29:00 PM EDT, Tablet, [facility] #[id number], per masspat-last filled 10/15/2019, 163, cm, 03/04/25 9:30:00 EDT, Height, 86.36, kg, 03/04/25 9:13:00 EDT, Dry Weight Start Date: 04/14/25 Stop Date: 09/11/25 Status: Ordered Quantity: 60.0 Unit: tablet Repeat number: 5 Estradiol Patch 0.05 mg/24 hours weekly transdermal film, extended release 1 patch, Topically, Every week, please call [phone] if issues, # 12 patch, 4 Refills, Maintenance,05/26/24 2:59:00 PM EDT, Patch, [facility] #[id number], Partial fill upon patient request if the prescription is for a schedule II opioid drug., 163, cm, 05/26/24 14:56:00 EDT, Height, 86.3, kg, 05/20/24 15:51:00 EDT, Dry Weight Start Date: 05/26/24 Status: Ordered Quantity: 12.0 Unit: patch Repeat number: 5 levothyroxine 75 mcg (0.075 mg) oral tablet 1 tablet, By Mouth, Daily, # 90 tablet, 1 Refills, [id number], 163, cm, 03/15/22 15:44:00 EDT,Height, 77.5, kg, 02/01/22 8:39:00 EDT, Dry Weight Start Date: 03/29/22 Status: Ordered Quantity: 90.0 Unit: tablet Repeat number: 1 lidocaine 4% topical cream See Instructions, 1 application topically for the first two times when using the Port-A-Cath., # 15Gm, 0 Refills, Maintenance, 03/05/25 12:43:00 PM EDT, Cream, [id number], Partial fill upon patient request if the prescription is for a schedule II opioid drug., 1 application topically for the first two times when using the Port-A-Cath., 163, cm, 03/04/25 9:30:00 EDT, Height, 86.36, kg, 03/04/25 9:13:00 EDT, Dry Weight Start Date: 03/05/25 Status: Ordered Quantity: 15.0 Unit: g Repeat number: 1 lidocaine 5% topical cream See Instructions, 1 application the topically the first two times using the Port-A-Cath, # 15 Gm, 0Refills, Maintenance, 03/06/25 3:37:00 PM EDT, Cream, [id number], Partial fill upon patient request if the prescription is for a schedule II opioid drug., 1 application the topically the firsttwo times using the Port-A-Cath, 163, cm, 03/04/25 9:30:00 EDT, Height, 86.36, kg, 03/04/25 9:13:00EDT, Dry Weight Start Date: 03/06/25 Status: Ordered Quantity: 15.0 Unit: g Repeat number: 1 Liletta 52 mg intrauterine device 1 each = 52 mg, Intrauterine, Once, please picker operator 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 appointment, # 1 each, 0 Refills, Soft Stop, 03/13/24 12:06:00 PM EDT, [facility], Partial fill upon patient [...] Gm,11 Refills, Maintenance, 02/19/24 9:01:00 PM EDT, [id number], Partial fill upon patient request if the prescription is for a schedule II opioid drug., 17 Gm By Mouth Daily,x90 days,Instr:Titrate the dose every 5-7 days to target one soft stool daily, 163, cm, 02/19/24 14:59:00 EDT, Height, 97.4, kg, 02/19/24 14:59:00 EDT, Dry Weight Start Date: 02/19/24 Stop Date: 02/03/27 Status: Ordered Quantity: 527.0 Unit: g Repeat number: 12 Mounlorenzaro 5 mg/0.5 mL subcutaneous solution = 5 mg, Subcutaneous Injection, Every week, rotate injection sites, # 4 each, 2 Refills, Maintenance, 04/14/25 9:36:00 AM EDT, Solution, [id number], Partial fill upon patient request if the prescription is for a schedule II opioid drug., 163, cm, 03/04/25 9:30:00 EDT, Height, 86.36, kg, 03/04/25 9:13:00 EDT, Dry Weight Start Date: 04/14/25 Status: Ordered Quantity: 4.0 Unit: each Repeat number: 3 oxyCODONE 10 mg oral tablet 1 tablet = 10 mg, By Mouth, 2 times a day, PRN Pain , Moderate, for 28 days, Patient agrees to stopclonazepam due to potential interaction. Controlled Substance Agreement in place, # 56 tablet, 0 Refills, Hard Stop 04/29/25 2:45:00 PM EDT, 04/01/25 2:45:00 PM EDT, [id number], 163, cm, 03/04/25 9:30:00 EDT, Height, 86.36, kg, 03/04/25 9:13:00 EDT, Dry Weight Start Date: 04/01/25 Stop Date: 04/29/25 Status: Ordered Quantity: 56.0 Unit: tablet Repeat number: 1 Pen Canadian, 31 G x 8 mm BD Ultra [...] Refills, Maintenance, 09/23/24 10:43:00 PM EST, Capsule, [id number], Partial fill upon patient request if the prescription is for a schedule II opioid drug., 163, cm, 09/04/24 14:44:00 EST, Height, 86.3, kg, 05/20/24 15:51:00 EDT, Dry Weight Start Date: 09/23/24 Status: Ordered Quantity: 60.0 Unit: capsule Repeat number: 3 PROzac 20 mg oral capsule 40 mg, 2, capsule, By Mouth, Daily, # 180 capsule, Refills 1, Tot. Refills 1, Maintenance, 04/14/25 3:29:00 PM EDT, Route to Pharmacy Electronically, [id number], Partial fill upon patient request if the prescription is for a schedule II opioid drug., 163, cm, 03/04/25 9:30:00 EDT, Height, 86.36, kg, 03/04/25 9:13:00 EDT, Dry Weight Start Date: 04/14/25 Stop Date: 10/11/25 Status: Ordered Quantity: 180.0 Unit: capsule Repeat number: 2 Remeron 15 mg oral tablet 1 tablet = 15 mg, By Mouth, Daily at bedtime, # 90 tablet, 1 Refills, Maintenance, 04/14/25 3:29:00 PM EDT, Tablet, [id number], Partial fill upon patient request if the prescription is for a schedule II opioid drug., 163, cm, 03/04/25 9:30:00 EDT, Height, 86.36, kg, 03/04/25 9:13:00 EDT, DryWeight Start Date: 04/14/25 Stop Date: 10/11/25 Status: Ordered Quantity: 90.0 Unit: tablet Repeat number: 2 Remicade IVPB mg, IVPB, Every 6 weeks, Maintenance, 02/19/24 2:42:00 PM EDT Start Date: 02/19/24 Status: Ordered Repeat number: 1 Ventolin HFA 108 mcg/inh inhalation aerosol with adapter 2 puffs, Inhalation, Every 6 hours, PRN NEEDED FOR SHORTNESS OF BREATH OR WHEEZING, # 18 each, 5Refills, Maintenance, 11/24/24 7:52:00 PM EDT, [id number], 163, cm, 09/26/24 11:02:00 EST, Height, 86.3, kg, 05/20/24 15:51:00 EDT, Dry Weight Start Date: 11/24/24 Status: Ordered Quantity: 18.0 Unit: each Repeat number: 1 Wellbutrin XL 150 mg/24 hours oral tablet, extended release 1 tablet = 150 mg, By Mouth, Every 24 hours, # 90 tablet, 1 Refills, Maintenance, 04/14/25 3:29:00 PM EDT, ER Tablet, [id number], Partial fill upon patient request if the prescription is for aschedule II opioid drug., 163, cm, 03/04/25 9:30:00 EDT, Height, 86.36, kg, 03/04/25 9:13:00 EDT, Dry Weight Start Date: 04/14/25 Stop Date: 10/11/25 Status: Ordered Quantity: 90.0 Unit: tablet Repeat [...] Confirmed Active Generalized anxiety disorder 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 Confirmed Active [...] Team Personnel Name: Michoacano Thorne MD Position: [facility] Physician - Gastroenterology Member Role: Lifetime Consulting Physician Address: [address] [place] [address], [address] [facility] [place] [address]- Telecom: Name: Jessica Gu RN Position: [facility] RN Member Role: Primary Care Nurse Name: Kirsten Rosario RN Position: [facility] AMB Nurse Member Role: Primary Care Nurse Name: Levi Ulloa MD Position: [facility] Physician - Primary Care Member Role: PCP Address: [address] [place] [address]- Telecom: Name: Ashley Gillette RN Position: [facility] RN Member Role: Primary Care Nurse Name: Maura Kim RN Position: [facility] RN Member Role: Primary Care Nurse Name: Eden Parham RN Position: [facility] Onco RN Member Role: Primary Care Nurse Name: Cathy Nuñez RN Position: [facility] RN Member Role: Primary Care Nurse Name: Soraida Mai RN Position: [facility] Onco RN Member Role: Primary Care Nurse Name: Kellee Ramirez RN Position: [facility] RN Member Role: Primary Care Nurse Name: Stephanie Rahman RN Position: [facility] RN Member Role: Primary Care Nurse Name: Sherry Martinez [place] Position: [facility] Office Staff Member Role: Primary Care Nurse Name: Noa Catalan RN Position: [facility] RN Member Role: Primary Care Nurse Name: Alisha Moon [place] Position: [facility] Office Staff Member Role: Primary Care Nurse Name: Qi Childress RN Position: [facility] RN Member Role: Primary Care Nurse Name: Lacy Martinez RN Position: [facility] ED RN W/OE and Tasks Member Role: Primary Care Nurse Name: Xochitl Baig RN Position: [facility] RN Member Role: Primary Care Nurse Name: Shelly Metcalf RN Position: [facility] Onco RN Member Role: Primary Care Nurse Name: Shawn Jeffrey RN Position: [facility] SN RN Member Role: Primary Care Nurse Name: Sadie Boykin RN Position: [facility] AMB Nurse Member Role: Primary Care Nurse Name: Katlin Esteban RN Position: [facility] ED RN W/OE and Tasks Member Role: Primary Care Nurse Name: Lyudmila Leone Position: [facility] RN Supv Member Role: Primary Care Nurse Name: Prudencio Da Silva RN Position: [facility] RN Member Role: Primary Care Nurse Name: Karly Johnson RN Position: [facility] RN Member Role: Primary Care Nurse Name: Giselle Ward RN Position: [facility] RN Member Role: Primary Care Nurse Name: Annalise Lee RN Position: [facility] Nurse Member Role: Primary Care Nurse Name: Kellee Wen RN Position: [facility] RN Member Role: Primary Care Nurse Name: Zully Mcghee RN, I Position: [facility] RN Member Role: Primary Care Nurse Care Team Related Persons Name: ELOISA ESPINOZA Name: ELOISA GARZON Name: CAROLYNN GARZON Name: BARBARA FIGUEROA Name: LUIS MIGUEL CREWS Insurance Providers Guarantor name: YONATHAN [facility] Plan Information #: 1 Payer: [facility] Payer Identifier: NA Member Number: [id number] Group Number: Subscriber Identifier: [id number] Relationship to Subscriber: self Coverage Type: MEDICAID Coverage Verification Date: NA Telecom: NA Address: NA
--- NOTE | 2025-04-16 08:01 | MHC.OFFVISWM ---
Intake Visit Reasons: (tv) PO LSG 08/25/20 Allergies codeine (CODEINE) Allergy (Intermediate, Verified 02/26/25 15:38) HIVES, rash hydrocodone (From VICODIN) Allergy (Intermediate, Verified 02/26/25 15:38) HIVES shellfish derived Allergy (Intermediate, Verified 02/26/25 15:38) swollen HPI Comments Details: Patient is a pleasant 49-year-old female who returns to the office today in follow-up. She is status post panniculectomy on 12/12/2022 and sleeve gastrectomy on 08/25/2020. The panniculectomy was performed by Dr. Philippe and the sleeve gastrectomy was performed by Dr. Freeman. Weight today is 190.6 lb corresponding to a BMI of 32.7 Doing bariatric fusion multi vitamin Also complaining of excess skin of bilateral thighs, causing rubbing and discomfort with clothing. She has had intermittent rash in the groin that improves with clotrimazole cream. She has been having intermittent constipation and is followed by gastroenterology, Dr Thorne for her underlying Crohn's disease. Colonoscopy sunday and endometriosis bx and bladder sling yesterday. Had L5 laminoplasty surgery 11/02/23- spine surgery - dr geovanni TIERNEY, still sore and not back to work or able to exercise. F/U 09/04/24, referred to [facility], saw them early October and she was sent for EMG. That was done end of October. EMG reported nerve damage in C6, C7, C8. No evidence of carpal tunnel. Next step is 12/31/24 epidural injection by [facility]. Dr Brantley. SHe had that but it did not help. She continues to have bad pain in next and numbness to R>L hands and arms. [facility] sent her back to [facility] to get approval to get a trail with a differnet injection, that appt is set for 03/02/25. Additionally, she states she is got a port placed on 03/04/2025 for IV access given her history of Crohn's disease, she gets remicaide infusions. Now using Premier protein RTD if not using fairlife RTD shake Now using 7-9 am 1/2 premier protein in coffee 11-1 1/2 Fairlife rtd shake or 1/2 premier protein rtd 30 gm protein 3-4 pm built bar 6 pm meal with 6 forks protein and 6 forks veg drinking 64 oz water, no soda or juice Exercise plan: recumbent bike at work 2.5 mi 4 days per week, PF gym membership [facility] Medical History Intestinal malabsorption following gastrectomy Wears partial dentures Lab test negative for COVID-19 virus Shortness of breath Obesity (BMI 30-39.9) Obstructive sleep apnea Chronic back pain DDD (degenerative disc disease) Hypothyroidism Depression Anxiety Crohn's disease Type II diabetes mellitus Surgical History S/P placement of nerve stimulator History of sleeve gastrectomy History of bilateral tubal ligation History of fusion of cervical spine Other specified postprocedural states History of Achilles tendon repair History of section History of laparoscopic cholecystectomy Family History Father No problems noted. Mother Diabetes mellitus Brother No problems noted. Brother No problems noted. Brother No problems noted. Brother No problems noted. Brother No problems noted. Sister Type I diabetes mellitus Sister No problems noted. Son No problems noted. Son No problems noted. Son No problems noted. Daughter No problems noted. Daughter No problems noted. Social History Household Members: Significant Other Housing: House Are you a primary group care worker to a significant other at home: No Do you presently have visiting nurse or other home services: No Alcohol intake: never Comment: sleeping Patient Tobacco Use Status: Never used Tobacco Advance Directives Date on File: 08/15/16 service: No Current occupational status: employed Telehealth Telehealth Telehealth Platform: Telephone Location of provider rendering services: practice address Location of patient: address on file Patient Identification confirmed using: Name, : Yes Telehealth method: voice only Patient verbally consented to treatment: Yes Patient verbally consented to billing insurance company: Yes Patient informed of any privacy concerns related to visit: Yes Minutes spent on Phone/Video with Pt.: 15 Assessment & Plan Assessment & Plan (1) History of sleeve gastrectomy: Code(s): Z90.3 - Acquired absence of stomach [part of] Category: Surgical Plan: Patient is now following a meal plan consistently however exercising inconsistently. She states she is using her stationary bike at work 4 days a week although is unsure about how many calories she is burning. I encouraged her to go to [employer] and set up the stationary bike there with the same parameters that she uses at work so she can identify how many calories she is burning at work as well as to increase days at the gym. Ideally burning 300 calories per day 7 days a week. If she is only able to exercise 5 days a week then goal would be 400 calories per day. We will have her return to the office in a proximally 2 months, calling sooner if any questions or concerns
--- OUTSIDE RECORDS SUMMARY | 2025-04-16 14:26 | XMS_ITS | Clinical Summary ---
Author Organization [facility] ity Address [address] [place] [address] Care Team Providers Care Teacher Advisor Name Role Phone Unavailable Primary Care Provider [...] 1996 COVID-19 Vaccine (2023-2 5 season) 2024 Depression Screening 09/17/2024 Influenza Vaccine (#1) 2025 HIB Vaccines Aged Out No longer [...] age to complete this topic Meningococcal B Vaccine Aged Out No l onger eligible based on patient's age to complete this topic Pneumococcal Vaccine: Pediat rics (0 to 5 Years) and At-Risk Patients (6 to 49 Years) Aged Out No longer eligible b ased on patient's age to complete this topic RSV Immunization Patients Un shad 20 months Aged Out No longer eligible b ased on patient's age to complete this topic Varicella Vaccines Aged Out No longer eligible based on patient's age to complete this topic
== END 2025-04-16 14:24 | disposition home or self-care (01) ==
LOC: HO.HBS 14:12
PROVIDERS: PCP Internal Medicine; Visit Provider Physician Assistant Surgical
DX: E66.9 Obesity, unspecified (principal); Z68.32 Body mass index [BMI] 32.0-32.9, adult; Z90.3 Acquired absence of stomach [part of]; Z98.84 Bariatric surgery status
CPT/HCPCS: 99213

== ENCOUNTER 2025-05-21 14:46 | Outpatient (AMB) | payer OTHER, SELFPAY ==
--- NOTE | 2025-05-21 14:49 | A.OFFVIS_ITS ---
VS Expanded 05/21/25 14:57 BP 114/56 L Blood Pressure Location Rt brachial Blood Pressure Position Sitting Pulse 77 Pulse Source Pulse Oximeter Temp 97.0 F Temperature Source Temporal Artery Scan Pulse Oximetry 96 Oxygen Delivery Method Room Air Height 5 ft 4 in Weight 180 lb 3.2 oz BMI 30.9 Body Fat % 34.9 Body Fat Mass 2.8 Fat Free Mass 117.2 Visceral Fat Rating 0 Body Water % 4.3 Body Water Mass 3.4 Muscle Mass/Score 111.4 Basal Metabolic Rate/Score 1,589 Intake Visit Reasons: OV PO LSG 08/25/20 Allergies codeine (CODEINE) Allergy (Intermediate, Verified 05/21/25 14:54) HIVES, rash hydrocodone (From VICODIN) Allergy (Intermediate, Verified 05/21/25 14:54) HIVES shellfish derived Allergy (Intermediate, Verified 05/21/25 14:54) swollen Medication List - Last Reconciled 05/21/25 by TYLER Rogers albuterol sulfate 90 mcg/actuation 2 puffs inhalation QID PRN bisacodyl (Dulcolax (bisacodyl)) 10 mg FL DAILY PRN bupropion HCl XL 150 mg PO DAILY buspirone 10 mg PO TID clonazepam 1 mg PO BID PRN clotrimazole 1% (Antifungal (clotrimazole)) 1 appl topical BID PRN famotidine (Pepcid) 20 mg PO DAILY fluoxetine 20 mg PO DAILY hydromorphone mg PO infliximab (Remicade) IV Q8W Held on 08/26/20. Instructions: Resume on 09/22/20. Discuss timing of first dose with Dr Craven inulin 2 grams PO DAILY levothyroxine 75 mcg PO DAILY mirtazapine (Remeron) 15 mg PO BEDTIME nwtozgmbhxgo-npa-zidd-FA-vit K 45 mg iron- 800 mcg-120 mcg (Bariatric Multivitamins) 1 cap PO DAILY HPI Comments Details: Patient is a pleasant 49-year-old female who returns to the office today in follow-up. She is status post panniculectomy on 12/12/2022 and sleeve gastrectomy on 08/25/2020. The panniculectomy was performed by Dr. Philippe and the sleeve gastrectomy was performed by Dr. Freeman. Weight today is 180.2 lb corresponding to a BMI of 30.9 Doing bariatric fusion multi vitamin Also complaining of excess skin of bilateral thighs, causing rubbing and discomfort with clothing. She has had intermittent rash in the groin that improves with clotrimazole cream. She has been having intermittent constipation and is followed by gastroenterology, Dr Thorne for her underlying Crohn's disease. Colonoscopy sunday and endometriosis bx and bladder sling yesterday. Had L5 laminoplasty surgery 11/02/23- spine surgery - dr geovanni TIERNEY, still sore and not back to work or able to exercise. F/U 09/04/24, referred to [facility], saw them early October and she was sent for EMG. That was done end of October. EMG reported nerve damage in C6, C7, C8. No evidence of carpal tunnel. Next step is 12/31/24 epidural injection by [facility]. [facility] Brantley. SHe had that but it did not help. She continues to have bad pain in next and numbness to R>L hands and arms. [facility] sent her back to [facility] to get approval to get a trail with a differnet injection, that appt is set for 03/02/25. Additionally, she states she is got a port placed on 03/04/2025 for IV access given her history of Crohn's disease, she gets remicaide infusions. Now using Premier protein RTD Now using 7-9 am 1/2 premier protein in coffee 11-1 1/2 premier protein rtd 30 gm protein 3-4 pm built bar 6 pm meal with 6 forks protein and 6 forks veg drinking 64 oz water, no soda or juice Exercise plan: recumbent bike at work 2.5 mi 5 days per week, PF gym membership [facility] Medical History Intestinal malabsorption following gastrectomy Wears partial dentures Lab test negative for COVID-19 virus Shortness of breath Obesity (BMI 30-39.9) Obstructive sleep apnea Chronic back pain DDD (degenerative disc disease) Hypothyroidism Depression Anxiety Crohn's disease Type II diabetes mellitus Surgical History S/P placement of nerve stimulator History of sleeve gastrectomy History of bilateral tubal ligation History of fusion of cervical spine Other specified postprocedural states History of Achilles tendon repair History of section History of laparoscopic cholecystectomy Family History Father No problems noted. Mother Diabetes mellitus Brother No problems noted. Brother No problems noted. Brother No problems noted. Brother No problems noted. Brother No problems noted. Sister Type I diabetes mellitus Sister No problems noted. Son No problems noted. Son No problems noted. Son No problems noted. Daughter No problems noted. Daughter No problems noted. Social History Household Members: Significant Other Housing: House Are you a primary health care facility administrator to a significant other at home: No Do you presently have visiting nurse or other home services: No Alcohol intake: never Comment: sleeping Patient Tobacco Use Status: Never used Tobacco Advance Directives Date on File: 08/15/16 service: No Current occupational status: employed Physical Exam Const General: healthy appearing and no acute distress Resp Effort & Inspection: normal respiratory effort Auscultation: clear to auscultation bilaterally Cardio Rate: regular rate Rhythm: regular rhythm GI Auscultation: normal bowel sounds Extrem General: Yes normal to inspection Assessment & Plan Assessment & Plan (1) History of sleeve gastrectomy: Code(s): Z90.3 - Acquired absence of stomach [part of] Category: Surgical Plan: Patient is following the meal plan. She has increased her exercise by 1 day. She is trying to exercise as much as possible, I have encouraged her to increase her distance as she is able given her ongoing chronic medical issues. I have renewed the clotrimazole cream as she does report rashes to the groin. Follow- up in the office as scheduled. Medications: Refilled clotrimazole 1% (Antifungal (clotrimazole)) apply sparingly bid x 7 days if rash 1 appl topical BID PRN 45 grams 4RF Rash
[2025-05-21 14:57] VITALS: BP 114/56; PULSE 77; TEMP 36.1; O2SAT 96; BMI 30.9
--- NOTE | 2025-05-21 15:14 | MHC.NURWM ---
Intake VS Expanded 05/21/25 14:57 BP 114/56 L Blood Pressure Location Rt brachial Blood Pressure Position Sitting Pulse 77 Pulse Source Pulse Oximeter Temp 97.0 F Temperature Source Temporal Artery Scan Pulse Oximetry 96 Oxygen Delivery Method Room Air Height 5 ft 4 in Weight 180 lb 3.2 oz BMI 30.9 Body Fat % 34.9 Body Fat Mass 2.8 Fat Free Mass 117.2 Visceral Fat Rating 0 Body Water % 4.3 Body Water Mass 3.4 Muscle Mass/Score 111.4 Basal Metabolic Rate/Score 1,589 Intake Visit Reasons: OV PO LSG 08/25/20 Allergies codeine (CODEINE) Allergy (Intermediate, Verified 05/21/25 14:54) HIVES, rash hydrocodone (From VICODIN) Allergy (Intermediate, Verified 05/21/25 14:54) HIVES shellfish derived Allergy (Intermediate, Verified 05/21/25 14:54) swollen Medication List - Last Reconciled 05/21/25 by TYLER Rogers albuterol sulfate 90 mcg/actuation 2 puffs inhalation QID PRN bisacodyl (Dulcolax (bisacodyl)) 10 mg ID DAILY PRN bupropion HCl XL 150 mg PO DAILY buspirone 10 mg PO TID clonazepam 1 mg PO BID PRN clotrimazole 1% (Antifungal (clotrimazole)) 1 appl topical BID PRN famotidine (Pepcid) 20 mg PO DAILY fluoxetine 20 mg PO DAILY hydromorphone mg PO infliximab (Remicade) IV Q8W Held on 08/26/20. Instructions: Resume on 09/22/20. Discuss timing of first dose with Dr Merissa michelle 2 grams PO DAILY levothyroxine 75 mcg PO DAILY mirtazapine (Remeron) 15 mg PO BEDTIME pwyjnlortkwn-vfy-eioz-FA-vit K 45 mg iron- 800 mcg-120 mcg (Bariatric Multivitamins) 1 cap PO DAILY Coding Diagnoses History of sleeve gastrectomy Z90.3 Assessment & Plan Assessment & Plan (1) History of sleeve gastrectomy: Code(s): Z90.3 - Acquired absence of stomach [part of] Category: Surgical Medications: Refilled clotrimazole 1% (Antifungal (clotrimazole)) apply sparingly bid x 7 days if rash 1 appl topical BID PRN 45 grams 4RF Rash
--- OUTSIDE RECORDS SUMMARY | 2025-05-21 15:59 | XMS_ITS | Clinical Summary ---
Author Organization [facility] ity Address [address] [place] [address] Care Team Providers Care Bank Examiner Name Role Phone Unavailable Primary Care Provider [...] Cervical Cancer Screening: P ap Smear 1996 Depression Screening 09/17/2024 COVID-19 Vaccine ( - 2023-2 5 season) 2025 Influenza Vaccine (#1) 2025 HIB Vaccines Aged [...]
== END 2025-05-21 15:09 | disposition home or self-care (01) ==
LOC: HO.HBS 14:46
PROVIDERS: PCP Internal Medicine; Visit Provider Physician Assistant Surgical
DX: E66.9 Obesity, unspecified (principal); Z68.30 Body mass index [BMI] 30.0-30.9, adult; Z90.3 Acquired absence of stomach [part of]; Z98.84 Bariatric surgery status
CPT/HCPCS: 99213

== ENCOUNTER → 2025-05-21 14:46 | Outpatient (BNVA) | payer OTHER, SELFPAY | PROVIDERS: PCP Internal Medicine; Visit Provider Physician Assistant Surgical | DX: L98.7 Excessive and redundant skin and subcutaneous tissue (principal); R21 Rash and other nonspecific skin eruption; K59.00 Constipation, unspecified; Z68.30 Body mass index [BMI] 30.0-30.9, adult; Z98.890 Other specified postprocedural states; Z90.3 Acquired absence of stomach [part of] | CPT/HCPCS: 99212 ==

== ENCOUNTER 2025-08-10 12:27 | Outpatient (AMB) | payer OTHER, SELFPAY ==
--- NOTE | 2025-08-10 12:33 | MHC.OFFVISWM ---
VS Expanded 08/10/25 12:36 Height 5 ft 4 in Weight 166 lb 2 oz BMI 28.5 Intake Visit Reasons: TV PO LSG 08/25/20 Allergies codeine (CODEINE) Allergy (Intermediate, Verified 05/21/25 14:54) HIVES, rash hydrocodone (From VICODIN) Allergy (Intermediate, Verified 05/21/25 14:54) HIVES shellfish derived Allergy (Intermediate, Verified 05/21/25 14:54) swollen Medication List - Last Reconciled 08/10/25 by TYLER Donovan albuterol sulfate 90 mcg/actuation 2 puffs inhalation QID PRN bisacodyl (Dulcolax (bisacodyl)) 10 mg PA DAILY PRN bupropion HCl XL 150 mg PO DAILY buspirone 10 mg PO TID clonazepam 1 mg PO BID PRN clotrimazole 1% (Antifungal (clotrimazole)) 1 appl topical BID PRN famotidine (Pepcid) 20 mg PO DAILY fluoxetine 20 mg PO DAILY hydromorphone mg PO infliximab (Remicade) IV Q8W Held on 08/26/20. Instructions: Resume on 09/22/20. Discuss timing of first dose with Dr Craven inulin 2 grams PO DAILY levothyroxine 75 mcg PO DAILY mirtazapine (Remeron) 15 mg PO BEDTIME [id number]-arr-thpt-FA-vit K 45 mg iron- 800 mcg-120 mcg (Bariatric Multivitamins) 1 cap PO DAILY HPI Comments Details: Patient is a pleasant 49-year-old female who returns to the office today in follow-up. She is status post panniculectomy on 12/12/2022 and sleeve gastrectomy on 08/25/2020. The panniculectomy was performed by Dr. Philippe and the sleeve gastrectomy was performed by Dr. Craven. Weight loss of 18lb since last OV 3mo ago. Also complaining of excess skin of bilateral thighs, causing rubbing and discomfort with clothing. She has had intermittent rash in the groin that improves with clotrimazole cream. She has been having intermittent constipation and is followed by gastroenterology, Dr Thorne for her underlying Crohn's disease. Recent colonoscopy, endometriosis bx and bladder sling over the summer as well. Had L5 laminoplasty surgery 11/02/23- spine surgery - dr geovanni TIERNEY. Additionally, she states she is got a port placed on 03/04/2025 for IV access given her history of Crohn's disease, she gets remicaide infusions. She had additional disc fusion a few weeks ago and recovering ok- some difficulty swallowing due to where surgeon got access. Expected to last 3-4 weeks. Now using 2 Premier premade shakes per day 1 yogurt with 15-20g protein Bariatric fusion multi vitamin adequate hydration Exercise plan: recumbent bike at work 2.5 mi 5 days per week, gym membership [facility] Medical History Intestinal malabsorption following gastrectomy Wears partial dentures Lab test negative for COVID-19 virus Shortness of breath Obesity (BMI 30-39.9) Obstructive sleep apnea Chronic back pain DDD (degenerative disc disease) Hypothyroidism Depression Anxiety Crohn's disease Type II diabetes mellitus Surgical History S/P placement of nerve stimulator History of sleeve gastrectomy History of bilateral tubal ligation History of fusion of cervical spine Other specified postprocedural states History of Achilles tendon repair History of section History of laparoscopic cholecystectomy Family History Father No problems noted. Mother Diabetes mellitus Brother No problems noted. Brother No problems noted. Brother No problems noted. Brother No problems noted. Brother No problems noted. Sister Type I diabetes mellitus Sister No problems noted. Son No problems noted. Son No problems noted. Son No problems noted. Daughter No problems noted. Daughter No problems noted. Social History Household Members: Significant Other Housing: House Are you a primary care program director to a significant other at home: No Do you presently have visiting nurse or other home services: No Alcohol intake: never Comment: sleeping Patient Tobacco Use Status: Never used Tobacco Advance Directives Date on File: 08/15/16 service: No Current occupational status: employed Telehealth Telehealth Telehealth Platform: Telephone Location of provider rendering services: practice address Location of patient: address on file Patient Identification confirmed using: Name, : Yes Telehealth method: voice only Patient verbally consented to treatment: Yes Patient verbally consented to billing insurance company: Yes Patient informed of any privacy concerns related to visit: Yes Minutes spent on Phone/Video with Pt.: 15 Assessment & Plan Assessment & Plan (1) History of sleeve gastrectomy: Code(s): Z90.3 - Acquired absence of stomach [part of] Category: Surgical (2) Overweight: Code(s): E66.3 - Overweight Category: Medical (3) S/P panniculectomy: Code(s): Z98.890 - Other specified postprocedural states Category: Surgical Plan Pt has lost weight on current meal plan. She is limited in what she can take in currently but getting adequate protein. I recommended that even once she is able to eat a larger variety of foods, she continue the same basic meal plan of protein shakes plus one meal of solid protein plus veg each day. Goal for thighplasty is weight of 157lb or less for BMI < 27. RTC 3mo TV, gave pt my phone number and encouraged her to communicate between visits with any questions.
[2025-08-10 12:36] VITALS: BMI 28.5
== END 2025-08-10 12:53 | disposition home or self-care (01) ==
LOC: HO.HBS 12:27
PROVIDERS: PCP Internal Medicine; Visit Provider Physician Assistant Surgical
DX: E66.3 Overweight (principal); Z68.28 Body mass index [BMI] 28.0-28.9, adult; Z90.3 Acquired absence of stomach [part of]; Z98.890 Other specified postprocedural states; Z98.84 Bariatric surgery status
CPT/HCPCS: 98013